=== PATIENT | female | born 1935 | race Caucasian/White ===

== ENCOUNTER → 2023-11-21 12:19 | Outpatient (REF) | payer MEDICARE, BC, SELFPAY ==
[2023-11-21 14:22] LABS: % Basophils 0.7 % (0-2); % Eosinophils 1.9 % (0-6); % Immature Granulocytes 0.2 % (0-0.5); % Lymphocytes 18.8 % (20.5-51.1); % Monocytes 8.9 % (1.7-9.3); % Neutrophils 69.5 % (42.2-75.2); Absolute Eosinophils 0.1 10^3/uL (0-0.7); Absolute Lymphocytes 0.8 10^3/uL (1.2-3.4); Absolute Monocytes 0.4 10^3/uL (0.1-0.6); Absolute Neutrophils 2.9 10^3/uL (1.4-6.5); Hematocrit 32.4 % (37.0-47.0); Hemoglobin 10.6 g/dL (12.0-16.0); Mean Corp Hgb Conc. 32.7 g/dL (33.0-37.0); Mean Corpuscular Volume 94.7 fL (81.0-99.0); Mean Platelet Volume 10.7 fL (7.4-10.4); Nucleated Red Blood Cells % 0 %; Platelet Count 211 10^3/uL (130-400); Red Blood Cell Count 3.42 10^6/uL (4.20-5.40); White Blood Cell Count 4.2 10^3/uL (4.8-10.8)
[2023-11-21 15:02] LABS: TSH Reflex To Free T4 9.54 uIU/ml (0.47-4.68)
[2023-11-21 15:32] LABS: Free T4 2.28 ng/dl (0.78-2.19)
== END ==
LOC: HWLAB 12:19
PROVIDERS: ATTENDING PHYSICIAN Family Medicine
DX: D64.9 Anemia, unspecified (principal); E78.5 Hyperlipidemia, unspecified
CPT/HCPCS: 36415; 84439; 84443; 85025

== ENCOUNTER → 2023-12-09 12:39 | Outpatient (REF) | payer MEDICARE, BC, SELFPAY ==
[2023-12-09 15:35] LABS: % Basophils 0.4 % (0-2); % Eosinophils 1.2 % (0-6); % Immature Granulocytes 0.2 % (0-0.5); % Lymphocytes 15.5 % (20.5-51.1); % Neutrophils 73.7 % (42.2-75.2); Absolute Eosinophils 0.1 10^3/uL (0-0.7); Absolute Lymphocytes 0.8 10^3/uL (1.2-3.4); Absolute Monocytes 0.4 10^3/uL (0.1-0.6); Absolute Neutrophils 3.6 10^3/uL (1.4-6.5); Hematocrit 36.4 % (37.0-47.0); Hemoglobin 11.8 g/dL (12.0-16.0); Mean Corp Hgb Conc. 32.4 g/dL (33.0-37.0); Mean Corpuscular Hgb 30.5 pg (27.0-31.0); Mean Corpuscular Volume 94.1 fL (81.0-99.0); Nucleated Red Blood Cells % 0 %; Red Blood Cell Count 3.87 10^6/uL (4.20-5.40); Red Cell Dist. Width 15.3 % (11.5-14.5); White Blood Cell Count 4.9 10^3/uL (4.8-10.8)
[2023-12-09 15:51] LABS: ALT (SGPT) 38 U/L (0-35); AST (SGOT) 47 U/L (14-36); Alkaline Phosphatase 112 U/L (38-126); Blood Urea Nitrogen 30 mg/dl (7-17); Calcium 9.5 mg/dl (8.4-10.2); Carbon Dioxide 32 mmol/L (22-30); Chloride 95 mmol/L (98-107); Glucose 108 mg/dl (70-99); Iron 83 ug/dl (37-170); Sodium 135 mmol/L (135-145); Total Bilirubin 0.9 mg/dl (0.2-1.3); Total Protein 7.1 g/dl (6.3-8.2); eGFR > 60.00
[2023-12-09 15:53] LABS: NT-proBNP 2310 pg/ml
[2023-12-09 16:01] LABS: Percent Saturation 27 % (20-50); Total Iron Binding Capacity 302 ug/dl (265-497)
[2023-12-09 16:39] LABS: Free T4 1.93 ng/dl (0.78-2.19)
== END ==
LOC: HWLAB 12:39
PROVIDERS: ATTENDING PHYSICIAN Internal Medicine Hematology & Oncology; FAMILY PHYSICIAN Family Medicine; REFERRING PHYSICIAN Internal Medicine Cardiovascular Disease
DX: D50.9 Iron deficiency anemia, unspecified (principal); I48.0 Paroxysmal atrial fibrillation; I50.32 Chronic diastolic (congestive) heart failure; Z95.2 Presence of prosthetic heart valve; R06.02 Shortness of breath
CPT/HCPCS: 36415; 71046; 80053; 82728; 83540; 83550; 83880; 84439; 84443; 85025

== ENCOUNTER → 2023-12-25 06:29 | Day surgery (SDC) | payer MEDICARE, BC, SELFPAY | LOC: GI 06:29 | PROVIDERS: ATTENDING PHYSICIAN Specialist | DX: R13.10 Dysphagia, unspecified (principal); R11.2 Nausea with vomiting, unspecified; K31.89 Other diseases of stomach and duodenum; K29.50 Unspecified chronic gastritis without bleeding | CPT/HCPCS: 43239; 88305; 88342 ==

== ENCOUNTER 2023-12-27 22:21 | Inpatient (IN) | payer MEDICARE, BC, SELFPAY ==
[2023-12-27 20:15] VITALS: BP 106/58
[2023-12-27 20:18] VITALS: BMI 16.2
[2023-12-27 20:19] VITALS: BP 106/58
[2023-12-27 20:32] LABS: % Basophils 0.4 % (0-2); % Eosinophils 0.1 % (0-6); % Immature Granulocytes 0.3 % (0-0.5); % Lymphocytes 15.5 % (20.5-51.1); % Monocytes 10.3 % (1.7-9.3); % Neutrophils 73.4 % (42.2-75.2); Absolute Lymphocytes 1.1 10^3/uL (1.2-3.4); Absolute Monocytes 0.8 10^3/uL (0.1-0.6); Absolute Neutrophils 5.4 10^3/uL (1.4-6.5); Hematocrit 37.9 % (37.0-47.0); Hemoglobin 12.9 g/dL (12.0-16.0); Mean Corpuscular Hgb 30.4 pg (27.0-31.0); Mean Corpuscular Volume 89.4 fL (81.0-99.0); Mean Platelet Volume 10.5 fL (7.4-10.4); Nucleated Red Blood Cells % 0 %; Platelet Count 217 10^3/uL (130-400); Red Blood Cell Count 4.24 10^6/uL (4.20-5.40); Red Cell Dist. Width 14.2 % (11.5-14.5); White Blood Cell Count 7.3 10^3/uL (4.8-10.8)
[2023-12-27 20:53] LABS: ALT (SGPT) 61 U/L (0-35); AST (SGOT) 70 U/L (14-36); Albumin 3.2 g/dl (3.5-5.0); Alkaline Phosphatase 81 U/L (38-126); Blood Urea Nitrogen 18 mg/dl (7-17); Calcium 7.7 mg/dl (8.4-10.2); Carbon Dioxide 27 mmol/L (22-30); Chloride 100 mmol/L (98-107); Estimated Creatinine Clearance 45 ml/min; Glucose 103 mg/dl (70-99); Potassium 2.7 mmol/L (3.5-5.1); Sodium 132 mmol/L (135-145); Total Bilirubin 0.8 mg/dl (0.2-1.3); Total Protein 5.9 g/dl (6.3-8.2); eGFR > 60.00
[2023-12-27 21:00] VITALS: BP 73/56
[2023-12-27 21:04] VITALS: BP 92/51
[2023-12-27 21:13] LABS: Magnesium 1.5 mg/dl (1.6-2.3)
[2023-12-27] MEDS: NSS 500 IV (21:16)
--- NOTE | 2023-12-27 21:18 | ED.GENMED ---
History of Present Illness
General
Chief Complaint: Weakness
Source: patient
Time Seen by Provider: 12/27/23 20:54
Travel History
Have you had any contact with someone who has COVID-19?: No
Do you have any symptoms of coronavirus? Fever > 100 degrees, chills, cough, shortness of breath, sore throat, loss of taste or smell, muscle aches, or headache?: No
History of Present Illness
History of Present Illness:
88-year-old female with past medical history of atrial fibrillation, CHF, multiple chronic GI symptoms status post endoscopy 2 days ago presenting to the emergency department via EMS from home due to generalized weakness, poor p.o. intake and
generally feeling unwell since her endoscopy 2 days ago. Patient states when she awoke this morning she felt very lightheaded noting that the night prior she had vomited at least twice. She notes that she was able to tolerate a Coca-[employer]a
yesterday. Patient has secondary concern of feeling as if she is in A-fib noting some intermittent palpitations. She is currently not anticoagulated as she notes she was cardioverted about 8 months ago followed by cardiology she no to be a blood
thinner. Patient is denying any chest pain, palpitations currently, diaphoresis, exertional dyspnea, orthopnea. Patient notes that she is very upset as she has many different things that are causing her complications physically and she does not
know why.
Past History
Past History
ED Past Medical History: Arrthythmia (PAF, s/p AV replacement April 2016), CHF, GERD, Hypercholesterolemia, Valvular disease (, s/p AVR) and Other ( pneumonia, hiatal hernia, arthritis, cataracts, glaucoma, macular degeneration, shingles, skin
cancer, small bowel obstruction)
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
surgery)
Patient has exhibited threatening behavior?: No
Social History
Tobacco: Non-smoker
Alcohol: None
Drug: None
Personal:
Living: alone
Employment: Retired
Family History
Family History: Other (Nonsignificant)
Review of Systems
Review of Systems
All Other Systems: ROS reviewed and negative except as documented in HPI and ROS
Phy Exam
Physical Exam
Physical Exam:
GENERAL: Alert , in no apparent distress, thin and frail
head: Normocephalic atraumatic
EYE: Clear conjunctiva
NECK: Supple
ENT: o/p clr, mmm.
CARDIAC: Irregularly irregular, t heart rate between 88 and 107 bpm
LUNGS: Clear breath sounds bilaterally, no acute respiratory distress,
ABDOMEN: Soft, without focal tenderness, no r/g, no cvat
NEUROLOGICAL: Alert and oriented
SKIN: Warm and dry, skin intact.
MUSCULOSKELETAL: No edema, well perfused.
PSYCH: Normal and appropriate interaction.
Scores
Heart Failure Risk
Heart Failure Risk Score: Not Applicable
Heart Score for Chest Pain Patients
STEMI patient?: Not applicable
Withdrawal Assessment of Alcohol
Withdrawal Assessment Completed?: Not applicable
Course
Orders/Labs/Results
Orders:
Orders
12/27/23 20:05
Electrocardiogram (*1) Urgent
Reason for Study: Fatigue / Weakness
EKG- Treatment ONCE
12/27/23 20:22
CMP [Comprehensive Metabolic Panel] Urgent
Complete Blood Count/With Diff Routine
Magnesium Urgent
Comment: ADD ON
12/27/23 20:55
Add On- LAB Urgent
Tests Added?: magnesium, parathyroid hormone, troponin
12/27/23 20:56
Potassium Chloride [KCl] 40 meq PO NOW STA
12/27/23 21:09
0.9% Sodium Chloride 500 ml [Nss] 500 ml IV BOLUS
12/27/23 21:19
COVID-19 Antigen Urgent
Source: Nasal Swab
Influenza A+B Rapid Molecular Urgent
GIO Source: Nasal Swab
Specimen Description:
Ondansetron Injectable [Zofran] 4 mg IV NOW STA
12/27/23 21:37
Magnesium Sulfate 2 Gram/50 ml [Magnesium Sulfate] 2 gram in 50 ml IV NOW
12/27/23 21:40
Potassium Chloride [KCl] 40 meq 0.9% Sodium Chloride 250 ml [Nss] 250 ml IV NOW
12/27/23 21:47
Troponin I Urgent
12/27/23 21:53
Admit/Transfer Patient As Directed
Co-Sign Provider:
Level of Care: Inpatient admission
Assign to:: Telemetry
Physician / Group: [email or web address]
Diagnosis: Recurrent prox AF, mild hypotension, Hypokalemia, low Mg
Reason for Telemetry: Arrhythmia
Date to Stop Telemetry: 12/30/23
Time to Stop Telemetry: 11:00
Reason for Hospitalization: Recurrent prox AF, mild hypotension, Hypokalemia, low Mg
Expected length of stay greater than two midnights?: Yes
ELOS- Estimated Length of Stay in days: 3
I certify the patient meets the requirements for IP care: Yes
12/27/23 21:56
Code Status As Directed
Resuscitation Status: Full Code
12/27/23 22:05
Code Status As Directed
Resuscitation Status: Do not resuscitate
Based on pt advanced directive or healthcare POA form: Yes
Decision communicated with: patient in the presence of RN
DNR Bracelet Application ONCE
12/30/23 11:00
DC Protocol for Telemetry ONCE
Abnormal Lab Results
12/27/23
20:22
MPV 10.5 H fL
(7.4-10.4)
Absolute Lymphs (auto) 1.1 L 10^3/uL
(1.2-3.4)
Absolute Monos (auto) 0.8 H 10^3/uL
(0.1-0.6)
Lymphocytes % 15.5 L %
(20.5-51.1)
Monocytes % 10.3 H %
(1.7-9.3)
Sodium 132 L mmol/L
(135-145)
Potassium 2.7 L* mmol/L
(3.5-5.1)
BUN 18 H mg/dl
(7-17)
Glucose 103 H mg/dl
(70-99)
Calcium 7.7 L mg/dl
(8.4-10.2)
Magnesium 1.5 L mg/dl
(1.6-2.3)
AST 70 H U/L
(14-36)
ALT 61 H U/L
(0-35)
Total Protein 5.9 L g/dl
(6.3-8.2)
Albumin 3.2 L g/dl
(3.5-5.0)
12/27/23 20:22
12/27/23 20:22
Vital Signs
Initial and Last Documented VS:
Initial Vital Signs
Pulse Ox
98
12/27/23 20:11
Last Documented Vital Signs
Temp Pulse Resp BP Pulse Ox
97.9 F 97 20 106/58 98
12/27/23 20:19 12/27/23 20:19 12/27/23 20:19 12/27/23 20:19 12/27/23 20:19
MDM/Problems Addressed
Differential Diagnosis Includes:
Anemia, electrolyte disturbance, dehydration, orthostasis/volume depletion, cardiac dysrhythmia, valvular dysfunction, less concern for ACS
MDM/Problems Addressed:
88-year-old female presented emergency department noting generalized weakness, nausea, difficult time tolerating p.o. Patient is clearly very frustrated and upset with her symptoms. She is also upset about her being in atrial fibrillation.
Currently not a cardioversion candidate given she is not anticoagulated. Her heart rate is relatively controlled right now so we will hold off on giving any rate control medications especially given her borderline hypotension. Will treat with 500
mL saline bolus. Labs have been initiated by triage and patient does have a potassium of 2.7, calcium of 7.7 and a mild transaminitis. I added on additional lab work. Oral and IV repletion of potassium ordered. Plan to admit.
Chronic conditions affecting care: Arrhythmia
Acute Exacerbation and/or Progression of Chronic Illness: Arrhythmia
*Pulse Oximetry
Patient hypoxic: no
*Critical Care Note
Total Time (30-74mins, 75-104mins- exclusive of procedures): Not Applicable
Data Reviewed
Review of Other/Old Records Reveals: Labs and Testing
Source: patient
Comment
Comment:
Patient's endoscopy from 2 days ago shows concerns for eosinophilic esophagitis. Specimens were sent for pathology have not been resulted yet.
Patient Management
Discussion with other providers: Hospitalist
Escalation/DeEscalation of care consider admission/obs:
Hospitalist team accepts for continued evaluation and treatment.
ED Attending Note
-
Portions of this chart may have been created with voice recognition software.� Occasional wrong word or��sound alike� substitutions may have occurred due to the inherent limitations of voice recognition software.
Discharge Plan
Departure
Patient Disposition: Admit
Date of Disposition: 12/27/23
Time of Disposition: 21:18
Presentation/result/management discussed w/ accepting MD/DO: Hospitalist
Discharge Problem:
Hypokalemia, Atrial fibrillation, Acute hypotension, Hypocalcemia
Prescriptions:
No Action
propranolol 10 MG tablet
5 mg PO DAILY
lorazepam 1 MG tablet
1 mg PO HS
Patient Comments:
12/27/2023: LAST FILLED 10/15/23, 270 TABS FOR 30 DAYS FROM [facility]
Lumigan 1 DROP drops
1 drp BOTH EYES HS
Saccharomyces boulardii [Florastor] 250 mg Capsule
250 mg PO DAILY
furosemide 40 MG tablet
40 mg PO DAILY
zinc 50 mg Tablet
50 mg PO DAILY
cyanocobalamin (vitamin B-12) 1,000 mcg Capsule
1,000 mcg PO DAILY
amiodarone [Pacerone] 200 mg tablet
200 mg PO DAILY@0600
cholecalciferol (vitamin D3) [Vitamin D3] 25 mcg (1,000 unit) Tablet
25 mcg PO DAILY
potassium chloride 20 mEq tablet extended release
20 meq PO DAILY
omeprazole 20 mg capsule,delayed release(DR/EC)
40 mg PO DAILY
ondansetron 4 mg tablet,disintegrating
4 mg PO Q8H PRN (Reason: nausea/vomiting)
levothyroxine [Synthroid] 50 mcg tablet
50 mcg PO DAILY@0600
Referrals:
Enrrique Montana DO [Family Provider] -
Interventions
Interventions:
*Risk Screen - Suicide Last Done: 12/27/23 20:10
*General Assessment Last Done: 12/27/23 20:09
*Neglect/Abuse Screening Last Done: 12/27/23 20:10
ED- Fall Risk Assessment Last Done: 12/27/23 20:11
*ED COVID-19 Vaccine History Last Done: 12/27/23 20:09
ED- Cardiac Assessment Last Done: 12/27/23 20:11
ED- Neurological Assessment Last Done: 12/27/23 20:11
ED- Pulmonary Assessment Last Done: 12/27/23 20:11
[2023-12-27] MEDS: ZOFRAN 4 MG IV (21:25)
[2023-12-27] MEDS: KCL 40 MEQ PO (21:25)
[2023-12-27 21:44] LABS: COVID-19 Antigen Negative (Negative)
--- NOTE | 2023-12-27 21:46 | HPS.HSE ---
Family Physician
-
Family Physician: Enrrique Montana
Chief Complaint
-
poor POs, vomited at least times 2 nad weak
History of Present Illness
88F s/p EGD 2 days ago [facility] for poor POs, vomited at least times 2 s/p EGD. Reports tolerate to soft drinks yesterday.
HX AF not on AC reports intermittent palpitation. Not on Eliquis per patient due to she was in NSR. Current EKG shows back in AF with control VR. HX CV 8 months ago.
HX Chr HFpEF on Lasix. Noted K 2.7. Mg 1.5
HX Aortic Stenosis s/p Bioprosthetic Aortic Valve Replacement
Medical History
Past Medical History
Past Medical History: Reports Other
Additional Past Medical History:
Paroxysmal Atrial Fibrillation
Chronic Diastolic Heart Failure
Aortic Stenosis s/p Bioprosthetic Aortic Valve Replacement
Hypothyroidism
GERD
Ocular Migraine
Anxiety
Past Surgical History: Reports Other
Additional Past Surgical History:
Small Bowel Resection
Appendectomy
Hysterectomy
Melanoma Removal
Parotid Tumor Removal
Right Meniscus Repair
Social History
Tobacco: Non-smoker
Alcohol: None
Family History
Family History: Not pertinent
Allergies / Home Medications
Allergies reflects when Allergies were last updated in [employer].
Home Medications with original date entered in [employer]
Allergy/Medication List:
Allergies
Allergy/AdvReac Type Severity Reaction Status Date / Time
amlodipine Allergy lower Verified 04/03/23 14:41
extremity
edema
cefazolin sodium [From [facility]] Allergy trachea Verified 04/03/23 14:41
swelling
Home Medications
lorazepam 1 mg tablet 1 mg PO HS Sleep 01/03/21
propranolol 10 mg tablet 5 mg PO DAILY ocular migraines 01/03/21
bimatoprost 0.01 % eye drops (Lumigan) 1 drp BOTH EYES HS Eye condition 09/12/21
Saccharomyces boulardii 250 mg capsule (Florastor) 250 mg PO DAILY Supplement 10/11/22
furosemide 40 mg tablet 40 mg PO DAILY Fluid retention/Swelling 10/11/22
amiodarone 200 mg tablet (Pacerone) 200 mg PO DAILY@0600 Arrhythmia 10/31/22
cyanocobalamin (vitamin B-12) 1,000 mcg capsule 1,000 mcg PO DAILY Supplement 10/31/22
zinc 50 mg tablet 50 mg PO DAILY Supplement 10/31/22
cholecalciferol (vitamin D3) 25 mcg (1,000 unit) tablet (Vitamin D3) 25 mcg PO DAILY Supplement 06/11/23
potassium chloride 20 mEq tablet,extended release 20 meq PO DAILY Electrolyte Repletion 06/11/23
levothyroxine 50 mcg tablet (Synthroid) 50 mcg PO DAILY@0600 12/27/23
omeprazole 20 mg capsule,delayed release 40 mg PO DAILY 12/27/23
ondansetron 4 mg disintegrating tablet 4 mg PO Q8H PRN nausea/vomiting 12/27/23
Review of Systems
-
Constitutional: Reports See HPI and Other (weakness )
EENT: Reports No Symptoms
Respiratory: Reports No Symptoms
Cardiac: Reports Palpitations
Abdomen/GI: Reports No Symptoms
: Reports No Symptoms
Musculoskeletal: Reports No Symptoms
Skin: Reports No Symptoms
Neurological: Reports No Symptoms
Endocrine: Reports No Symptoms
Hematologic/Lymphatic: Reports No Symptoms
Psych: Reports No Symptoms
Physical Exam
Vital Signs
Vital Signs
Temp Pulse Resp BP Pulse Ox
97.9 F 97 20 106/58 98
12/27/23 20:19 12/27/23 20:19 12/27/23 20:19 12/27/23 20:19 12/27/23 20:19
Physical Exam
General: Well Developed and Well Nourished
HEENT: Anicteric and Moist mucous membranes
Respiratory: Clear and Non Labored Respirations
Cardiac: Irregular Rhythm and Murmur (3/6 Systolic Murmur heard best at upper sternal border))
GI: Soft and Non Tender
Rectal: Deferred by Provider
Genito-urinary: Deferred by me
Musculoskeletal: No Edema
Skin: Warm
Neuro: AO x 3
Psych: Calm and Intact Judgment/Insight
Laboratory Results
-
12/27/23 20:22
12/27/23 20:22
Laboratory Results
Total Bilirubin 0.8 mg/dl (0.2-1.3) 12/27/23 20:22
AST 70 U/L (14-36) H 12/27/23 20:22
ALT 61 U/L (0-35) H 12/27/23 20:22
Alkaline Phosphatase 81 U/L (38-126) 12/27/23 20:22
Troponin I Cancelled 12/27/23 21:19
Data Reviewed
-
Medical Tests (Nuc Med, Echo, EKG etc): Report Reviewed by me
Lab Data: Labs Reviewed by me
Old Records: Reviewed
Impression/Plan
-
Reviewed VS: Afebrile HR 97 BP 105/60 POx RR 20 98 0n RA
Data
Nl CBC
Na 132
K 2.7 Mg 1.5
CO2 27
BUN 18
BFR > 60
BG 103
Ca 7.7 pending iPTH Alb 3.2 = corrected Ca 8.3
AST 70 ALT 61
Pending proBNP
Pending TSH
Pending TPNI
Pending Covid Ag
EKG
ATRIAL FIBRILLATION WITH A COMPETING JUNCTIONAL PACEMAKER
RIGHTWARD AXIS
MINIMAL VOLTAGE CRITERIA FOR LVH, MAY BE NORMAL VARIANT ( Andres product )
ST and T WAVE ABNORMALITY, CONSIDER INFERIOR ISCHEMIA
ST and T WAVE ABNORMALITY, CONSIDER ANTEROLATERAL ISCHEMIA
PROLONGED QT
ABNORMAL ECG
WHEN COMPARED WITH ECG OF 11-APR-2023 11:15,
SIGNIFICANT CHANGES HAVE OCCURRED
Last hospitalist admission: 06/11/23 - 06/15/23 DX; partial SBO
ASSESSMENT & PLAN
Recurrence of Paroxysmal AF with VR in 90s suspect due to hypokalemia
marginal hypotension
- Currently not on Eliquis but previously on it - will resume 2.5 mg BID
- cont. amiodarone
- TLM monitor
- DCA card consult
Generalized weakness
Associated with severe hypokalemia and hypomagnesemia
Mild hypocalcemia but corrected Ca 8.3
- S/p IV K Rogelio 40 mEq plus IV Mg Sulfate 2 gm
- PT/OT
- Fall precaution
- Observe CMP and Mg in AM
Mild transaminitis ? hypoperfused liver due to mild hypotension
- trend LFTs
HX Chronic HFpEF
HX Aortic Stenosis s/p Bioprosthetic Aortic Valve Replacement
-Hold Lasix for now
-Monitor IOs and daily Weights
Hypothyroidism
- on levothyroxine
GERD
- on Protonix
HX Ocular Migraine
- on propranolol
DVT Px: Eliquis
Code: DNR confirmed by patient
IP TLM
[2023-12-27 22:00] VITALS: BP 99/59
[2023-12-27] MEDS: KCL 270 MEQ IV (22:18)
[2023-12-27] MEDS: MAGNESIUM SULFATE 50 IV (22:18)
[2023-12-27 22:22] LABS: Troponin I 0.022 ng/ml
[2023-12-27 23:00] VITALS: BP 88/61
[2023-12-28] VITALS (10 sets, daily range): BP systolic 88–123; BP diastolic 53–76; PULSE 88–133; O2SAT 95; BMI 16.7
--- NOTE | 2023-12-28 00:20 | PTCARENOTE ---
Patient arrived to 3W 336-1 from ED via stretcher, patient awake and alert, weak, pulled over from stretcher to bed with assist of 3 people. Patient currently with no complaints, denies pain, SOB, palpitations at this time. Mg rider running,
maintained. Initiated on environmental monitoring technician #6 -- AFib with BBBC with HR 80-90s. Verified DNR bracelet on patient. Call cuellar within reach, patient oriented to room and unit, verbalizes understanding on use of call cuellar for assistance. Will continue
to monitor.
[2023-12-28] MEDS: ATIVAN 1 MG PO ×2 (01:37→21:42)
[2023-12-28] MEDS: LUMIGAN 0.01% 1 DROP BOTH EYES ×2 (01:37→21:42)
[2023-12-28] MEDS: ZOFRAN 4 MG IV (01:56)
[2023-12-28] MEDS: FLUSH (NSS) 1 FLUSH IV (01:57)
[2023-12-28] MEDS: PACERONE 200 MG PO (05:56)
[2023-12-28] MEDS: SYNTHROID 50 MCG PO (05:56)
[2023-12-28 06:48] LABS: Hematocrit 34.6 % (37.0-47.0); Hemoglobin 11.8 g/dL (12.0-16.0); Mean Corp Hgb Conc. 34.1 g/dL (33.0-37.0); Mean Corpuscular Volume 90.8 fL (81.0-99.0); Mean Platelet Volume 10.8 fL (7.4-10.4); Platelet Count 216 10^3/uL (130-400); Red Blood Cell Count 3.81 10^6/uL (4.20-5.40); Red Cell Dist. Width 14.3 % (11.5-14.5); White Blood Cell Count 7.4 10^3/uL (4.8-10.8)
[2023-12-28 07:40] LABS: ALT (SGPT) 65 U/L (0-35); AST (SGOT) 63 U/L (14-36); Albumin 3.1 g/dl (3.5-5.0); Alkaline Phosphatase 95 U/L (38-126); Blood Urea Nitrogen 21 mg/dl (7-17); Calcium 8.3 mg/dl (8.4-10.2); Carbon Dioxide 31 mmol/L (22-30); Chloride 98 mmol/L (98-107); Estimated Creatinine Clearance 39 ml/min; Glucose 93 mg/dl (70-99); Magnesium 2.3 mg/dl (1.6-2.3); Potassium 4.1 mmol/L (3.5-5.1); Sodium 134 mmol/L (135-145); Total Bilirubin 0.6 mg/dl (0.2-1.3); Total Protein 5.7 g/dl (6.3-8.2); eGFR > 60.00
[2023-12-28 07:59] LABS: TSH 7.15 uIU/ml (0.47-4.68)
[2023-12-28] MEDS: INDERAL PO (09:15)
[2023-12-28] MEDS: ELIQUIS 2.5 MG PO ×2 (09:25→20:33)
[2023-12-28] MEDS: PROTONIX 40 MG PO (09:26)
[2023-12-28] MEDS: KCL 40 MEQ PO (09:27)
[2023-12-28] MEDS: FLORASTOR 250 MG PO (09:27)
--- NOTE | 2023-12-28 09:29 | CON.CAR ---
Addendum entered and electronically signed by Art Morales MD 12/28/23 10:31:
I saw and examined the patient.
The Airplane Cabin Attendant's note was reviewed and I agree with the note.
Comment: Briefly, 88-year-old woman past medical history of paroxysmal atrial fibrillation and heart failure with preserved ejection fraction who has had several days of nausea and vomiting and has been unable to tolerate oral meds due to this. She
presented to the ER for evaluation and was found to have significant electrolyte abnormalities.
She remains in atrial fibrillation which is rate controlled
Would continue home amiodarone and Eliquis
Once she has been compliant with oral anticoagulation for 3 to 4 weeks could plan for direct-current cardioversion to restore sinus rhythm if she remains in persistent atrial fibrillation
Hypotension noted, previously recommended to discontinue propranolol per recommendation by primary profiler operator CLEMENCIA Rhodes, my understanding is patient has been taking propranolol for migraine
Original Note:
Consultation
Consultation Request
Date/Time Consultation Requested: 12/28/2023
Date/Time Consultation Performed: 12/28/2023 at 0900
Requesting Provider: Dr. Carrillo
Performing Provider: Dr. Morales
Reason for Consultation: Afib
Medical History
-
History of Present Illness:
HPI: Radha is an 88 year old female with PMH of paroxysmal atrial fibrillation on chronic amiodarone, chronic HFpEF, HTN, macular degeneration, hypothyroidism, GERD, and migraines. She presented to [facility] for evaluation after she had recurrent afib
yesterday evening. She states for the past few days she has had nausea and vomiting and has not been able to keep down any of her food or medications. She had endoscopy on 12/24 which noted erythematous mucosa in the gastric body and antrum which was
biopsied. Otherwise no significant findings. She has continued to have significant vomiting and yesterday noted her apple watch alerted that she was in afib which prompted her visit to the ER. EKG on arrival confirmed she was in rate controlled
atrial fibrillation and she was restarted on anticoagulation with Eliquis 2.5mg BID. She also was noted to be hypokalemic with K of 2.7 and mag of 1.5. She was admitted for further workup and evaluation and cardiology consulted given recurrent afib.
She reports she is feeling better this morning after potassium and magnesium supplementation and was able to keep down her morning medications. She remains in rate controlled atrial fibrillation, but is not significantly symptomatic with this.
PMH:
Paroxysmal atrial fibrillation
Chronic amiodarone therapy
Chronic HFpEF
Moderate to severe MR
s/p bioprosthetic AVR in 2016
Hypertension
Macular degeneration, wet
Hypothyroidism
GERD
Ocular migraines
Past Medical History
Past Medical History: Other (In HPI)
Past Surgical History: Appendectomy, Gynecological (hysterectomy, vaginal prolapse repair) and Other (small bowel resection, parotid tumor removal, R ankle repair)
Social History
Tobacco: Non-Smoker
Alcohol: None
Drug: None
Personal:
Employment: Retired
Family History
Family History: Cancer and Hypertension
Allergies / Home Medications
Allergy/AdvReac Type Severity Reaction Status Date / Time
amlodipine Allergy lower Verified 04/03/23 14:41
extremity
edema
cefazolin sodium [From [facility]] Allergy trachea Verified 04/03/23 14:41
swelling
Medication Instructions Recorded Confirmed Type
lorazepam 1 mg tablet 1 mg PO HS Sleep 01/03/21 12/27/23 History
propranolol 10 mg tablet 5 mg PO DAILY ocular migraines 01/03/21 12/27/23 History
bimatoprost 0.01 % eye drops 1 drp BOTH EYES HS Eye condition 09/12/21 12/27/23 History
(Lumigan)
Saccharomyces boulardii 250 mg 250 mg PO DAILY Supplement 10/11/22 12/27/23 History
capsule (Florastor)
furosemide 40 mg tablet 40 mg PO DAILY Fluid 10/11/22 12/27/23 History
retention/Swelling
amiodarone 200 mg tablet (Pacerone) 200 mg PO DAILY@0600 Arrhythmia 10/31/22 12/27/23 History
cyanocobalamin (vitamin B-12) 1,000 mcg PO DAILY Supplement 10/31/22 12/27/23 History
1,000 mcg capsule
zinc 50 mg tablet 50 mg PO DAILY Supplement 10/31/22 12/27/23 History
cholecalciferol (vitamin D3) 25 25 mcg PO DAILY Supplement 06/11/23 12/27/23 History
mcg (1,000 unit) tablet (Vitamin
D3)
potassium chloride 20 mEq 20 meq PO DAILY Electrolyte 06/11/23 12/27/23 History
tablet,extended release Repletion
levothyroxine 50 mcg tablet 50 mcg PO DAILY@0600 12/27/23 12/27/23 History
(Synthroid)
omeprazole 20 mg capsule,delayed 40 mg PO DAILY 12/27/23 12/27/23 History
release
ondansetron 4 mg disintegrating 4 mg PO Q8H PRN nausea/vomiting 12/27/23 12/27/23 History
tablet
Review of Systems
-
History Source: Patient
All other systems: Negative unless noted
Physical Exam
Vital Signs
Temp Pulse Resp BP Pulse Ox
97.5 F 99 18 91/56 96
12/28/23 07:00 12/28/23 07:00 12/28/23 07:00 12/28/23 07:00 12/28/23 07:00
Lab Results
12/28/23 05:41
12/28/23 05:41
Troponin I 0.022 ng/ml 12/27/23 21:47
Physical Exam
General: No Apparent Distress and Other (cachectic)
HEENT: Normocephalic, Anicteric and Moist Mucous Membranes
Respiratory: Clear and Non Labored Respirations
Cardiac: S1/S2 and Irregular Rhythm
Musculoskeletal: No Clubbing, No Cyanosis and No Edema
Skin: Warm and Dry
Neuro: AO x 3 and Nonfocal/Grossly Intact
Psych: Calm
Impression / Plan
-
PCP: Dr. Montana
Motion Study Engineer: Dr. Rhodes
Impression:
Presented with recurrent Afib
Nausea/vomiting
Hypokalemia
Hypomagnesemia
Paroxysmal atrial fibrillation
Chronic amiodarone therapy
Chronic HFpEF
Moderate to severe MR
s/p bioprosthetic AVR in 2015
Hypertension
Macular degeneration, wet
Hypothyroidism
GERD
Ocular migraines
Echo 07/27/2022: EF 60 to 65%, mild concentric LVH, no regional wall motion abnormality seen, stage II diastolic dysfunction, densely thickened mitral valve leaflets with MAC, mild MS with mean gradient of 5, moderate to severe MR, well-seated
bioprosthetic aortic valve with peak/mean gradients 28/16 mmHg, mild TR, PAP 46 mmHg
Plan:
-Presented with recurrent afib after significant nausea and vomiting for days prior to arrival. She has not been able to keep down any medications including her amiodarone or KCl
-K 2.7 on arrival with mag of 1.5. Repleted overnight and K is up to 4.1 and mag now up to 2.3.
-Remains in rate controlled afib on review of telemetry. Continue amiodarone 200mg daily. HR stable in 70s to 80s.
-Eliquis 25mg BID restarted in AM 12/28/2023. Had not been on anticoagulation prior to arrival as she had been maintaining SR.
-TSH 7.15. Check free T4. Continue levothyroxine.
-Lasix held on admission due to hypokalemia, likely can resume as now normalized. Does not appear volume overloaded.
-Advance diet as tolerated.
-May consider eventual CV once she has been on uninterrupted AC for 4 weeks.
-Follow up arranged w/ primary profiler operator.
HPI: Radha is an 88 year old female with PMH of paroxysmal atrial fibrillation on chronic amiodarone, chronic HFpEF, HTN, macular degeneration, hypothyroidism, GERD, and migraines. She presented to [facility] for evaluation after she had recurrent afib
yesterday evening. She states for the past few days she has had nausea and vomiting and has not been able to keep down any of her food or medications. She had endoscopy on 12/24 which noted erythematous mucosa in the gastric body and antrum which was
biopsied. Otherwise no significant findings. She has continued to have significant vomiting and yesterday noted her apple watch alerted that she was in afib which prompted her visit to the ER. EKG on arrival confirmed she was in rate controlled
atrial fibrillation and she was restarted on anticoagulation with Eliquis 2.5mg BID. She also was noted to be hypokalemic with K of 2.7 and mag of 1.5. She was admitted for further workup and evaluation and cardiology consulted given recurrent afib.
She reports she is feeling better this morning after potassium and magnesium supplementation and was able to keep down her morning medications. She remains in rate controlled atrial fibrillation, but is not significantly symptomatic with this.
Data Reviewed
-
EKG: Tracing Personally Visualized and interpreted
Labs: Labs Reviewed by me
Old Records: Reviewed
[2023-12-28 10:24] LABS: Intact PTH 39.4 pg/ml (13.6-85.8)
[2023-12-28 11:16] LABS: Free T4 2.13 ng/dl (0.78-2.19)
--- NOTE | 2023-12-28 12:29 | W.PN.HOSP.TC ---
Today's Communication/Plan
-
Monitor vital signs and see plan
Continue with amiodarone
Check CT abdomen/pelvis
Continue with clears for now, if unable to tolerate then will get GI evaluation
Assessment / Plan
Assessment / Plan
General: Well Developed and Well Nourished
HEENT: Anicteric and Moist mucous membranes
Respiratory: Clear and Non Labored Respirations
Cardiac: Irregular Rhythm and Murmur (3/6 Systolic Murmur)
GI: Soft and Non Tender
Musculoskeletal: No Edema
Neuro: AO x 3
Psych: Calm and Intact Judgment/Insight
Recurrence of Paroxysmal Afib suspect due to hypokalemia
marginal hypotension
- Currently not on Eliquis but� previously on it - will resume 2.5 mg BID
- cont.� amiodarone
- cardiology following
Hypokalemia
Monitor
Periods of nausea and vomiting
Recent EGD 12/24 with erythematous mucosa in the gastric body and antrum. GI at that time recommended CT abdomen/pelvis if symptoms persist. Will order CT scan now.
cw clears for now; if symptoms persistent will get GI evaluation
Per pathology report findings could be secondary to celiac disease
Generalized weakness
Associated with severe hypokalemia and hypomagnesemia
Monitor electrolytes
Mild transaminitis
trend; monitor
HX Chronic HFpEF
HX Aortic Stenosis s/p Bioprosthetic Aortic Valve Replacement
-Hold Lasix� for now give periods of hypotension
-Monitor IOs and daily Weights
Hypothyroidism
Elevated TSH however normal free T4
- on levothyroxine
GERD
- on� Protonix
HX Ocular Migraine
- on propranolol
DVT Px:� Eliquis
Code: DNR confirmed by patient
I spent a total of 52 minutes with the patient or on the floor. More than 50% of this time involved counseling and coordination of care.
Anticipated Discharge: > 48 hours
Subjective/Interval History
-
Date of Service: December 28, 2023
has some nausea
Objective Data
-
Labs:
Laboratory Results
12/28/23
05:41
WBC 7.4
Hgb 11.8 L
Hct 34.6 L
Plt Count 216
Sodium 134 L
Potassium 4.1 D
Chloride 98
Carbon Dioxide 31 H
BUN 21 H
Creatinine 0.7
Glucose 93
Calcium 8.3 L
Total Bilirubin 0.6
AST 63 H
ALT 65 H
Alkaline Phosphatase 95
Vital Signs:
Vital Signs
Temp Pulse Resp BP Pulse Ox
97.5 F 85 16 96/57 98
12/28/23 11:00 12/28/23 11:00 12/28/23 11:00 12/28/23 11:00 12/28/23 11:00
--- NOTE | 2023-12-28 12:58 | CM ---
Reviewed chart, met with patient to obtain information for assessment. Patient's son was at bedside. Patient stated that she lives alone in a duplex with four steps to enter. Patient reported that she is independent with ADLs, personal care,
bathing, dressing and toileting She does have a walker that she uses for long distances. She has a shower chair.
Patient stated that she can do tourist guide, cooks although she hates it, does laundry and has hired someone to clean.
Patient denied having VN services. She has never been to a SNF.
Patient has a prescription plan and uses [facility] for all of her medications.
Her PCP is Enrrique Montana MD.
Patient requested VN post this admission. Will make referral.
Plan: Case management will continue to follow and assist with discharge planning. Patient would like to return home with VN and selected [facility].
[2023-12-28] MEDS: OMNIPAQUE 50 ML PO (13:01)
[2023-12-29 03:25] VITALS: BP 106/66
[2023-12-29 05:24] VITALS: BMI 15.4
[2023-12-29] MEDS: PACERONE 200 MG PO (06:05)
[2023-12-29] MEDS: SYNTHROID 50 MCG PO (06:05)
[2023-12-29 07:00] VITALS: BP 100/59
[2023-12-29 07:31] LABS: % Basophils 0.6 % (0-2); % Eosinophils 1.4 % (0-6); % Immature Granulocytes 0.6 % (0-0.5); % Lymphocytes 24.8 % (20.5-51.1); % Monocytes 12.6 % (1.7-9.3); Absolute Eosinophils 0.1 10^3/uL (0-0.7); Absolute Lymphocytes 1.2 10^3/uL (1.2-3.4); Absolute Monocytes 0.6 10^3/uL (0.1-0.6); Hematocrit 33.6 % (37.0-47.0); Hemoglobin 10.9 g/dL (12.0-16.0); Mean Corp Hgb Conc. 32.4 g/dL (33.0-37.0); Mean Corpuscular Hgb 30.2 pg (27.0-31.0); Mean Corpuscular Volume 93.1 fL (81.0-99.0); Mean Platelet Volume 10.9 fL (7.4-10.4); Nucleated Red Blood Cells % 0 %; Platelet Count 203 10^3/uL (130-400); Red Blood Cell Count 3.61 10^6/uL (4.20-5.40); Red Cell Dist. Width 14.3 % (11.5-14.5)
[2023-12-29 08:06] LABS: Blood Urea Nitrogen 19 mg/dl (7-17); Calcium 8.4 mg/dl (8.4-10.2); Carbon Dioxide 29 mmol/L (22-30); Chloride 97 mmol/L (98-107); Estimated Creatinine Clearance 36 ml/min; Glucose 77 mg/dl (70-99); Sodium 130 mmol/L (135-145); eGFR > 60.00
[2023-12-29] MEDS: KCL 40 MEQ PO (09:28)
[2023-12-29] MEDS: ELIQUIS 2.5 MG PO ×2 (09:28→20:58)
[2023-12-29] MEDS: PROTONIX 40 MG PO (09:28)
[2023-12-29] MEDS: FLORASTOR 250 MG PO (09:29)
[2023-12-29] MEDS: INDERAL PO (09:29)
[2023-12-29 11:00] VITALS: BP 95/67
--- NOTE | 2023-12-29 11:33 | W.PN.CARDCBS ---
Today's Communication / Plan
-
Hold lasix for now given poor PO intake
Impression / Plan
-
PCP: Dr. Montana
Hack Saw Operator: Dr. Rhodes
Impression:
Presented with recurrent Afib
Nausea/vomiting
Hypokalemia
Hypomagnesemia
Paroxysmal atrial fibrillation
Chronic amiodarone therapy
Chronic HFpEF
Moderate to severe MR
s/p bioprosthetic AVR in 2015
Hypertension
Macular degeneration, wet
Hypothyroidism
GERD
Ocular migraines
Echo 07/27/2022: EF 60 to 65%, mild concentric LVH, no regional wall motion abnormality seen, stage II diastolic dysfunction, densely thickened mitral valve leaflets with MAC, mild MS with mean gradient of 5, moderate to severe MR, well-seated
bioprosthetic aortic valve with peak/mean gradients 28/16 mmHg, mild TR, PAP 46 mmHg
Plan:
-Presented with recurrent afib after significant nausea and vomiting for days prior to arrival. She has not been able to keep down any medications including her amiodarone or KCl
-K 2.7 on arrival with mag of 1.5. Repleted overnight and K is up to 4.1 and mag now up to 2.3.
-Remains in rate controlled afib on review of telemetry. Continue amiodarone 200mg daily. HR stable in 70s to 80s.
-Eliquis 2.5mg BID restarted in AM 12/28/2023. Had not been on anticoagulation prior to arrival as she had been maintaining SR.
-May consider eventual CV once she has been on uninterrupted AC for 4 weeks.
-Lasix held on admission due to hypokalemia
-Given poor PO intake would hold off on lasix for now
-Follow up arranged w/ primary 2 year olds preschool teacher.
HPI: Radha is an 88 year old female with PMH of paroxysmal atrial fibrillation on chronic amiodarone, chronic HFpEF, HTN, macular degeneration, hypothyroidism, GERD, and migraines. She presented to [facility] for evaluation after she had recurrent afib
yesterday evening. She states for the past few days she has had nausea and vomiting and has not been able to keep down any of her food or medications. She had endoscopy on 12/24 which noted erythematous mucosa in the gastric body and antrum which was
biopsied. Otherwise no significant findings. She has continued to have significant vomiting and yesterday noted her apple watch alerted that she was in afib which prompted her visit to the ER. EKG on arrival confirmed she was in rate controlled
atrial fibrillation and she was restarted on anticoagulation with Eliquis 2.5mg BID. She also was noted to be hypokalemic with K of 2.7 and mag of 1.5. She was admitted for further workup and evaluation and cardiology consulted given recurrent afib.
She reports she is feeling better this morning after potassium and magnesium supplementation and was able to keep down her morning medications. She remains in rate controlled atrial fibrillation, but is not significantly symptomatic with this.
Progress Note - Hack Saw Operator
Subjective
Date of Service: December 29, 2023
No acute overnight events. Patient tells me she continues to have difficulty keeping down food due to nausea. No chest discomfort or shortness of breath.
Objective
Labs:
12/29/23 05:26
12/29/23 05:26
Labs
Hgb 10.9 g/dL (12.0-16.0) L 12/29/23 05:26
Hct 33.6 % (37.0-47.0) L 12/29/23 05:26
Plt Count 203 10^3/uL (130-400) 12/29/23 05:26
Sodium 130 mmol/L (135-145) L 12/29/23 05:26
Potassium 4.0 mmol/L (3.5-5.1) 12/29/23 05:26
BUN 19 mg/dl (7-17) H 12/29/23 05:26
Creatinine 0.7 mg/dL (0.6-1.0) 12/29/23 05:26
Glucose 77 mg/dl (70-99) 12/29/23 05:26
Troponins
12/27/23 12/27/23
21:19 21:47
Troponin I Cancelled 0.022
Vital Signs and I&O:
Vital Signs
Temp Pulse Resp BP Pulse Ox
97.4 F 80 16 95/67 99
12/29/23 11:00 12/29/23 11:00 12/29/23 11:00 12/29/23 11:00 12/29/23 11:00
Vital Signs
Temp Pulse Resp BP Pulse Ox
97.4 F 80 16 95/67 99
12/29/23 11:00 12/29/23 11:00 12/29/23 11:00 12/29/23 11:00 12/29/23 11:00
Intake & Output
12/27/23 12/28/23 12/29/23 12/30/23
06:59 06:59 06:59 06:59
Intake Total 900 / 900 480 / 480
Balance 900 / 900 480 / 480
Physical Exam
Physical Exam
Gen: NAD, AA, frail appearing
HEENT: NC/AT, sclera anicteric
Neck: No JVD
CV: Irregularly irregular
Lungs: CTAB
Abd: S/ND
Ext: No LE edema
Skin: Warm, dry
Neuro: Non-focal
--- NOTE | 2023-12-29 12:04 | W.PN.HOSP.TC ---
Today's Communication/Plan
-
Monitor vital signs see plan
Advance diet to fulls with gluten-free
Celiac panel in a.m.
Hold Lasix
Monitor sodium
Assessment / Plan
Assessment / Plan
General: Well Developed and Well Nourished
HEENT: Anicteric and Moist mucous membranes
Respiratory: Clear and Non Labored Respirations
Cardiac: Irregular Rhythm and Murmur (/ Systolic Murmur)
GI: Soft and Non Tender
Musculoskeletal: No Edema
Neuro: AO x 3
Psych: Calm and Intact Judgment/Insight
Recurrence of Paroxysmal Afib suspect due to hypokalemia
marginal hypotension
- Currently not on Eliquis but� previously on it - will resume 2.5 mg BID
- cont.� amiodarone
- cardiology following
Hypokalemia
improved
Periods of nausea and vomiting
Recent EGD 12/24 with erythematous mucosa in the gastric body and antrum. GI at that time recommended CT abdomen/pelvis if symptoms persist. CT scan 12/27 consistent with nonspecific enteritis.. Spoke with Dr. Fernandes and will order celiac panel for
tomorrow morning.
Now feeling better, upgrade diet to fulls (gluten free); advance diet as tolerated; if symptoms persistent will get GI evaluation
Per pathology report findings could be secondary to celiac disease
Hyponatremia
monitor
Generalized weakness
Associated with severe hypokalemia and hypomagnesemia
Monitor electrolytes
Mild transaminitis
trend; monitor
HX Chronic HFpEF
HX Aortic Stenosis s/p Bioprosthetic Aortic Valve Replacement
-Hold Lasix� for now give periods of hypotension
-Monitor IOs and daily Weights
Hypothyroidism
Elevated TSH however normal free T4
- on levothyroxine
GERD
- on� Protonix
HX Ocular Migraine
- on propranolol
DVT Px:� Eliquis
Code: DNR confirmed by patient
Anticipated Discharge: Within 24 hours
Subjective/Interval History
-
Date of Service: December 29, 2023
does have some abdominal discomfort
Objective Data
-
Labs:
Laboratory Results
12/29/23
05:26
WBC 5.0
Hgb 10.9 L
Hct 33.6 L
Plt Count 203
Sodium 130 L
Potassium 4.0
Chloride 97 L
Carbon Dioxide 29
BUN 19 H
Creatinine 0.7
Glucose 77
Calcium 8.4
Vital Signs:
Vital Signs
Temp Pulse Resp BP Pulse Ox
97.4 F 80 16 95/67 99
12/29/23 11:00 12/29/23 11:00 12/29/23 11:00 12/29/23 11:00 12/29/23 11:00
I&O
12/28/23 12/29/23 12/30/23
06:59 06:59 06:59
Intake Total 900 / 900 480 / 480
Balance 900 / 900 480 / 480
[2023-12-29 14:57] VITALS: BMI 15.4
[2023-12-29 15:00] VITALS: BP 132/81
[2023-12-29 19:32] VITALS: BP 136/78
[2023-12-29] MEDS: LUMIGAN 0.01% 1 DROP BOTH EYES (20:59)
[2023-12-29] MEDS: ATIVAN 1 MG PO (20:59)
[2023-12-30] VITALS (8 sets, daily range): BP systolic 94–136; BP diastolic 64–90; PULSE 87; BMI 15.5
[2023-12-30 05:48] LABS: % Basophils 0.4 % (0-2); % Eosinophils 1.1 % (0-6); % Immature Granulocytes 0.4 % (0-0.5); % Lymphocytes 26.2 % (20.5-51.1); % Monocytes 10.7 % (1.7-9.3); % Neutrophils 61.2 % (42.2-75.2); Absolute Eosinophils 0.1 10^3/uL (0-0.7); Absolute Lymphocytes 1.4 10^3/uL (1.2-3.4); Absolute Monocytes 0.6 10^3/uL (0.1-0.6); Absolute Neutrophils 3.2 10^3/uL (1.4-6.5); Hemoglobin 10.9 g/dL (12.0-16.0); Mean Corpuscular Hgb 30.2 pg (27.0-31.0); Mean Corpuscular Volume 91.4 fL (81.0-99.0); Mean Platelet Volume 10.4 fL (7.4-10.4); Nucleated Red Blood Cells % 0 %; Platelet Count 190 10^3/uL (130-400); Red Blood Cell Count 3.61 10^6/uL (4.20-5.40); Red Cell Dist. Width 14.4 % (11.5-14.5); White Blood Cell Count 5.2 10^3/uL (4.8-10.8)
[2023-12-30] MEDS: PACERONE 200 MG PO (05:59)
[2023-12-30] MEDS: SYNTHROID 50 MCG PO (05:59)
[2023-12-30 06:09] LABS: Blood Urea Nitrogen 19 mg/dl (7-17); Calcium 8.5 mg/dl (8.4-10.2); Carbon Dioxide 29 mmol/L (22-30); Chloride 99 mmol/L (98-107); Estimated Creatinine Clearance 36 ml/min; Glucose 83 mg/dl (70-99); Potassium 4.6 mmol/L (3.5-5.1); Sodium 130 mmol/L (135-145); eGFR > 60.00
[2023-12-30 06:18] LABS: IgA 438 mg/dl (70-400)
[2023-12-30] MEDS: ELIQUIS 2.5 MG PO ×2 (08:40→20:31)
[2023-12-30] MEDS: FLORASTOR 250 MG PO (08:40)
[2023-12-30] MEDS: INDERAL 5 MG PO (08:40)
[2023-12-30] MEDS: KCL PO ×2 (08:40→09:19)
[2023-12-30] MEDS: PROTONIX 40 MG PO (08:42)
[2023-12-30 09:59] LABS: NT-proBNP 5170 pg/ml
--- NOTE | 2023-12-30 10:23 | W.PN.HOSP.TC ---
Today's Communication/Plan
-
see bold
Assessment / Plan
Assessment / Plan
Gen: NAD, Awake and alert, appears chronically ill/cachectic/malnourished
Eyes: EOMI, PERRLA, no scleral icterus.
Neck: supple.
CV: irreg/irreg, +S1/S2, no m/r/g.
Resp: CTAB, no rales, wheezes, or rhonchi.
Abd: +BS, soft, NT, ND
Skin: No rashes.
Neuro: CN 2-12 intact, non-focal.
Psych: slightly anxious
Recurrence of Paroxysmal Afib suspect due to hypokalemia
marginal hypotension
-Eliquis restarted at 2.5 mg BID
- cont.� amiodarone
- cardiology following
Periods of nausea and vomiting
Recent EGD 12/24 with erythematous mucosa in the gastric body and antrum. GI at that time recommended CT abdomen/pelvis if symptoms persist. CT scan 12/27 consistent with nonspecific enteritis.. Spoke with Dr. Fernandes and will order celiac panel for
tomorrow morning.
Now feeling better, upgrade diet to LR (gluten free), if symptoms persistent will get GI evaluation
Per pathology report findings could be secondary to celiac disease
Chronic HFpEF:
-h/o Aortic Stenosis s/p Bioprosthetic Aortic Valve Replacement
-Holding Lasix� for now give periods of hypotension
-Monitor IOs and daily Weights
Other problems:
Hypothyroidism: TSH 7.15, fT4 normal, cont home dose Levoxyl
GERD: cont PPI
h/o Ocular Migraines: cont propranolol
Generalized weakness, likely due to electrolyte abnormalities
Mild transaminitis, outpt f/u
Hypokalemia, resolved
Hypomagnesemia, resolved
Hyponatremia, mild
DNR/Eliquis
Anticipated Discharge: Within 24 hours
Subjective/Interval History
-
Date of Service: December 30, 2023
c/o epigastric discomfort (not pain) after eating. No vomiting overnight or today.
Objective Data
-
Labs:
Laboratory Results
12/30/23
05:23
WBC 5.2
Hgb 10.9 L
Hct 33.0 L
Plt Count 190
Sodium 130 L
Potassium 4.6
Chloride 99
Carbon Dioxide 29
BUN 19 H
Creatinine 0.7
Glucose 83
Calcium 8.5
Vital Signs:
Vital Signs
Temp Pulse Resp BP Pulse Ox
97.3 F 90 16 109/64 96
12/30/23 07:00 12/30/23 08:40 12/30/23 07:00 12/30/23 08:40 12/30/23 07:00
I&O
12/29/23 12/30/23 12/31/23
06:59 06:59 06:59
Intake Total 900 / 900 1380 / 1380
Balance 900 / 900 1380 / 1380
--- NOTE | 2023-12-30 10:41 | W.PN.CARDCBS ---
Addendum entered and electronically signed by Rich Rhodes MD 12/30/23 12:29:
Her nausea is improved.
Allergies: Amlodipine and cefazolin
Outpatient medications amiodarone, 200 mg a day just decreased to 100 mg a day, furosemide 40 mg a day, Synthroid, Ativan, Lumigan, omeprazole, Zofran, potassium 20 mill equivalents daily, propranolol 5 mg a day and zinc
Current medications: Synthroid 50 mics a day, pantoprazole, amiodarone 200 mg a day, potassium, propranolol 5 mg daily, apixaban 2.5 mg twice daily
PMH/PSH/SH/FH: Reviewed
Review of systems negative except as above
109/64, pulse 90, weight 40.9 kg, up 0.4 kg
Cachectic, not in distress, eating breakfast, diminished breath sounds right base, JVD okay, irregular rate and rhythm loud MR murmur, rate relatively controlled, abdomen benign, extremities without edema, neuro nonfocal
Hemoglobin 10.9, sodium 130, potassium 4.6, BUN and creatinine 19 and 0.7
ECG: Atrial flutter, pulse 94, was in sinus rhythm in July
CT of abdomen and pelvis: Possible enteritis, small right pleural effusion with atelectasis, gastric distention
EGD performed December 2023, erythema of gastric mucosa, biopsy normal, evaluation for eosinophilic esophagitis
Celiac antibodies pending
Tissue biopsy from last weeks suggestive of celiac disease
Impression:
Presented with recurrent Afib, probably recent onset
Nausea/vomiting, possibly related to celiac disease
Weight loss, underweight, BMI 15.5
Hypokalemia
Hypomagnesemia
Paroxysmal atrial fibrillation
Chronic amiodarone therapy
Chronic HFpEF
Moderate to severe MR, not a candidate for MitraClip
s/p bioprosthetic AVR in 2015
Hypertension
Macular degeneration, wet
Hypothyroidism
GERD
Ocular migraines
Echo 07/27/2022: EF 60 to 65%, mild concentric LVH, no regional wall motion abnormality seen, stage II diastolic dysfunction, densely thickened mitral valve leaflets with MAC, mild MS with mean gradient of 5, moderate to severe MR, well-seated
bioprosthetic aortic valve with peak/mean gradients 28/16 mmHg, mild TR, PAP 46 mmHg
Plan:
Her volume status is probably reasonable, but chronic HFpEF has been a problem, and when she was in atrial fibrillation/flutter years ago her heart failure was very difficult or impossible to control. Furthermore, she is a poor long-term
anticoagulation candidate, so reestablishment of sinus rhythm it would be of value.
.
Unfortunately there are no good solutions for her mitral regurgitation. She has been evaluated in the past at [facility] and is not a candidate for MitraClip.
It seems that amiodarone is probably not the cause of her nausea. Celiac disease may be the underlying problem. Amiodarone can be continued.
.
She is now anticoagulated. Heart rate control is not perfect but reasonable. We offered the option of cardioversion as an outpatient after anticoagulation for 3 to 4 weeks versus transesophageal echo and cardioversion prior to discharge. Based on
her sense of wellbeing she would prefer to leave in normal sinus rhythm.
Will plan on transesophageal echo and cardioversion in a.m.
Check proBNP, likely restart furosemide soon.
Original Note:
Today's Communication / Plan
-
RAUL/CV in AM
Cont amiodarone
Lasix on hold, but weight is down
Impression / Plan
-
PCP: Dr. Montana
Die Sinking Machine Operator: Dr. Rhodes
Impression:
Presented with recurrent Afib
Nausea/vomiting
Weight loss, underweight, BMI 15.5
Hypokalemia
Hypomagnesemia
Paroxysmal atrial fibrillation
recurrence prior to admission
Chronic amiodarone therapy
Chronic HFpEF
Moderate to severe MR
s/p bioprosthetic AVR in 2015
Hypertension
Macular degeneration, wet
Hypothyroidism
GERD
Ocular migraines
Echo 07/27/2022: EF 60 to 65%, mild concentric LVH, no regional wall motion abnormality seen, stage II diastolic dysfunction, densely thickened mitral valve leaflets with MAC, mild MS with mean gradient of 5, moderate to severe MR, well-seated
bioprosthetic aortic valve with peak/mean gradients 28/16 mmHg, mild TR, PAP 46 mmHg
Plan:
-Patient reports ongoing discomfort shortly after eating any food.
-From a CV standpoint the patient reports recurrence of known paroxysmal Afib a few days prior to admission associated with N/V after an EGD 12/25/23. Patient was started on Eliquis 2.5 mg BID 12/28/23 AM, but prior to that she was not taking OAC due
to h/o vitreous hemorrhage
-Will arrange for a RAUL/CV 12/31/23
-Cont outpatient dose of amiodarone 200 mg daily.
-Sodium stable at 130 and potassium repleted to 4.6
-Outpatient dose of Lasix 40 mg PO daily held on admission due to N/V and hypokalemia. Weight is down 4 lbs this admission without diuretics and of note weight is overall down compared to last admission 06/2023. Patient is underweight.
-Outpatient dose of propranolol 5 mg daily for migraines has been continued as well.
-Patient with known severe MR, but she is not a candidate for open repair, minimally invasive repair nor MitraClip.
HPI: Radha is an 88 year old female with PMH of paroxysmal atrial fibrillation on chronic amiodarone, chronic HFpEF, HTN, macular degeneration, hypothyroidism, GERD, and migraines. She presented to [facility] for evaluation after she had recurrent afib
yesterday evening. She states for the past few days she has had nausea and vomiting and has not been able to keep down any of her food or medications. She had endoscopy on 12/24 which noted erythematous mucosa in the gastric body and antrum which was
biopsied. Otherwise no significant findings. She has continued to have significant vomiting and yesterday noted her apple watch alerted that she was in afib which prompted her visit to the ER. EKG on arrival confirmed she was in rate controlled
atrial fibrillation and she was restarted on anticoagulation with Eliquis 2.5mg BID. She also was noted to be hypokalemic with K of 2.7 and mag of 1.5. She was admitted for further workup and evaluation and cardiology consulted given recurrent afib.
She reports she is feeling better this morning after potassium and magnesium supplementation and was able to keep down her morning medications. She remains in rate controlled atrial fibrillation, but is not significantly symptomatic with this.
Progress Note - Die Sinking Machine Operator
Subjective
Date of Service: December 30, 2023
Patient complains of discomfort
Objective
Labs:
12/30/23 05:23
12/30/23 05:23
Labs
Hgb 10.9 g/dL (12.0-16.0) L 12/30/23 05:23
Hct 33.0 % (37.0-47.0) L 12/30/23 05:23
Plt Count 190 10^3/uL (130-400) 12/30/23 05:23
Sodium 130 mmol/L (135-145) L 12/30/23 05:23
Potassium 4.6 mmol/L (3.5-5.1) 12/30/23 05:23
BUN 19 mg/dl (7-17) H 12/30/23 05:23
Creatinine 0.7 mg/dL (0.6-1.0) 12/30/23 05:23
Glucose 83 mg/dl (70-99) 12/30/23 05:23
Troponins
12/27/23 12/27/23
21:19 21:47
Troponin I Cancelled 0.022
Vital Signs and I&O:
Vital Signs
Temp Pulse Resp BP Pulse Ox
97.3 F 90 16 109/64 96
12/30/23 07:00 12/30/23 08:40 12/30/23 07:00 12/30/23 08:40 12/30/23 07:00
Vital Signs
Temp Pulse Resp BP Pulse Ox
97.3 F 90 16 109/64 96
12/30/23 07:00 12/30/23 08:40 12/30/23 07:00 12/30/23 08:40 12/30/23 07:00
Intake & Output
12/28/23 12/29/23 12/30/23 12/31/23
06:59 06:59 06:59 06:59
Intake Total 900 / 900 1380 / 1380
Balance 900 / 900 1380 / 1380
Physical Exam
Physical Exam
Gen: NAD, frail appearing
HEENT: EOMI, wearing glasses
CV: Irregularly irregular
Lungs: No audible wheeze
Abd: ND
Ext: No LE edema
Skin: No rash
Neuro: Non-focal
--- NOTE | 2023-12-30 16:34 | CM ---
CM met with pt to discuss SNF
Declines SNF - prefers to go home with services
Has had [facility] in past
Plan - home with [facility]
[2023-12-30] MEDS: LUMIGAN 0.01% 1 DROP BOTH EYES (21:26)
[2023-12-30] MEDS: ATIVAN 1 MG PO (21:26)
[2023-12-31] VITALS (7 sets, daily range): BP systolic 100–134; BP diastolic 64–74; PULSE 70; O2SAT 99; BMI 15.7
[2023-12-31] MEDS: SYNTHROID 50 MCG PO (05:30)
[2023-12-31] MEDS: PACERONE 200 MG PO (05:30)
[2023-12-31 05:37] LABS: % Basophils 0.4 % (0-2); % Eosinophils 0.8 % (0-6); % Immature Granulocytes 0.4 % (0-0.5); % Lymphocytes 22.8 % (20.5-51.1); % Monocytes 10.6 % (1.7-9.3); Absolute Lymphocytes 1.1 10^3/uL (1.2-3.4); Absolute Monocytes 0.5 10^3/uL (0.1-0.6); Absolute Neutrophils 3.1 10^3/uL (1.4-6.5); Hematocrit 33.8 % (37.0-47.0); Hemoglobin 11.2 g/dL (12.0-16.0); Mean Corp Hgb Conc. 33.1 g/dL (33.0-37.0); Mean Corpuscular Hgb 30.4 pg (27.0-31.0); Mean Corpuscular Volume 91.6 fL (81.0-99.0); Mean Platelet Volume 10.8 fL (7.4-10.4); Nucleated Red Blood Cells % 0 %; Platelet Count 192 10^3/uL (130-400); Red Blood Cell Count 3.69 10^6/uL (4.20-5.40); Red Cell Dist. Width 14.2 % (11.5-14.5); White Blood Cell Count 4.8 10^3/uL (4.8-10.8)
[2023-12-31 06:16] LABS: Blood Urea Nitrogen 18 mg/dl (7-17); Calcium 8.5 mg/dl (8.4-10.2); Carbon Dioxide 28 mmol/L (22-30); Chloride 97 mmol/L (98-107); Estimated Creatinine Clearance 37 ml/min; Glucose 86 mg/dl (70-99); Magnesium 1.8 mg/dl (1.6-2.3); Potassium 4.4 mmol/L (3.5-5.1); Sodium 128 mmol/L (135-145); eGFR > 60.00
[2023-12-31] MEDS: INDERAL PO (08:16)
[2023-12-31] MEDS: ELIQUIS 2.5 MG PO ×2 (08:16→20:26)
[2023-12-31] MEDS: FLORASTOR 250 MG PO (08:16)
[2023-12-31] MEDS: PROTONIX 40 MG PO (08:16)
--- NOTE | 2023-12-31 09:50 | ITS.CL.CARDI ---
Drying Tumbler Operator - Cardioversion
Cardioversion
Procedure Report:
Date of Procedure:
Procedure: Cardioversion
Indication: Symptomatic atrial fibrillation
Performing Physician: Bry Pastrana MD
Technique: The patient was brought to the holding area. Signed informed consent was obtained. A time out was called and performed. The patient was anesthetized by the anesthesia service. Anticoagulation status was reviewed and appropriate. R2 pads
were placed anteriorly and posteriorly. After RAUL reveals no thrombus, A 200 J synchronized biphasic shock restored normal sinus rhythm without significant bradycardia. There were no complications.
Conclusion: Uncomplicated cardioversion from atrial fibrillation to sinus rhythm.
Recommendation: Routine post cardioversion care. Continue shelter anticoagulation.
--- NOTE | 2023-12-31 09:51 | W.PN.CARDCBS ---
Today's Communication / Plan
-
S/P RAUL/CV
Cont Amiodarone/Eliquis
restart lasix 40mg po daily
Follow Na.
Hopefully maintains sinus rhythm.
Impression / Plan
-
PCP: Dr. Montana
File Conversion Operator: Dr. Rhodes
Impression:
Presented with recurrent Afib
Nausea/vomiting
Weight loss, underweight, BMI 15.5
Hypokalemia
Hypomagnesemia
Paroxysmal atrial fibrillation
recurrence prior to admission
Chronic amiodarone therapy
Chronic HFpEF
Moderate to severe MR
s/p bioprosthetic AVR in 2015
Hypertension
Macular degeneration, wet
Hypothyroidism
GERD
Ocular migraines
Echo 07/27/2022: EF 60 to 65%, mild concentric LVH, no regional wall motion abnormality seen, stage II diastolic dysfunction, densely thickened mitral valve leaflets with MAC, mild MS with mean gradient of 5, moderate to severe MR, well-seated
bioprosthetic aortic valve with peak/mean gradients 28/16 mmHg, mild TR, PAP 46 mmHg
Echo 12/31/23: EF 60%, LVH, severe MR with mod MS. Mean gr 4.
Plan:
-Back in sinus rhythm s/p RAUL/CV
-Cont outpatient dose of amiodarone 200 mg daily.
-Sodium stable at 130 and potassium repleted to 4.6
-Resume Lasix 40mg daily
-Outpatient dose of propranolol 5 mg daily for migraines has been continued as well.
-Patient with known severe MR, but she is not a candidate for open repair, minimally invasive repair nor MitraClip.
HPI: Radha is an 88 year old female with PMH of paroxysmal atrial fibrillation on chronic amiodarone, chronic HFpEF, HTN, macular degeneration, hypothyroidism, GERD, and migraines. She presented to [facility] for evaluation after she had recurrent afib
yesterday evening. She states for the past few days she has had nausea and vomiting and has not been able to keep down any of her food or medications. She had endoscopy on 12/24 which noted erythematous mucosa in the gastric body and antrum which was
biopsied. Otherwise no significant findings. She has continued to have significant vomiting and yesterday noted her apple watch alerted that she was in afib which prompted her visit to the ER. EKG on arrival confirmed she was in rate controlled
atrial fibrillation and she was restarted on anticoagulation with Eliquis 2.5mg BID. She also was noted to be hypokalemic with K of 2.7 and mag of 1.5. She was admitted for further workup and evaluation and cardiology consulted given recurrent afib.
She reports she is feeling better this morning after potassium and magnesium supplementation and was able to keep down her morning medications. She remains in rate controlled atrial fibrillation, but is not significantly symptomatic with this.
Progress Note - File Conversion Operator
Subjective
Date of Service: December 31, 2023
back in sinus rhythm s/p CV. still with fatigue
Objective
Labs:
12/31/23 05:00
12/31/23 05:00
Labs
Hgb 11.2 g/dL (12.0-16.0) L 12/31/23 05:00
Hct 33.8 % (37.0-47.0) L 12/31/23 05:00
Plt Count 192 10^3/uL (130-400) 12/31/23 05:00
Sodium 128 mmol/L (135-145) L 12/31/23 05:00
Potassium 4.4 mmol/L (3.5-5.1) 12/31/23 05:00
BUN 18 mg/dl (7-17) H 12/31/23 05:00
Creatinine 0.7 mg/dL (0.6-1.0) 12/31/23 05:00
Glucose 86 mg/dl (70-99) 12/31/23 05:00
Vital Signs and I&O:
Vital Signs
Temp Pulse Resp BP Pulse Ox
97.8 F 70 18 100/66 97
12/31/23 08:02 12/31/23 08:02 12/31/23 08:02 12/31/23 08:02 12/31/23 08:02
Vital Signs
Temp Pulse Resp BP Pulse Ox
97.8 F 70 18 100/66 97
12/31/23 08:02 12/31/23 08:02 12/31/23 08:02 12/31/23 08:02 12/31/23 08:02
Intake & Output
12/29/23 12/30/23 12/31/23 01/01/24
06:59 06:59 06:59 06:59
Intake Total 900 / 900 1380 / 1380
Balance 900 / 900 1380 / 1380
Physical Exam
Physical Exam
GEN: No distress, awake, alert
HEENT: supple, anicteric, mmm
LUNGS: scatt rhonchi
CV: Reg, S1/S2, 3/6 syst apex, S3+
ABD: soft, BS+, NT/ND
EXT: No edema
NEURO: Gross non-focal
SKIN: No rash
--- NOTE | 2023-12-31 09:54 | PN.CDI ---
CDI
- -
CDI:
Physician Documentation Request
Admit Date: 12/27/23 22:21
Dear Doctor Nicholas,
Clinical Indicators:
Patient admitted with paroxysmal atrial fibrillation and hypokalemia.
BMI 15.7
12/30 PN, Assessment: 'appears chronically ill/cachectic/malnourished'
12/28 note/assessment: -'CBW reflects a 16lbs loss or 15% change in wt in approximately 6 months'.
-'Pt was observed with protruding clavicle, hollow orbital, temporal depression, exposed
ribs, buccal depression.'
-'Pt meets ASPEN and AND criteria for severe protein calorie malnutrition of
chronic illness with wt loss, decreased intake and observed fat and muscle loss.'
Based on the information, which of the following most accurately represents the patient's nutritional status?
Severe Protein Calorie Malnutrition
Cachexia without malnutrition
Other (please specify)
[place] Criteria (ACP Hospitalist 2017)
2 or more criteria must be present for either
non severe or severe malnutrition
Note that the criteria differs related to the
presence of an acute or chronic illness
Acute Illness Chronic Illness
Energy Intake Non Severe: <75% for >7 days Non Severe: <75% for >1 month
Severe: <50% for >5 days Severe: <75% for >1 month
Weight Loss Non Severe: 1-2% over 1 week Non Severe: 5% over 1 month
5% over 1 month 7.5% over 3 months
7.5% over 3 months 10% over 6 months
1 year N/A 20% over 1 year
Severe: >2% over 1 week Severe: >5% over 1 month
>5% over 1 month >7.5% over 3 months
>7.5% over 3 months >10% over 6 months
1 year N/A >20% over 1 year
Body Fat Non Severe: Mild Decrease Non Severe: Mild Loss
Severe: Moderate Decrease Severe: Severe Loss
Muscle Mass Non Severe: Mild Decrease Non Severe: Mild Loss
Severe: Moderate Decrease Severe: Severe Loss
Fluid Accumulation Non Severe: Mild Accumulation Non Severe: Mild Accumulation
Severe: Moderate to severe Severe: Moderate to severe
accumulation accumulation
Reduced [employer] Strength Non Severe: N/A Non Severe: N/A
Severe: Measurably reduced Severe: Measurably reduced
Additional criteria that can be used to Determine if Mild or Moderate Malnutrition (Merck Manual 2018)
Mild Moderate Severe
Albumin gm/dl <3.0 gm/dl <2.5 gm/dl <2.0 gm/dl
Pre Albumin mg/dl <15 gm/dl <10 mg/dl <5.0 mg/dl
BMI <18.5 <17 <16
Use of terms such as suspected, likely, concern for, or probable (associated with a specific diagnosis that is being evaluated, monitored, or treated as if it exists) are acceptable and can be coded in the inpatient setting, when documented at the
time of discharge.
Thank you,
RADHA Rodriguez RN
CDI Specialist
available via tiger text
Please use your independent medical judgment in providing your response.
--- NOTE | 2023-12-31 11:07 | W.PN.HOSP.TC ---
Today's Communication/Plan
-
Monitor vital signs and see plan
Monitor sodium
Successful cardioversion, continue to monitor
Assessment / Plan
Assessment / Plan
Gen: NAD, Awake and alert, appears chronically ill/cachectic/malnourished
Eyes: EOMI, PERRLA, no scleral icterus.
Neck: supple.
CV: regular, +S1/S2, no m/r/g.
Resp: CTAB, no rales, wheezes, or rhonchi.
Abd: +BS, soft, NT, ND
Skin: No rashes.
Neuro: CN 2-12 intact, non-focal.
Psych: slightly anxious
Recurrence of Paroxysmal Afib suspect due to hypokalemia
marginal hypotension
-Eliquis restarted at 2.5 mg BID
- cont.� amiodarone
- cardiology following; s/p RAUL CV and now in NSR
Periods of nausea and vomiting
Recent EGD 12/24 with erythematous mucosa in the gastric body and antrum. GI at that time recommended CT abdomen/pelvis if symptoms persist. CT scan 12/27 consistent with nonspecific enteritis.. Spoke with Dr. Fernandes and will order celiac panel for
tomorrow morning.
Now feeling better, upgrade diet to LR (gluten free), if symptoms persistent will get GI evaluation
Per pathology report findings could be secondary to celiac disease
Hyponatremia
Monitor
If persistent then will get urine and serum studies
Chronic HFpEF:
-h/o Aortic Stenosis s/p Bioprosthetic Aortic Valve Replacement
-Restart Lasix as recommended by cardiology
-Monitor IOs and daily Weights
Other problems:
Hypothyroidism: TSH 7.15, fT4 normal, cont home dose Levoxyl
GERD: cont PPI
h/o Ocular Migraines: cont propranolol
Generalized weakness, likely due to electrolyte abnormalities
Mild transaminitis, outpt f/u
Hypokalemia, resolved
Hypomagnesemia, resolved
DNR/Eliquis
Anticipated Discharge: Within 24 hours
Subjective/Interval History
-
Date of Service: December 31, 2023
denies pain
Objective Data
-
Labs:
Laboratory Results
12/31/23
05:00
WBC 4.8
Hgb 11.2 L
Hct 33.8 L
Plt Count 192
Sodium 128 L
Potassium 4.4
Chloride 97 L
Carbon Dioxide 28
BUN 18 H
Creatinine 0.7
Glucose 86
Calcium 8.5
Vital Signs:
Vital Signs
Temp Pulse Resp BP Pulse Ox
97.8 F 70 18 100/66 97
12/31/23 08:02 12/31/23 08:02 12/31/23 08:02 12/31/23 08:02 12/31/23 08:02
I&O
12/30/23 12/31/23 01/01/24
06:59 06:59 06:59
Intake Total 1380 / 1380
Balance 1380 / 1380
--- NOTE | 2023-12-31 14:49 | PN.CDI ---
CDI
- -
CDI:
Physician Documentation Request
Admit Date: 12/27/23 22:21
Dear Doctor Nicholas,
Clinical Indicators:
Patient admitted with paroxysmal atrial fibrillation and hypokalemia.
12/27 RN skin/wound assessment: -Bilateral Heels, Stage 1 Pressure Injury, POA
-Sacrum, Stage 1 Pressure Injury, POA
Treatment: Silicone border foam per protocol
Physician documentation of the type and location of wounds is required for compliant documentation. Based on the above clinical findings and your assessment, please provide the following in your progress note:
1. Location of the ulcer/wound, including laterality.
2. Type (etiology) of ulcer/wound:
- Pressure (decubitus) ulcer
- Other, please specify
- Unable to determine
3. If a pressure ulcer, please also include the stage* of the ulcer:
- Stage 1 - Skin intact, non-blanchable redness
- Stage 2 - Partial thickness loss of dermis, includes intact or open blister
- Stage 3 - Full thickness tissue not including bone, tendon or muscle
- Stage 4 - Full thickness tissue loss, including exposed bone, tendon or muscle
- Unstageable - Full thickness loss in which the base of the ulcer is covered by slough (yellow, marin, emerson, green or brown) and/or eschar (marin, brown or black) in the wound bed.
- Unable to determine
Use of terms such as suspected, likely, concern for, or probable (associated with a specific diagnosis that is being evaluated, monitored, or treated as if it exists) are acceptable and can be coded in the inpatient setting, when documented at the
time of discharge.
Thank you,
RADHA Rodriguez RN
CDI Specialist
available via tiger text
Please use your independent medical judgment in providing your response.
*Source: National Pressure Ulcer Advisory Panel (NPUAP)
[2023-12-31 17:12] LABS: Osmolality Serum 273 mOsm/kg (275-300)
[2023-12-31 21:37] LABS: Osmolality Urine 606 mOsm/kg (300-900)
[2023-12-31 21:42] LABS: Urine Sodium 12 mmol/L (30-90)
[2023-12-31] MEDS: LUMIGAN 0.01% 1 DROP BOTH EYES (21:48)
[2023-12-31] MEDS: ATIVAN 1 MG PO (21:48)
[2024-01-01 01:46] LABS: Endomysial IgA Antibody Titer <1:10 (<1:10)
[2024-01-01 03:17] VITALS: BP 119/56
[2024-01-01] MEDS: PACERONE 200 MG PO (05:29)
[2024-01-01] MEDS: SYNTHROID 50 MCG PO (05:29)
[2024-01-01 05:48] LABS: % Basophils 0.4 % (0-2); % Eosinophils 0.4 % (0-6); % Immature Granulocytes 0.5 % (0-0.5); % Lymphocytes 17.9 % (20.5-51.1); % Monocytes 12.3 % (1.7-9.3); % Neutrophils 68.5 % (42.2-75.2); Absolute Monocytes 0.7 10^3/uL (0.1-0.6); Absolute Neutrophils 3.9 10^3/uL (1.4-6.5); Hematocrit 32.7 % (37.0-47.0); Mean Corp Hgb Conc. 33.6 g/dL (33.0-37.0); Mean Corpuscular Hgb 30.6 pg (27.0-31.0); Mean Corpuscular Volume 91.1 fL (81.0-99.0); Mean Platelet Volume 10.9 fL (7.4-10.4); Nucleated Red Blood Cells % 0 %; Platelet Count 169 10^3/uL (130-400); Red Blood Cell Count 3.59 10^6/uL (4.20-5.40); Red Cell Dist. Width 14.2 % (11.5-14.5); White Blood Cell Count 5.7 10^3/uL (4.8-10.8)
[2024-01-01 06:00] VITALS: BMI 16.0
[2024-01-01 06:15] LABS: Blood Urea Nitrogen 22 mg/dl (7-17); Calcium 8.9 mg/dl (8.4-10.2); Carbon Dioxide 30 mmol/L (22-30); Chloride 95 mmol/L (98-107); Estimated Creatinine Clearance 38 ml/min; Glucose 93 mg/dl (70-99); Magnesium 1.8 mg/dl (1.6-2.3); Potassium 4.6 mmol/L (3.5-5.1); Sodium 130 mmol/L (135-145); eGFR > 60.00
[2024-01-01 07:00] VITALS: BP 113/57
[2024-01-01] MEDS: PROTONIX 40 MG PO (08:39)
[2024-01-01] MEDS: ELIQUIS 2.5 MG PO (08:39)
[2024-01-01] MEDS: LASIX 40 MG PO (08:39)
[2024-01-01] MEDS: FLORASTOR 250 MG PO (08:39)
[2024-01-01] MEDS: INDERAL 5 MG PO (08:44)
--- NOTE | 2024-01-01 10:12 | W.PN.HOSP.TC ---
Addendum entered and electronically signed by Tl Peterson MD 01/01/24 10:48:
Discussed with cardiology, will discharge home with outpatient follow-up
Time of discharge 38 minutes
Addendum entered and electronically signed by Tl Peterson MD 01/01/24 10:17:
Bilateral Heels, Stage 1 Pressure Injury, POA� � � � � � � � � � � � � � � � � � � � � � � � � � � � � �
Sacrum, Stage 1 Pressure Injury, POA
Severe Protein Calorie Malnutrition
Original Note:
Today's Communication/Plan
-
Monitor vital signs and see plan
Continue with Lasix as recommended by cardiology
Continues to be in sinus
DC today if okay with cardiology
Assessment / Plan
Assessment / Plan
Gen: NAD, Awake and alert, appears chronically ill/cachectic/malnourished
Eyes: EOMI, PERRLA, no scleral icterus.
Neck: supple.
CV: regular, +S1/S2, no m/r/g.
Resp: CTAB, no rales, wheezes, or rhonchi.
Abd: +BS, soft, NT, ND
Skin: No rashes.
Neuro: CN 2-12 intact, non-focal.
Psych: slightly anxious
Recurrence of Paroxysmal Afib suspect due to hypokalemia
marginal hypotension
-Eliquis restarted at 2.5 mg BID
- cont.� amiodarone
- cardiology following; s/p RAUL CV and now in NSR
Periods of nausea and vomiting
Recent EGD 12/24 with erythematous mucosa in the gastric body and antrum. GI at that time recommended CT abdomen/pelvis if symptoms persist. CT scan 12/27 consistent with nonspecific enteritis.. Spoke with Dr. Fernandes and will order celiac panel
pending; Patient to follow-up with GI outpatient
Now feeling better, upgrade diet to LR (gluten free), if symptoms persistent will get GI evaluation
Per pathology report findings could be secondary to celiac disease
Hyponatremia
Monitor
Chronic HFpEF:
-h/o Aortic Stenosis s/p Bioprosthetic Aortic Valve Replacement
-Restart Lasix as recommended by cardiology
-Monitor IOs and daily Weights
Other problems:
Hypothyroidism: TSH 7.15, fT4 normal, cont home dose Levoxyl
GERD: cont PPI
h/o Ocular Migraines: cont propranolol
Generalized weakness, likely due to electrolyte abnormalities
Mild transaminitis, outpt f/u
Hypokalemia, resolved
Hypomagnesemia, resolved
DNR/Eliquis
Anticipated Discharge: Today
Subjective/Interval History
-
Date of Service: January 01, 2024
denies vomiting
Objective Data
-
Labs:
Laboratory Results
01/01/24
05:11
WBC 5.7
Hgb 11.0 L
Hct 32.7 L
Plt Count 169
Sodium 130 L
Potassium 4.6
Chloride 95 L
Carbon Dioxide 30
BUN 22 H
Creatinine 0.7
Glucose 93
Calcium 8.9
Vital Signs:
Vital Signs
Temp Pulse Resp BP Pulse Ox
98.3 F 75 16 113/57 94
01/01/24 07:00 01/01/24 08:44 01/01/24 07:00 01/01/24 08:44 01/01/24 07:00
I&O
12/31/23 01/01/24 01/02/24
06:59 06:59 06:59
Intake Total 1180 / 1180
Balance 1180 / 1180
--- NOTE | 2024-01-01 10:47 | W.DCSUMMARY ---
Discharge Summary
Discharge Data
Date of Admission: 12/27/23
Date of Discharge: 01/01/24
-
Pending Results: Yes
Hospital Course
88-year-old female With past medical history of hypothyroidism, GERD, history of ocular migraines, paroxysmal atrial fibrillation came to the hospital with recurrence of atrial fibrillation and intermittent periods of nausea and vomiting. Patient
had a recent endoscopy which was concerning for possible celiac disease. I spoke with GI on this hospitalization and ordered celiac panel which was pending prior to discharge. Patient was started on gluten-free diet. CT scan was also done which
was consistent with nonspecific enteritis. Patient symptoms over time improved and patient was able to tolerate gluten-free diet. For her atrial fibrillation initially patient was treated conservatively however given her symptoms she went for
cardioversion on 12/31/2023. She converted then to normal sinus rhythm. Once her symptoms were improving, she was then discharged home with instructions to follow-up with all her physicians outpatient.
Discharge Plan
-
Patient Disposition: Home with Home Care
Discharge Diagnosis/Procedures: Recurrence of paroxysmal atrial fibrillation
Intermittent nausea and vomiting 2/2 enteritis
Hyponatremia
Diet: As tolerated
Activity: As tolerated
Driving Restrictions: As prior to admission
Bathing Restrictions: None
Referrals:
Jean Fernandes MD [Active] - in less than 1 week
Enrrique Montana DO [Family Provider] - in less than 1 week
Rich Rhodes MD [Active] - 01/21/24 8:40 am (You have a follow up visit with Dr. Rhodes at the [facility] in [place]. Please call with questions. )
Prescriptions:
New
Eliquis 2.5 mg Tablet
2.5 mg PO BID Qty: 60 0RF
Continued
propranolol 10 MG tablet
5 mg PO DAILY
lorazepam 1 MG tablet
1 mg PO HS
Patient Comments:
12/27/2023: LAST FILLED 01/02/24, 270 TABS FOR 30 DAYS FROM [facility]
Lumigan 1 DROP drops
1 drp BOTH EYES HS
Saccharomyces boulardii [Florastor] 250 mg Capsule
250 mg PO DAILY
furosemide 40 MG tablet
40 mg PO DAILY
zinc 50 mg Tablet
50 mg PO DAILY
cyanocobalamin (vitamin B-12) 1,000 mcg Capsule
1,000 mcg PO DAILY
amiodarone [Pacerone] 200 mg tablet
200 mg PO DAILY@0600
cholecalciferol (vitamin D3) [Vitamin D3] 25 mcg (1,000 unit) Tablet
25 mcg PO DAILY
potassium chloride 20 mEq tablet extended release
20 meq PO DAILY
omeprazole 20 mg capsule,delayed release(DR/EC)
40 mg PO DAILY
ondansetron 4 mg tablet,disintegrating
4 mg PO Q8H PRN (Reason: nausea/vomiting)
levothyroxine [Synthroid] 50 mcg tablet
50 mcg PO DAILY@0600
Discharge Orders:
Discharge Patient (As Directed); Ordered 01/01/24
Ordered By: Tl Peterson
Discharge Date and Time
Discharge Date/Time: 01/01/24 13:30
[2024-01-01 11:00] VITALS: BP 111/61
--- NOTE | 2024-01-01 11:26 | CM ---
MD entered order for discharge.
Spoke with patient she said that her neighbor Adri Orlando will [facility] home.
She said she was ready for dc and she agreed with IMM .
Pt requested [facility] notified [facility] liaison .
PLAN Home with [facility]
[2024-01-01 12:00] VITALS: BP 111/61; PULSE 70; O2SAT 97
[2024-01-01 13:15] VITALS: BP 111/61; PULSE 69; O2SAT 97
[2024-01-01 14:09] LABS: tTG IgA Antibody 10.6 EU/ml (0-19); tTG IgG Antibody 9.8 EU/ml (0-19)
--- NOTE | 2024-01-02 16:08 | VNURNOTE ---
Home Health Liaison attempted to meet with patient 12/31, to discuss [facility] nurse/therapy, visits, schedule and homebound status. Patient was already discharged to home. Call made [phone] and message left.
Message from patient this am that she is agreeable to VN.
Call returned and again no answer, message left.
[facility] referral completed and accepted in [facility].
== END 2024-01-01 13:30 | disposition home health service (06) | DRG 308 ==
LOC: 3 WEST ACU 22:21
PROVIDERS: Internal Medicine Cardiovascular Disease; Physician Assistant Medical; ADMITTING PHYSICIAN Internal Medicine; ATTENDING PHYSICIAN Internal Medicine; EMERGENCY PHYSICIAN Emergency Medicine; FAMILY PHYSICIAN Family Medicine; OTHER PHYSICIAN Internal Medicine Cardiovascular Disease
PROC: 5A2204Z Restoration of Cardiac Rhythm, Single (ICD-10-PCS; 2023-12-31)
DX: I48.0 Paroxysmal atrial fibrillation (principal); E43 Unspecified severe protein-calorie malnutrition; E87.1 Hypo-osmolality and hyponatremia; I50.32 Chronic diastolic (congestive) heart failure; Z68.1 Body mass index [BMI] 19.9 or less, adult; Z11.52 Encounter for screening for COVID-19; E87.6 Hypokalemia; I95.9 Hypotension, unspecified; Z66 Do not resuscitate; E83.51 Hypocalcemia; E83.42 Hypomagnesemia; I11.0 Hypertensive heart disease with heart failure; E03.9 Hypothyroidism, unspecified; K21.9 Gastro-esophageal reflux disease without esophagitis; Z79.01 Long term (current) use of anticoagulants; L89.151 Pressure ulcer of sacral region, stage 1; L89.621 Pressure ulcer of left heel, stage 1; L89.611 Pressure ulcer of right heel, stage 1; K52.9 Noninfective gastroenteritis and colitis, unspecified
CPT/HCPCS: 88305; 74177; 80048; 80053; 82784; 83516; 83735; 83880; 83930; 83935; 83970; 84300; 84439; 84443; 84484; 85025; 85027; 86231; 87502; 87811; 88342; 92960; 93005; 93312; 93320; 93325; 96361; 96365; 96366; 96375; 97116; 97163; 97166; 97530; 97535; 99284; Q9967

== ENCOUNTER 2024-01-27 22:19 | Inpatient (IN) | payer MEDICARE, BC, SELFPAY ==
[2024-01-27] VITALS (26 sets, daily range): BP systolic 70–120; BP diastolic 49–91; BMI 15.8; BMI 34.9
--- NOTE | 2024-01-27 16:05 | ED.GENMED ---
History of Present Illness
General
Chief Complaint: Heart Rate Problem
Source: patient, records and other (Friend)
Exam Limitations: none
Time Seen by Provider: 01/27/24 15:51
Nursing documentation reviewed up to this point in time: agreed with
Travel History
Have you had any contact with someone who has COVID-19?: No
Do you have any symptoms of coronavirus? Fever > 100 degrees, chills, cough, shortness of breath, sore throat, loss of taste or smell, muscle aches, or headache?: No
History of Present Illness
History of Present Illness:
88-year-old female with a past medical history presents to the emergency dizziness�found to be in A-fib cardiology appointment and was referred to the emergency room. Patient has known history of A-fib has been cardioverted 4 times most recently
12/31/[address] Pastrana. She says that this morning she woke up with dizziness/lightheadedness and [facility] told her that she was in A-fib with RVR. She called cardiology and was scheduled for an appoint with Dr. Rhodes; she was sent over to
the emergency room for evaluation and consideration for cardioversion. She denies any chest pain. She denies any shortness of breath. She denies any other complaints today. She is on Eliquis 2.5 mg twice daily and has been compliant including
this morning she says.
UPDATE
I was able to review cardiology note from her visit earlier today�sounds like addition to her lightheadedness she reported that she has had significant weight loss, nausea and poor appetite this has really been an ongoing issue for at least the past
month since her recent cardioversion. She apparently has been noncompliant with amiodarone over the past 3 to 4 days in part due to this nausea�interestingly nausea seems to improve off of amiodarone. She was referred for evaluation of
cardioversion versus admission if indicated.
Past History
Past History
ED Past Medical History: Arrthythmia (PAF, s/p AV replacement April 2016), CHF, GERD, Hypercholesterolemia, Valvular disease (, s/p AVR) and Other ( pneumonia, hiatal hernia, arthritis, cataracts, glaucoma, macular degeneration, shingles, skin
cancer, small bowel obstruction)
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
surgery)
Patient has exhibited threatening behavior?: No
Social History
Tobacco: Non-smoker
Alcohol: None
Drug: None
Personal:
Living: alone
Employment: Retired
Family History
Family History: Other (Nonsignificant)
Review of Systems
Review of Systems
All Other Systems: ROS reviewed and negative except as documented in HPI and ROS
Constitutional: Denies fever
Respiratory: Denies cough or trouble breathing
Cardiac: Denies chest pain, diaphoresis or palpitations
ABD/GI: Denies abdominal pain, nausea or vomiting
: Denies flank pain
Musculoskeletal: Denies neck pain or back pain
Neurological: Reports dizzy; Denies headache, weakness or numbness
Phy Exam
Physical Exam
Physical Exam:
General: Awake, alert, oriented x3; cachectic; no acute distress
Head: Normocephalic, atraumatic
Eyes: Conjunctiva normal
Throat: Airway intact, handling secretions
Neck: Trachea midline, supple without meningismus
Lungs: Clear to auscultation bilaterally, no wheezing, rales, rhonchi
Heart: Tachycardia with irregularly irregular rhythm, no murmurs, gallops, or rubs
Abd: Soft, non distended, nontender
Neuro: Cranial nerves grossly intact, speech fluid
Skin: no rash
Extremities: Warm and well-perfused
Scores
Heart Failure Risk
Heart Failure Risk Score: Not Applicable
Heart Score for Chest Pain Patients
STEMI patient?: Not applicable
Withdrawal Assessment of Alcohol
Withdrawal Assessment Completed?: Not applicable
Course
Orders/Labs/Results
Orders:
Orders
01/27/24 15:18
Electrocardiogram (*1) Urgent
Reason for Study: Atrial Fibrillation
EKG- Treatment ONCE
01/27/24 16:12
Basic Metabolic Panel Urgent
Complete Blood Count/With Diff Urgent
Troponin I Urgent
01/27/24 17:23
Free T4 Urgent
TSH Reflex To Free T4 Urgent
01/27/24 18:47
Propofol [Diprivan] 20 ml .ROUTE .STK-MED
01/27/24 19:39
Electrocardiogram (*1) Urgent
Reason for Study: Atrial Fibrillation
EKG- Treatment ONCE
01/27/24 19:46
Potassium Urgent
Abnormal Lab Results
01/27/24 01/27/24
16:12 17:23
WBC 4.3 L 10^3/uL
(4.8-10.8)
RBC 3.83 L 10^6/uL
(4.20-5.40)
Hgb 11.8 L g/dL
(12.0-16.0)
Hct 35.3 L %
(37.0-47.0)
RDW 16.0 H %
(11.5-14.5)
Absolute Lymphs (auto) 0.8 L 10^3/uL
(1.2-3.4)
Lymphocytes % 17.7 L %
(20.5-51.1)
Sodium 131 L mmol/L
(135-145)
BUN 26 H mg/dl
(7-17)
Creatinine 0.5 L mg/dL
(0.6-1.0)
TSH (Reflex) 17.70 H uIU/ml
(0.47-4.68)
01/27/24 16:12
Vital Signs
Initial and Last Documented VS:
Initial Vital Signs
Temp Pulse Resp BP Pulse Ox
36.9 C 118 18 81/53 98
01/27/24 15:15 01/27/24 15:15 01/27/24 15:15 01/27/24 15:15 01/27/24 15:15
Last Documented Vital Signs
Temp Pulse Resp BP Pulse Ox
37.1 C 74 18 94/61 98
01/27/24 19:55 01/27/24 19:55 01/27/24 19:55 01/27/24 19:55 01/27/24 19:55
Procedures
Cardioversion
Indication:: Afib
Performed by:: Rolando Galarza MD
Synchronized?: Yes
Energy Used: 150 joules
Number of attempts: 1
Successful?: Yes
Complications: none
ASA Risk Score: Class III
Any reaction or bad outcome to prior sedation/anesthesia?: No history of a reaction
Sedation level to be attained: moderate
Chart and allergies reviewed: Yes
Patient reassessed prior to sedation: Yes
Time out completed at (validating right patient & procedure): 16:35
History of difficult intubation: No
Airway free of obstruction: Yes
Patient has a gag reflex: Yes
Patient is able to open mouth: Yes
Patient has no dentures: No (removed prior to procedure)
Patient has no loose teeth: Yes
Medication administered by Provider during Moderate Sedation: IV Propofol (mg)
Total dose administered: 30
Time drug administered: 16:35
Start Time: 16:35
Stop Time: 16:45
MDM/Problems Addressed
Differential Diagnosis Includes:
A-fib
MDM/Problems Addressed:
88-year-old female presents to the emergency room sent over by cardiology with A-fib with RVR�had dizziness this morning and found to be in A-fib with RVR, send to ED for consideration of cardioversion. Somewhat soft blood pressure on my initial
assessment 90s over 60s with tachycardia, EKG confirms A-fib with RVR. Vital signs otherwise normal. Physical exam as above. Plan to check basic labs. She is on Eliquis and compliant, message sent to cardiology to confirm patient is okay for
cardioversion with Eliquis at reduced dose (reduced dosing for age and low BMI). Patient is eager to undergo procedure. Continue to monitor closely reassess after the above.
UPDATE
Reviewed cardiology note as in HPI and also discussed with cardiology�patient has also had some chronic nausea, noncompliance with amiodarone and weight loss. I had a long discussion with the patient�she feels her primary issue is lightheadedness
and A-fib at this point in time and prefers to undergo cardioversion in the emergency room and discharged home if successful rather than admission to the hospital once again. Using shared decision making we will attempt cardioversion in the
emergency room and if successful will try and discharge with close outpatient follow-up of her now chronic nausea and weight loss to avoid recurrent hospitalization.

Initial labs reviewed: CBC shows marginal anemia otherwise unremarkable, CMP no clinically significant abnormalities. TSH was elevated but free T4 normal. Patient still agreeable to undergo cardioversion, will proceed with procedure.
Patient successfully cardioverted as documented procedure note. Her dizziness did still improve but I had a long discussion with patient and she is now less enthusiastic about going home. She is very concerned about her ability to take her meds
given her recent vomiting that she was told to restart amiodarone but she says that she believes this may be causing her nausea and vomiting. Furthermore although her dizziness did improve with cardioversion she still feels mildly unsteady on her
feet and she currently lives by herself in the community. Will plan to admit for monitoring overnight and further workup of her nausea/vomiting and failure to thrive with weight loss. Discussed with hospitalist for admission.
Chronic conditions affecting care:
A-fib, CHF
*Pulse Oximetry
Patient hypoxic: no
*EKG
Interpreted by ED Provider?: Yes
Comparison EKG: no changes
Heart Rate: 110
Rate: tachycardiac
Rhythm: a-fib
[place]: right axis deviation
Interval: normal interval
Ischemia: non-specific ST changes
*Critical Care Note
Total Time (30-74mins, 75-104mins- exclusive of procedures): 30
comment:
Critical care statement: A total of 30 minutes of critical care time was provided for this patient. This includes management of unstable vital signs, evaluation of the patient at bedside, frequent reassessment, discussion with
consultants/hospitalist, and review of pertinent medical records. This time was separate from time utilized to perform any aforementioned documented procedures
Data Reviewed
Review of Other/Old Records Reveals: Labs, Records and Progress Notes (Reviewed office note from cardiology)
Source: patient, records and other (Friend)
Patient Management
Discussion with other providers: Hospitalist (Discussed with hospitalist) and Outpatient Dietitian (Discussed with cardiology)
Escalation/DeEscalation of care consider admission/obs:
Admission indicated
ED Attending Note
-
Portions of this chart may have been created with voice recognition software.� Occasional wrong word or��sound alike� substitutions may have occurred due to the inherent limitations of voice recognition software.
Discharge Plan
Departure
Patient Disposition: Admit
Date of Disposition: 01/27/24
Time of Disposition: 20:05
Admit to doctor: Gerardo
Presentation/result/management discussed w/ accepting MD/DO: Hospitalist
Patient with high blood pressure during this ER visit?: No
Discharge Problem:
Atrial fibrillation status post cardioversion, Adult failure to thrive, Nausea
Instructions: Atrial Fibrillation (DC), MODERATE SEDATION ADULT
Prescriptions:
No Action
propranolol 10 MG tablet
5 mg PO DAILY
lorazepam 1 MG tablet
1 mg PO HS
Patient Comments:
12/27/2023: LAST FILLED 10/15/23, 270 TABS FOR 30 DAYS FROM [employer] [facility]
Lumigan 1 DROP drops
1 drp BOTH EYES HS
Saccharomyces boulardii [Florastor] 250 mg Capsule
250 mg PO DAILY
furosemide 40 MG tablet
40 mg PO DAILY
zinc 50 mg Tablet
50 mg PO DAILY
cyanocobalamin (vitamin B-12) 1,000 mcg Capsule
1,000 mcg PO DAILY
amiodarone [Pacerone] 200 mg tablet
200 mg PO DAILY@0600
cholecalciferol (vitamin D3) [Vitamin D3] 25 mcg (1,000 unit) Tablet
25 mcg PO DAILY
potassium chloride 20 mEq tablet extended release
20 meq PO DAILY
omeprazole 20 mg capsule,delayed release(DR/EC)
40 mg PO DAILY
ondansetron 4 mg tablet,disintegrating
4 mg PO Q8H PRN (Reason: nausea/vomiting)
levothyroxine [Synthroid] 50 mcg tablet
50 mcg PO DAILY@0600
Eliquis 2.5 mg Tablet
2.5 mg PO BID Qty: 60 0RF
Referrals:
Quintin Pastrana MD [Active] - Call in 1-3 days for appt
Activity Restrictions/Additional Instructions:
Thank you for visiting the Emergency Department at [facility].
1. Please schedule a follow up appointment as directed. Call first thing tomorrow morning to make an appointment.
2. If indicated, please take your medications as instructed and indicated on discharge paperwork.
3. If any of your symptoms do not improve, or persist, or become more severe within 6-12 hours, please return to the emergency department for further care.
4. Please return to the emergency department if you develop a headache, neck pain/stiffness, fever greater than 100.4F, chest pain, shortness of breath, persistent nausea, vomiting, slurred speech, difficulty walking, numbness/tingling, weakness,
signs of infection or any other symptoms that are worrisome to you.
Please call [phone] if you have any questions.
Interventions
Interventions:
*Risk Screen - Suicide Last Done: 01/27/24 15:15
*General Assessment Last Done: 01/27/24 15:15
*Neglect/Abuse Screening Last Done: 01/27/24 15:15
ED- Fall Risk Assessment Last Done: 01/27/24 15:53
*ED COVID-19 Vaccine History Last Done: 01/27/24 15:15
ED- Cardiac Assessment Last Done: 01/27/24 15:53
ED- Pulmonary Assessment Last Done: 01/27/24 15:53
Discharge Date and Time
Print Language: AMERICAN
[2024-01-27 16:30] LABS: % Basophils 0.2 % (0-2); % Immature Granulocytes 0.5 % (0-0.5); % Lymphocytes 17.7 % (20.5-51.1); % Monocytes 8.4 % (1.7-9.3); % Neutrophils 73.2 % (42.2-75.2); Absolute Lymphocytes 0.8 10^3/uL (1.2-3.4); Absolute Monocytes 0.4 10^3/uL (0.1-0.6); Absolute Neutrophils 3.1 10^3/uL (1.4-6.5); Hematocrit 35.3 % (37.0-47.0); Hemoglobin 11.8 g/dL (12.0-16.0); Mean Corp Hgb Conc. 33.4 g/dL (33.0-37.0); Mean Corpuscular Hgb 30.8 pg (27.0-31.0); Mean Corpuscular Volume 92.2 fL (81.0-99.0); Mean Platelet Volume 9.7 fL (7.4-10.4); Nucleated Red Blood Cells % 0 %; Platelet Count 224 10^3/uL (130-400); Red Blood Cell Count 3.83 10^6/uL (4.20-5.40); White Blood Cell Count 4.3 10^3/uL (4.8-10.8)
[2024-01-27 16:49] LABS: Troponin I 0.018 ng/ml
[2024-01-27 17:31] LABS: Blood Urea Nitrogen 26 mg/dl (7-17); Calcium 8.4 mg/dl (8.4-10.2); Carbon Dioxide 26 mmol/L (22-30); Chloride 100 mmol/L (98-107); Estimated Creatinine Clearance 41 ml/min; Glucose 97 mg/dl (70-99); Sodium 131 mmol/L (135-145); eGFR > 60.00
[2024-01-27 19:16] LABS: Free T4 1.61 ng/dl (0.78-2.19)
--- NOTE | 2024-01-27 20:38 | HPS.HSE ---
Family Physician
-
Family Physician: Enrrique Montana
Chief Complaint
-
[place], Fast AF per apple watch
History of Present Illness
88M HX Prx AF, on chr Amiodarone and Eliquis, chronic nausea, noncompliance with amiodarone seen at ER post CV [place] Fast AF with dizziness/lightheadedness , hypotensive;
Retrospective HX from ER;
Acute onset of dizziness - felt improved s/p CV
Apple watch reports in Fast AF
Reports noncompliant with amiodarone last 3 to 4 days due to nausea also which is chronic
Compliance with Eliquis including this morning
HX previous CVs - most recently 12/31/23
ROS:
No chest pain
no SoB
Medical History
Past Medical History
Past Medical History: Reports Other
Additional Past Medical History:
Paroxysmal Atrial Fibrillation
Chronic Diastolic Heart Failure
Aortic Stenosis s/p Bioprosthetic Aortic Valve Replacement
Hypothyroidism
GERD
Ocular Migraine
Anxiety
Past Surgical History: Reports Other
Additional Past Surgical History:
Small Bowel Resection
Appendectomy
Hysterectomy
Melanoma Removal
Parotid Tumor Removal
Right Meniscus Repair
Social History
Tobacco: Non-smoker
Alcohol: None
Family History
Family History: Not pertinent
Allergies / Home Medications
Allergies reflects when Allergies were last updated in [facility].
Home Medications with original date entered in [facility]
Allergy/Medication List:
Allergies
Allergy/AdvReac Type Severity Reaction Status Date / Time
amlodipine Allergy lower Verified 04/03/23 14:41
extremity
edema
cefazolin sodium [From [facility]] Allergy trachea Verified 04/03/23 14:41
swelling
Home Medications
lorazepam 1 mg tablet 1 mg PO HS Sleep 01/03/21
propranolol 10 mg tablet 5 mg PO DAILY ocular migraines 01/03/21
bimatoprost 0.01 % eye drops (Lumigan) 1 drp BOTH EYES HS Eye condition 09/12/21
Saccharomyces boulardii 250 mg capsule (Florastor) 250 mg PO DAILY Supplement 10/11/22
furosemide 40 mg tablet 40 mg PO DAILY Fluid retention/Swelling 10/11/22
amiodarone 200 mg tablet (Pacerone) 100 mg PO BID Arrhythmia 10/31/22
cyanocobalamin (vitamin B-12) 1,000 mcg capsule 1,000 mcg PO DAILY Supplement 10/31/22
zinc 50 mg tablet 50 mg PO DAILY Supplement 10/31/22
cholecalciferol (vitamin D3) 25 mcg (1,000 unit) tablet (Vitamin D3) 25 mcg PO DAILY Supplement 06/11/23
potassium chloride 20 mEq tablet,extended release 20 meq PO DAILY Electrolyte Repletion 06/11/23
levothyroxine 50 mcg tablet (Synthroid) 50 mcg PO DAILY@0600 12/27/23
omeprazole 20 mg capsule,delayed release 20 mg PO DAILY Gastrointestinal Issue 12/27/23
ondansetron 4 mg disintegrating tablet 4 mg PO Q8H PRN nausea/vomiting 12/27/23
apixaban 2.5 mg tablet (Eliquis) 2.5 mg PO BID #60 tabs 01/01/24
Review of Systems
-
Constitutional: Reports Weight Loss and Fatigue
EENT: Reports No Symptoms
Respiratory: Reports No Symptoms
Cardiac: Reports See HPI; Denies Chest Pain, Diaphoresis, Palpitations or Syncope
Abdomen/GI: Reports No Symptoms
: Reports No Symptoms
Musculoskeletal: Reports No Symptoms
Skin: Reports No Symptoms
Neurological: Reports No Symptoms
Endocrine: Reports No Symptoms
Hematologic/Lymphatic: Reports No Symptoms
Psych: Reports No Symptoms
Physical Exam
Vital Signs
Vital Signs
Temp Pulse Resp BP Pulse Ox
98.7 F 77 18 94/58 97
01/27/24 19:55 01/27/24 20:05 01/27/24 20:05 01/27/24 20:05 01/27/24 20:05
Physical Exam
General: No Apparent Distress, Comfortable, Conversant and Other (BMI 15 ); No Respiratory Distress
HEENT: NormoCephalic and Moist mucous membranes
Respiratory: Clear; No Wheezes, Rales or Rhonchi
Cardiac: S1/S2, Regular Rhythm (post cardioversion ) and Other
Breast: Deferred by me
GI: Soft, Non Tender, Non Distended and Normal Bowel Sounds
Rectal: Deferred by Provider
Genito-urinary: Deferred by me
Musculoskeletal: No Edema
Skin: Warm and Dry
Neuro: AO x 3
Psych: Calm
Laboratory Results
-
01/27/24 16:12
Laboratory Results
Total Bilirubin Cancelled 01/27/24 16:12
AST Cancelled 01/27/24 16:12
ALT Cancelled 01/27/24 16:12
Alkaline Phosphatase Cancelled 01/27/24 16:12
Troponin I 0.018 ng/ml 01/27/24 16:12
Data Reviewed
-
Lab Data: Labs Reviewed by me
Old Records: Reviewed
Impression/Plan
-
Reviewed VS: afebrile HR 110 --> 77 BP 80/53 ---> 95/60
Wt 42.3 kg ( 01/01/24) ---> 39.4 kg today Loss 2.9 kg over 1 yr
Data
WCC 4.3
hgb 11.8 - b/ 11s
Na 131 - bl 130
Repeat K pending
BUN 26
Cr 0.5
TPN 0.018
TSH 17.7
01/27/24 @ 1518
ATRIAL FLUTTER WITH VARIABLE A-V BLOCK
RIGHTWARD AXIS
NONSPECIFIC ST AND T WAVE ABNORMALITY
ABNORMAL ECG
WHEN COMPARED WITH ECG OF 27-DEC-2023 20:17,
ATRIAL FLUTTER HAS REPLACED ATRIAL FIBRILLATION
01/27/24 @ 1939 EKG s/p CV
NORMAL SINUS RHYTHM
RIGHTWARD AXIS
NONSPECIFIC T WAVE ABNORMALITY
PROLONGED QT
ABNORMAL ECG
WHEN COMPARED WITH ECG OF 27-JAN-2024 15:23,
SINUS RHYTHM HAS REPLACED ATRIAL FLUTTER
VENT. RATE HAS DECREASED BY 37 BPM
Last hospitalist admission: 12/27/23- 01/01/24 DC DXs:
Recurrence of paroxysmal atrial fibrillation
Intermittent nausea and vomiting 2/2 enteritis
Hyponatremia
ASSESSMENT & PLAN
Symptomatic recurrent fast AF with hypotension on chr eliquis and compliance with amiodarone
Recurrence of Paroxysmal Afib due to noncompliance with Amiodarone for last 3-4 days to chr nausea flare
Successfully cardioverted to NSR at ER today
Marginal hypotension
- felt improved s/p CV
- cont. Eliquis
- Resume amiodarone
- DCA card consult cardiologyy
Chronic nausea, noncompliance with amiodarone and weight loss.
Dizziness did improve with cardioversion
Mildly unsteady on her feet and she currently lives by herself in the community
Generalized weakness
- PT/OT
- Fall precaution
Chronic HFpEF: stable
- HX Aortic Stenosis s/p Bioprosthetic Aortic Valve Replacement
- Restart Lasix as recommended by cardiology
- Monitor IOs and daily Weights
Cachexia unclear etiology
BMI 15 c/w protein calorie malnutrition
- Regular diet
- Vegetable Sorter consult
Other problems:
Hypothyroidism: cont home dose Levoxyl
GERD: cont PPI
HX Ocular Migraines: cont propranolol
DVT Px: Eliquis
Code: Full per patient
IP TLM
[2024-01-27 21:40] LABS: Potassium 3.3 mmol/L (3.5-5.1)
[2024-01-28] VITALS (8 sets, daily range): BP systolic 105–125; BP diastolic 50–64; PULSE 93; O2SAT 93; BMI 15.8; BMI 15.3
--- NOTE | 2024-01-28 00:15 | PTCARENOTE ---
Pt arrived from ED via wheelchair, oob x1, steady gait. aaox3, cooperative. nsr on monitor. pox 98% on RA. denies dizziness or sob. oriented to room. call cuellar within reach.
[2024-01-28] MEDS: LUMIGAN 0.01% 1 DROP BOTH EYES (00:42)
[2024-01-28] MEDS: ATIVAN PO (03:18)
[2024-01-28] MEDS: SYNTHROID 50 MCG PO (06:07)
[2024-01-28 07:25] LABS: Hematocrit 30.7 % (37.0-47.0); Hemoglobin 10.3 g/dL (12.0-16.0); Mean Corp Hgb Conc. 33.6 g/dL (33.0-37.0); Mean Corpuscular Hgb 31.1 pg (27.0-31.0); Mean Corpuscular Volume 92.7 fL (81.0-99.0); Mean Platelet Volume 10.4 fL (7.4-10.4); Platelet Count 201 10^3/uL (130-400); Red Blood Cell Count 3.31 10^6/uL (4.20-5.40); Red Cell Dist. Width 16.1 % (11.5-14.5); White Blood Cell Count 4.5 10^3/uL (4.8-10.8)
[2024-01-28 07:56] LABS: Blood Urea Nitrogen 29 mg/dl (7-17); Calcium 8.7 mg/dl (8.4-10.2); Carbon Dioxide 30 mmol/L (22-30); Chloride 98 mmol/L (98-107); Estimated Creatinine Clearance 41 ml/min; Glucose 90 mg/dl (70-99); Magnesium 1.8 mg/dl (1.6-2.3); Potassium 3.4 mmol/L (3.5-5.1); Sodium 131 mmol/L (135-145); eGFR > 60.00
[2024-01-28] MEDS: INDERAL 5 MG PO (08:54)
[2024-01-28] MEDS: PROTONIX 40 MG PO (08:54)
[2024-01-28] MEDS: ELIQUIS 2.5 MG PO ×2 (08:55→21:07)
[2024-01-28] MEDS: LASIX 40 MG PO (08:55)
[2024-01-28] MEDS: KCL 20 MEQ PO ×2 (08:55→10:34)
--- NOTE | 2024-01-28 09:36 | W.PN.HOSP.TC ---
Today's Communication/Plan
-
gluten free diet
F/U further cardiology rcs
Assessment / Plan
Assessment / Plan
Ms. Radha Delacruz is a 88 yo woman with hx afib s/p cardioversion (most recently 12/31/23) presented to cardiology office with afib with RVR sent to the ER for cardioversion. Patient has been non-compliant with amio 2/2 nausea; experience weight
loss, nausea and poor appetite over past month.
ASSESSMENT & PLAN
Symptomatic recurrent fast AF with hypotension on chr eliquis and compliance with amiodarone
Recurrence of Paroxysmal Afib due to noncompliance with Amiodarone for last 3-4 days to chr nausea flare
Successfully cardioverted to NSR at ER today
Marginal hypotension
- felt improved s/p CV ; remains in sinus this AM
- cont. Eliquis
- F/U cards recs on amio
- DCA card consult cardiologyy
Chronic nausea, noncompliance with amiodarone and weight loss.
-EGD 12/25/23 with e/o celiac disease
-patient has not been eating a gluten free diet at home - further instructions given on importance
Dizziness did improve with cardioversion
Mildly unsteady on her feet and she currently lives by herself in the community
Generalized weakness
- PT/OT
- Fall precaution
Chronic HFpEF: stable
- HX Aortic Stenosis s/p Bioprosthetic Aortic Valve Replacement
- Restart Lasix as recommended by cardiology
- Monitor IOs and daily Weights
Cachexia unclear etiology
BMI 15 c/w protein calorie malnutrition
- Regular diet
- Data Keyer consult
Other problems:
Hypothyroidism: cont home dose Levoxyl
GERD: cont PPI
HX Ocular Migraines: cont propranolol
DVT Px: Eliquis
Code: Full per patient
IP TLM
Anticipated Discharge: 24 - 48 hours
Subjective/Interval History
-
Date of Service: January 28, 2024
ate breakfast this morning
denies chest pain or shortness of breath
remains in sinus rhythm
Objective Data
-
Labs:
Laboratory Results
01/27/24 01/28/24
21:23 06:45
WBC 4.5 L
Hgb 10.3 L
Hct 30.7 L
Plt Count 201
Sodium 131 L
Potassium 3.3 L 3.4 L
Chloride 98
Carbon Dioxide 30
BUN 29 H
Creatinine 0.6
Glucose 90
Calcium 8.7
Vital Signs:
Vital Signs
Temp Pulse Resp BP Pulse Ox
97.8 F 77 18 113/64 98
01/28/24 08:07 01/28/24 08:07 01/28/24 08:07 01/28/24 08:07 01/28/24 08:07
Review of Systems
-
History Source: Patient
All other systems: Reviewed and negative
Physical Exam
-
General: No Apparent Distress
HEENT: PERRLA
Respiratory: Clear to Auscultation
Cardiac: S1/S2 and Murmur; Negative JVD
GI: Soft and Nontender
Skin: Warm and Dry; Negative Rash
Neuro: AO x 3
Psych: Calm
Data Reviewed
-
Diagnostic Radiology: Report Reviewed by me
Labs: Labs Reviewed by me
--- NOTE | 2024-01-28 10:25 | VNURNOTE ---
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
--- NOTE | 2024-01-28 11:44 | CON.CAR ---
Addendum entered and electronically signed by Jaret Ta MD 01/28/24 14:28:
I saw and examined the patient.
The CADMIUM LIQUOR MAKER or PA's note was reviewed and I agree with the note.
Comment: General: Well developed, well nourished in NAD.
Neck: Supple, no JVD, HJR, carotids +2 B/L, no bruits bilaterally.
Heart: Non displaced PMI, RRR, 2/6 apical systolic murmur, No S3, S4, no rubs.
Lungs: Scattered rhonchi
Extremities: No clubbing, cyanosis or edema bilaterally.
Neuro: Grossly nonfocal, awake, alert and oriented x3.
Radha has a history of paroxysmal atrial fibrillation on chronic amiodarone and Eliquis status post RAUL/cardioversion 12/31/2023, chronic diastolic CHF, moderate to severe MR/MS, status post bioprosthetic AVR, hypertension, hypothyroidism. She
presents with severe nausea and weight loss. She felt it was due to amiodarone and held this medicine for the last 3 to 4 days. She was seen in the office and found to be A-fib and sent to the ER. Cardiology is consulted for management of
amiodarone. Of note she is sinus rhythm at present. Primary service and GI feel symptoms are related to poor compliance with celiac diet. Will change amiodarone to 100 mg p.o. twice daily. She remains at high risk for recurrent A-fib but is in
sinus rhythm at present. Will sign off, call with questions. Discussed with primary service
Original Note:
Consultation
Consultation Request
Date/Time Consultation Performed: 01/28/24
Requesting Provider: Dr. Askew
Performing Provider: Sol Begum PA-C for Dr. Ta
Reason for Consultation: afib
Medical History
-
Chief Complaint: nausea
History of Present Illness:
Patient is an 88 yo F well known to our service with PMH of paroxysmal atrial fibrillation on chronic amiodarone and eliquis, mod to severe MR/MS, chronic HFpEF, bioprosthetic AVR, who was recently diagnosed with celiac disease earlier this year.
She has not been following a gluten free diet. She reports she has been having issues with significant nausea. She has been losing weight. She thought this was due to her amiodarone so has held it on her own the last 3-4 days. She was cardioverted
12/31/23. Yesterday she states she slept well, however stated when she stood up she immediately knew she was in afib due to significant lightheadedness. She was seen in office yesterday, and confirmed to be in afib with RVR and referred to ER. She
historically has not tolerated afib well due to her MS/MR. She is not felt to be a candidate for mitraclip. Cardiology consulted for evaluation.
PMH:
Paroxysmal atrial fibrillation
Chronic amiodarone therapy
Chronic OAC with eliquis
s/p RAUL/CV 12/31/23
Chronic HFpEF
Moderate to severe MR/MS
s/p bioprosthetic AVR in 2016
Hypertension
Macular degeneration, wet
Hypothyroidism
GERD
Ocular migraines
Celiac disease, diagnosed 12/25/23 by EGD
Past Medical History
Past Medical History: Other (in HPI)
Social History
Tobacco: Non-Smoker
Alcohol: None
Personal:
Employment: Retired
Allergies / Home Medications
Allergy/AdvReac Type Severity Reaction Status Date / Time
amlodipine Allergy lower Verified 04/03/23 14:41
extremity
edema
cefazolin sodium [From [facility]] Allergy trachea Verified 04/03/23 14:41
swelling
�Medication �Instructions �Recorded �Confirmed �Type
lorazepam 1 mg tablet 1 mg PO HS Sleep 01/03/21 01/27/24 History
propranolol 10 mg tablet 5 mg PO DAILY ocular migraines 01/03/21 01/27/24 History
bimatoprost 0.01 % eye drops 1 drp BOTH EYES HS Eye condition 09/12/21 01/27/24 History
(Lumigan)
Saccharomyces boulardii 250 mg 250 mg PO DAILY Supplement 10/11/22 01/27/24 History
capsule (Florastor)
furosemide 40 mg tablet 40 mg PO DAILY Fluid 10/11/22 01/27/24 History
retention/Swelling
amiodarone 200 mg tablet (Pacerone) 100 mg PO BID Arrhythmia 10/31/22 01/27/24 History
cyanocobalamin (vitamin B-12) 1,000 mcg PO DAILY Supplement 10/31/22 01/27/24 History
1,000 mcg capsule
zinc 50 mg tablet 50 mg PO DAILY Supplement 10/31/22 01/27/24 History
cholecalciferol (vitamin D3) 25 25 mcg PO DAILY Supplement 06/11/23 01/27/24 History
mcg (1,000 unit) tablet (Vitamin
D3)
potassium chloride 20 mEq 20 meq PO DAILY Electrolyte 06/11/23 01/27/24 History
tablet,extended release Repletion
levothyroxine 50 mcg tablet 50 mcg PO DAILY@0600 12/27/23 01/27/24 History
(Synthroid)
omeprazole 20 mg capsule,delayed 20 mg PO DAILY Gastrointestinal 12/27/23 01/27/24 History
release Issue
ondansetron 4 mg disintegrating 4 mg PO Q8H PRN nausea/vomiting 12/27/23 01/27/24 History
tablet
apixaban 2.5 mg tablet (Eliquis) 2.5 mg PO BID #60 tabs 01/01/24 01/27/24 Rx
Review of Systems
-
History Source: Patient
All other systems: Negative unless noted
Physical Exam
Vital Signs
Temp Pulse Resp BP Pulse Ox
97.8 F 77 18 113/64 98
01/28/24 08:07 01/28/24 08:07 01/28/24 08:07 01/28/24 08:07 01/28/24 08:10
Lab Results
01/28/24 06:45
01/28/24 06:45
Troponin I 0.018 ng/ml 01/27/24 16:12
Physical Exam
General: No Apparent Distress, Comfortable and Other (frail appearing)
HEENT: Normocephalic, Anicteric and Moist Mucous Membranes
Respiratory: Clear and Non Labored Respirations
Cardiac: S1/S2, Regular Rhythm and Murmur
GI: Soft, Non Distended and Normal Bowel Sounds
Musculoskeletal: No Clubbing, No Cyanosis and No Edema
Skin: Warm and Dry
Neuro: AO x 3
Impression / Plan
-
Primary Refrigerator Repairman: Dr. CLEMENCIA Rhodes
Assessment:
Presentation with nausea
Recurrent, symptomatic paroxysmal atrial fibrillation
Chronic amiodarone therapy
Chronic OAC with eliquis
s/p RAUL/CV 12/31/23
Chronic HFpEF
Moderate to severe MR/MS
s/p bioprosthetic AVR in 2016
Hypertension
Macular degeneration, wet
Hypothyroidism
GERD
Ocular migraines
Cachexia/protein calorie malnutrition
Celiac disease, diagnosed 12/25/23 by EGD
Echo 07/27/2022: EF 60 to 65%, mild concentric LVH, no regional wall motion abnormality seen, stage II diastolic dysfunction, densely thickened mitral valve leaflets with MAC, mild MS with mean gradient of 5, moderate to severe MR, well-seated
bioprosthetic aortic valve with peak/mean gradients 28/16 mmHg, mild TR, PAP 46 mmHg
Echo 12/31/23: EF 60%, LVH, severe MR with mod MS. Mean gr 4.
Plan:
-Patient was seen in office yesterday and complained of nausea and was also noted to be back in atrial fibrillation. S/p recent CV 12/30. She was referred to the emergency room and subsequently admitted.
-She was diagnosed with celiac disease by EGD 12/25/23, however has not been following a celiac diet. This was encouraged as could be contributing to her symptoms. dietary consult
-Fortunately she spontaneously converted back to sinus rhythm. We have discussed amiodarone again with patient and she is willing to continue the medication. We will adjust dosing from 200 mg daily to 100 mg twice daily to see if this is better
tolerated.
-Historically she has not tolerated being in atrial fibrillation given her MR/MS. She has limited other options for rate/rhythm control
-Continue Eliquis 2.5 mg twice daily
-She does not appear to be volume overloaded on examination. Continue outpatient p.o. Lasix 40 mg daily
-Recent echocardiogram from 12/2023 with results as above
-Discussed with hospitalist
Data Reviewed
-
EKG: Tracing Personally Visualized and interpreted
Medical Tests (Nuc Med, Echo etc): Report Reviewed by me
Labs: Labs Reviewed by me
Old Records: Reviewed
[2024-01-28] MEDS: PACERONE 100 MG PO ×2 (12:07→21:07)
--- NOTE | 2024-01-28 16:50 | CM ---
Alert awake oriented patient who lives alone she has a story home with 4 steps to enter .She has a son Espinoza and neighbors that are supportive.
She is independent in driving and in all activities of daily living.She uses a walker. Offered VN she requested [facility] resumption.
No adaptive devices
HAs [facility]/ No SNF
Pharmacy [facility]
PCP Dr Jameson
PLAN Home resume [facility]
[2024-01-28] MEDS: SENOKOT-S 1 TABLET PO (21:09)
[2024-01-28] MEDS: ATIVAN 1 MG PO (23:32)
[2024-01-28] MEDS: LUMIGAN 0.01% BOTH EYES (23:55)
[2024-01-29 03:25] VITALS: BP 132/64
--- NOTE | 2024-01-29 04:53 | DOWNTIME ---
There was a [employer] Client Mission Worker Downtime on 01/29/2024 from 0100 to 01/29/2024 at 0439. Downtime documentation of patient's care, including medication administrations, has been reconciled in the electronic record per guidelines. Refer to the
patient's paper chart under the miscellaneous tab to see printed paper medication records and downtime forms.
[2024-01-29] MEDS: SYNTHROID 50 MCG PO (06:10)
[2024-01-29 06:48] VITALS: BMI 15.6
[2024-01-29 07:25] VITALS: BP 115/60
--- NOTE | 2024-01-29 08:40 | PN.CDI ---
CDI
- -
CDI:
Physician Documentation Request
Admit Date: 01/27/24 22:19
Dear Doctor Azar,
Patient admitted with symptomatic recurrent fast AF.
01/27 PN, 'Cachexia unclear etiology ...BMI 15 c/w protein calorie malnutrition.'
01/27 Nutrition note, 'Pt meets criteria for severe protein calorie malnutrition of chronic illness with >10% wt loss x 6mo, >5% wt loss x 1mo, severe loss subcutaneous fat (orbital, tricep), severe loss muscle (temporal, buccal, clavicle).'
Please provide in your progress note the severity of the malnutrition:
Severe protein calorie malnutrition
Other (please specify)
[place] Criteria ([facility] Hospitalist 2017)
2 or more criteria must be present for either
non severe or severe malnutrition
Note that the criteria differs related to the
presence of an acute or chronic illness
Chronic Illness
Energy Intake Non Severe: <75% for >1 month
Severe: <75% for >1 month
Weight Loss Non Severe: 5% over 1 month
7.5% over 3 months
10% over 6 months
20% over 1 year
Severe: >5% over 1 month
>7.5% over 3 months
>10% over 6 months
>20% over 1 year
Body Fat Non Severe: Mild Loss
Severe: Severe Loss
Muscle Mass Non Severe: Mild Loss
Severe: Severe Loss
Fluid Accumulation Non Severe: Mild Accumulation
Severe: Moderate to severe
accumulation
Reduced Link Trainer Maintenance Worker Strength Non Severe: N/A
Severe: Measurably reduced
Use of terms such as suspected, likely, concern for, or probable (associated with a specific diagnosis that is being evaluated, monitored, or treated as if it exists) are acceptable and can be coded in the inpatient setting, when documented at the
time of discharge.
Thank you,
Molly GARCIA,RN,CCDS
CDI Specialist
Available via tiger text
Please use your independent medical judgment in providing your response.
[2024-01-29] MEDS: PROTONIX 40 MG PO (08:42)
[2024-01-29] MEDS: ELIQUIS 2.5 MG PO (08:43)
[2024-01-29] MEDS: INDERAL 5 MG PO (08:43)
[2024-01-29] MEDS: LASIX 40 MG PO (08:43)
[2024-01-29] MEDS: PACERONE 100 MG PO (08:43)
[2024-01-29] MEDS: KCL 20 MEQ PO (08:43)
[2024-01-29 09:12] LABS: Blood Urea Nitrogen 26 mg/dl (7-17); Calcium 8.7 mg/dl (8.4-10.2); Carbon Dioxide 32 mmol/L (22-30); Chloride 92 mmol/L (98-107); Estimated Creatinine Clearance 36 ml/min; Glucose 83 mg/dl (70-99); Magnesium 1.8 mg/dl (1.6-2.3); Potassium 3.9 mmol/L (3.5-5.1); Sodium 131 mmol/L (135-145); eGFR > 60.00
[2024-01-29 11:12] VITALS: BP 114/56
--- NOTE | 2024-01-29 12:19 | W.PN.HOSP.TC ---
Addendum entered and electronically signed by Kenyetta Askew MD 01/30/24 14:24:
severe protein calorie malnutrition of chronic illness
-appreciate dietary
Original Note:
Today's Communication/Plan
-
Ok for DC today
Assessment / Plan
Assessment / Plan
Ms. Radha Delacruz is a 88 yo woman with hx afib s/p cardioversion (most recently 12/31/23) presented to cardiology office with afib with RVR sent to the ER for cardioversion. Patient has been non-compliant with amio 2/2 nausea; experience weight
loss, nausea and poor appetite over past month.
ASSESSMENT & PLAN
Symptomatic recurrent fast AF with hypotension on chr eliquis and compliance with amiodarone
Recurrence of Paroxysmal Afib due to noncompliance with Amiodarone for last 3-4 days to chr nausea flare
Successfully cardioverted to NSR at ER today
Marginal hypotension
- felt improved s/p CV ; remains in sinus this AM
- cont. Eliquis
- Amio resumed per cardiology
- appreciate cardiology consult
Chronic nausea, noncompliance with amiodarone and weight loss.
-EGD 12/25/23 with e/o celiac disease
-patient has not been eating a gluten free diet at home - further instructions given on importance
-nausea more likely 2/2 celiac than amio - she will now adhere to gluten free diet
Dizziness did improve with cardioversion
Mildly unsteady on her feet and she currently lives by herself in the community
Generalized weakness
- PT/OT
- Fall precaution
Chronic HFpEF: stable
- HX Aortic Stenosis s/p Bioprosthetic Aortic Valve Replacement
- Restart Lasix as recommended by cardiology
- Monitor IOs and daily Weights
Cachexia unclear etiology
BMI 15 c/w protein calorie malnutrition
- Regular diet
- Internal Salesperson consult
Other problems:
Hypothyroidism: cont home dose Levoxyl
GERD: cont PPI
HX Ocular Migraines: cont propranolol
DVT Px: Eliquis
Code: Full per patient
IP TLM
Anticipated Discharge: Today
Subjective/Interval History
-
Date of Service: January 29, 2024
feeling better
no vomiting today
wants to go home
will stick to gluten free diet now
Objective Data
-
Labs:
Laboratory Results
01/29/24
07:09
Sodium 131 L
Potassium 3.9
Chloride 92 L
Carbon Dioxide 32 H
BUN 26 H
Creatinine 0.7
Glucose 83
Calcium 8.7
Vital Signs:
Vital Signs
Temp Pulse Resp BP Pulse Ox
97.6 F 63 16 114/56 96
01/29/24 11:12 01/29/24 11:12 01/29/24 11:12 01/29/24 11:12 01/29/24 11:12
I&O
01/28/24 01/29/24 01/30/24
06:59 06:59 06:59
Intake Total 1440 / 1440
Balance 1440 / 1440
Review of Systems
-
History Source: Patient
All other systems: Reviewed and negative
Physical Exam
-
General: No Apparent Distress
HEENT: PERRLA
Respiratory: Clear to Auscultation
Cardiac: S1/S2 and Murmur; Negative JVD
GI: Soft and Nontender
Skin: Warm and Dry; Negative Rash
Neuro: AO x 3
Psych: Calm
Data Reviewed
-
Diagnostic Radiology: Report Reviewed by me
Labs: Labs Reviewed by me
--- NOTE | 2024-01-29 12:26 | W.DS.TRANS ---
DC Summary - Gear Hobber Set Up Operator
-
Discharge Instructions:
Sleep Apnea Risk Low
Discharge Diagnosis/Procedures atrial fibrillation with rapid ventricular rate
Diet Other diet
Additional Diets Gluten Free Diet
Activity As tolerated
Driving Restrictions As prior to admission
Bathing Restrictions None
Instructions: Lifestyle Changes to Manage Celiac Disease
Food Choices in a Gluten Free Diet
Celiac Disease (DC)
Gluten-free diet
Stand-Alone Forms:
Changes to Home Medications: No
Discharge Medications:
DC Medications w/original date entered in [employer]
lorazepam 1 mg tablet 1 mg PO HS Sleep 01/03/21
propranolol 10 mg tablet 5 mg PO DAILY ocular migraines 01/03/21
bimatoprost 0.01 % eye drops (Lumigan) 1 drp BOTH EYES HS Eye condition 09/12/21
Saccharomyces boulardii 250 mg capsule (Florastor) 250 mg PO DAILY Supplement 10/11/22
furosemide 40 mg tablet 40 mg PO DAILY Fluid retention/Swelling 10/11/22
amiodarone 200 mg tablet (Pacerone) 100 mg PO BID Arrhythmia 10/31/22
cyanocobalamin (vitamin B-12) 1,000 mcg capsule 1,000 mcg PO DAILY Supplement 10/31/22
zinc 50 mg tablet 50 mg PO DAILY Supplement 10/31/22
cholecalciferol (vitamin D3) 25 mcg (1,000 unit) tablet (Vitamin D3) 25 mcg PO DAILY Supplement 06/11/23
potassium chloride 20 mEq tablet,extended release 20 meq PO DAILY Electrolyte Repletion 06/11/23
levothyroxine 50 mcg tablet (Synthroid) 50 mcg PO DAILY@0600 12/27/23
omeprazole 20 mg capsule,delayed release 20 mg PO DAILY Gastrointestinal Issue 12/27/23
ondansetron 4 mg disintegrating tablet 4 mg PO Q8H PRN nausea/vomiting 12/27/23
apixaban 2.5 mg tablet (Eliquis) 2.5 mg PO BID #60 tabs 01/01/24
Home Medication Changes
Pending Results: No
--- NOTE | 2024-01-29 13:46 | VNURNOTE ---
[facility] resumption of care completed in [facility] after review of chart and discussion with patient. Patient confirmed knowing [facility] contact number.
Patient has a scale and is able to log a daily weight.
--- NOTE | 2024-01-29 14:05 | W.DCSUMMARY ---
Discharge Summary
Discharge Data
Date of Admission: 01/27/24
Date of Discharge: 01/29/24
-
Pending Results: No
Hospital Course
Discharging Physician : Dr. Kenyetta Askew
Disposition : Home
Primary care physician : Dr. Enrrique Montana
Principal Discharge diagnosis : Atrial Fibrillation with rapid ventricular rate; nausea and vomiting likely secondary to non-adherence to gluten free diet
Hospital Course :
Ms. Radha Delacruz is a 88 yo woman with hx paroxysmal atrial fibrillation s/p RAUL/cardioversion 12/31/23 discharged on amiodarone, moderate to severe mitral regurgitation, s/p bioprosthetic AVR, HTN, hypothyroidism, recent diagnosis of Celiac
Disease presents to the ER from cardiology clinic with afib with RVR. Patient had several days of nausea which she thought was secondary to amiodarone and had not been taking it. Of note, patient had not been adhering to a gluten free diet.
Triage vitals with pulse 118; EKG with afib with RVR. She underwent successful cardioversion. She was admitted overnight to medicine with cardiology consulting. She remained in sinus rhythm over next 48 hours. Amiodarone resumed as etiology of
nausea thought more likely to be 2/2 celiac disease.
Patient states she will now follow gluten free diet, given handouts on discharge.
She has follow up with PCP and Cardiology.
Time spent on discharge was 32 minutes.
Important imaging findings :
Procedure findings :
Discharge Plan
-
Patient Disposition: Home (Routine Discharge)
Discharge Diagnosis/Procedures: atrial fibrillation with rapid ventricular rate
Diet: Other diet
Additional Diets: Gluten Free Diet
Activity: As tolerated
Driving Restrictions: As prior to admission
Bathing Restrictions: None
Referrals:
Martha Brooks PA-C [Specified Professional Personl] - 02/24/24 12:40 pm (You have a cardiology follow-up appointment at the [place] office with Dr. Rhodes's physician microbiology lab assistant, Martha. Please call with questions)
Enrrique Montana DO [Family Provider] - in less than 1 week
Additional Discharge Medication Instructions: Resume Amiodarone
Monitor your symptoms on a gluten free diet and follow up with Dr. Fernandes as needed.
Prescriptions:
Continued
propranolol 10 MG tablet
5 mg PO DAILY
lorazepam 1 MG tablet
1 mg PO HS
Patient Comments:
01/27/2024: LAST FILLED 10/15/23, 270 TABS FOR 30 DAYS FROM [facility]
Lumigan 1 DROP drops
1 drp BOTH EYES HS
Saccharomyces boulardii [Florastor] 250 mg Capsule
250 mg PO DAILY
furosemide 40 MG tablet
40 mg PO DAILY
zinc 50 mg Tablet
50 mg PO DAILY
cyanocobalamin (vitamin B-12) 1,000 mcg Capsule
1,000 mcg PO DAILY
amiodarone [Pacerone] 200 mg tablet
100 mg PO BID
cholecalciferol (vitamin D3) [Vitamin D3] 25 mcg (1,000 unit) Tablet
25 mcg PO DAILY
potassium chloride 20 mEq tablet extended release
20 meq PO DAILY
omeprazole 20 mg capsule,delayed release(DR/EC)
20 mg PO DAILY
ondansetron 4 mg tablet,disintegrating
4 mg PO Q8H PRN (Reason: nausea/vomiting)
levothyroxine [Synthroid] 50 mcg tablet
50 mcg PO DAILY@0600
Eliquis 2.5 mg Tablet
2.5 mg PO BID Qty: 60 0RF
Discharge Orders:
Discharge Patient (As Directed); Ordered 01/29/24
Ordered By: Kenyetta Askew
Discharge Date and Time
Print Language: [place] ISLANDER
--- NOTE | 2024-01-29 15:08 | CM ---
entered order for discharge.
Spoke with pt and her son Rich .
She is ready for dc.
She said Rich will drive her home.
[facility] set up by [facility].
PLAN Home with [facility]
== END 2024-01-29 14:53 | disposition home health service (06) | DRG 308 ==
LOC: 4 EAST ACU 22:19
PROVIDERS: Emergency Medicine; ADMITTING PHYSICIAN Internal Medicine; ATTENDING PHYSICIAN Student in an Organized Health Care Education/Training Program; CONSULT PHYSICIAN Nuclear Medicine Nuclear Cardiology; EMERGENCY PHYSICIAN Emergency Medicine; FAMILY PHYSICIAN Family Medicine
DX: I48.0 Paroxysmal atrial fibrillation (principal); E43 Unspecified severe protein-calorie malnutrition; I50.32 Chronic diastolic (congestive) heart failure; Z68.1 Body mass index [BMI] 19.9 or less, adult; I34.0 Nonrheumatic mitral (valve) insufficiency; I11.0 Hypertensive heart disease with heart failure; E03.9 Hypothyroidism, unspecified; K90.0 Celiac disease; Z95.3 Presence of xenogenic heart valve; Z91.199 Patient's noncompliance with other medical treatment and regimen due to unspecified reason
CPT/HCPCS: 80048; 83735; 84132; 84439; 84443; 84484; 85025; 85027; 92960; 93005; 97162; 97166; 99152; 99291

== ENCOUNTER 2024-02-04 16:24 | Emergency (ER) | payer MEDICARE, BC, SELFPAY ==
[2024-02-04] VITALS (17 sets, daily range): BP systolic 90–118; BP diastolic 52–72; BMI 15.4
[2024-02-04 16:45] LABS: Hematocrit 36.5 % (37.0-47.0); Hemoglobin 12.3 g/dL (12.0-16.0); Mean Corp Hgb Conc. 33.7 g/dL (33.0-37.0); Mean Corpuscular Hgb 31.4 pg (27.0-31.0); Mean Corpuscular Volume 93.1 fL (81.0-99.0); Mean Platelet Volume 9.9 fL (7.4-10.4); Platelet Count 218 10^3/uL (130-400); Red Blood Cell Count 3.92 10^6/uL (4.20-5.40); Red Cell Dist. Width 16.1 % (11.5-14.5); White Blood Cell Count 4.7 10^3/uL (4.8-10.8)
[2024-02-04 16:56] LABS: ALT (SGPT) 67 U/L (0-35); AST (SGOT) 72 U/L (14-36); Albumin 3.8 g/dl (3.5-5.0); Alkaline Phosphatase 124 U/L (38-126); Blood Urea Nitrogen 25 mg/dl (7-17); Carbon Dioxide 33 mmol/L (22-30); Chloride 96 mmol/L (98-107); Estimated Creatinine Clearance 36 ml/min; Glucose 116 mg/dl (70-99); Potassium 4.1 mmol/L (3.5-5.1); Sodium 131 mmol/L (135-145); Total Bilirubin 0.7 mg/dl (0.2-1.3); Total Protein 7.1 g/dl (6.3-8.2); eGFR > 60.00
--- NOTE | 2024-02-04 17:58 | ED.GENMED ---
History of Present Illness
<Rolando Galarza MD - Last Filed: 02/04/24 19:41>
General
Chief Complaint: Dizziness
Time Seen by Provider: 02/04/24 16:37
Travel History
Have you had any contact with someone who has COVID-19?: No
Do you have any symptoms of coronavirus? Fever > 100 degrees, chills, cough, shortness of breath, sore throat, loss of taste or smell, muscle aches, or headache?: No
<Joseph Perez PA-C - Last Filed: 02/06/24 09:03>
General
Source: patient
Exam Limitations: none
History of Present Illness
History of Present Illness:
88-year-old female presents with lightheadedness dizziness fatigue and stating that her heart rate is fast to telling her she is in atrial fibrillation. She was here a week ago came in with A-fib was cardioverted and admitted. She is on amiodarone
and follows regularly with cardiology. She called the cardiology office and they told her to come in here for evaluation. She has been taking her Eliquis without missing any doses.
Past History
<Rolando Galarza MD - Last Filed: 02/04/24 19:41>
Past History
ED Past Medical History: Arrthythmia (PAF, s/p AV replacement April 2016), CHF, GERD, Hypercholesterolemia, Valvular disease (, s/p AVR) and Other ( pneumonia, hiatal hernia, arthritis, cataracts, glaucoma, macular degeneration, shingles, skin
cancer, small bowel obstruction)
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
surgery)
Patient has exhibited threatening behavior?: No
Social History
Tobacco: Non-smoker
Alcohol: None
Drug: None
Personal:
Living: alone
Employment: Retired
Family History
Family History: Other (Nonsignificant)
Phy Exam
<Joseph Perez PA-C - Last Filed: 02/06/24 09:03>
Physical Exam
Physical Exam:
General: Well-appearing female in no acute respiratory distress
HEENT: Normocephalic atraumatic heart: Tachycardic and irregular
Lungs: Clear no wheeze or rales
Abdomen soft nontender nondistended
Extremities: No cyanosis
Course
<Rolando Galarza MD - Last Filed: 02/04/24 19:41>
Orders/Labs/Results
Orders:
Orders
02/04/24 16:26
EKG [Electrocardiogram (*1)] Urgent
Reason for Study: Other
Other Reason for Exam: afib
02/04/24 16:27
EKG- Treatment ONCE
02/04/24 16:36
CMP [Comprehensive Metabolic Panel] Urgent
Complete Blood Count/No Diff Urgent
02/04/24 17:54
Ondansetron Injectable [Zofran] 4 mg IV NOW STA
02/04/24 18:12
Propofol [Diprivan] 20 ml .ROUTE .STK-MED
02/04/24 18:25
EKG [Electrocardiogram (*1)] Urgent
Reason for Study: Other
Other Reason for Exam: post cardioversion
EKG- Treatment ONCE
Abnormal Lab Results
02/04/24
16:36
WBC 4.7 L 10^3/uL
(4.8-10.8)
RBC 3.92 L 10^6/uL
(4.20-5.40)
Hct 36.5 L %
(37.0-47.0)
MCH 31.4 H pg
(27.0-31.0)
RDW 16.1 H %
(11.5-14.5)
Sodium 131 L mmol/L
(135-145)
Chloride 96 L mmol/L
(98-107)
Carbon Dioxide 33 H mmol/L
(22-30)
BUN 25 H mg/dl
(7-17)
Glucose 116 H mg/dl
(70-99)
AST 72 H U/L
(14-36)
ALT 67 H U/L
(0-35)
02/04/24 16:36
02/04/24 16:36
Vital Signs
Initial and Last Documented VS:
Initial Vital Signs
Resp BP Pulse Ox
17 90/61 98
02/04/24 16:28 02/04/24 16:28 02/04/24 16:28
Last Documented Vital Signs
Temp Pulse Resp BP Pulse Ox
98.1 F 75 16 96/53 95
02/04/24 18:33 02/04/24 19:24 02/04/24 19:24 02/04/24 19:24 02/04/24 19:24
<Joseph Perez PA-C - Last Filed: 02/06/24 09:03>
Orders/Labs/Results
Orders:
Orders
02/04/24 16:26
EKG [Electrocardiogram (*1)] Urgent
Reason for Study: Other
Other Reason for Exam: afib
02/04/24 16:27
EKG- Treatment ONCE
02/04/24 16:36
CMP [Comprehensive Metabolic Panel] Urgent
Complete Blood Count/No Diff Urgent
02/04/24 17:54
Ondansetron Injectable [Zofran] 4 mg IV NOW STA
02/04/24 18:12
Propofol [Diprivan] 20 ml .ROUTE .STK-MED
02/04/24 18:25
EKG [Electrocardiogram (*1)] Urgent
Reason for Study: Other
Other Reason for Exam: post cardioversion
EKG- Treatment ONCE
Abnormal Lab Results
02/04/24
16:36
WBC 4.7 L 10^3/uL
(4.8-10.8)
RBC 3.92 L 10^6/uL
(4.20-5.40)
Hct 36.5 L %
(37.0-47.0)
MCH 31.4 H pg
(27.0-31.0)
RDW 16.1 H %
(11.5-14.5)
Sodium 131 L mmol/L
(135-145)
Chloride 96 L mmol/L
(98-107)
Carbon Dioxide 33 H mmol/L
(22-30)
BUN 25 H mg/dl
(7-17)
Glucose 116 H mg/dl
(70-99)
AST 72 H U/L
(14-36)
ALT 67 H U/L
(0-35)
02/04/24 16:36
02/04/24 16:36
Vital Signs
Initial and Last Documented VS:
Initial Vital Signs
Resp BP Pulse Ox
17 90/61 98
02/04/24 16:28 02/04/24 16:28 02/04/24 16:28
Last Documented Vital Signs
Temp Pulse Resp BP Pulse Ox
98.1 F 75 16 96/53 95
02/04/24 18:33 02/04/24 19:24 02/04/24 19:24 02/04/24 19:24 02/04/24 19:24
Procedures
<Rolando Galarza MD - Last Filed: 02/04/24 19:41>
Cardioversion
Indication:: Afib
Performed by:: Rolando Galarza MD; Joseph Perez PA-C
Synchronized?: Yes
Energy Used: 150 joules
Number of attempts: 1
Successful?: Yes
Complications: none
ASA Risk Score: Class III
Any reaction or bad outcome to prior sedation/anesthesia?: No history of a reaction
Sedation level to be attained: moderate
Chart and allergies reviewed: Yes
Patient reassessed prior to sedation: Yes
Time out completed at (validating right patient & procedure): 18:22
History of difficult intubation: No
Airway free of obstruction: Yes
Patient has a gag reflex: Yes
Patient is able to open mouth: Yes
Patient has no dentures: No (removed prior to procedure)
Patient has no loose teeth: Yes
Medication administered by Provider during Moderate Sedation: IV Propofol (mg)
Total dose administered: 30
Time drug administered: 18:22
Start Time: 18:22
Stop Time: 18:32
<Joseph Perez PA-C - Last Filed: 02/06/24 09:03>
MDM/Problems Addressed
Differential Diagnosis Includes:
Patient presents with lightheadedness. Blood pressure is little low. EKG shows atrial flutter with variable block. Patient has not missed any doses of Eliquis. Discussed case emergency room attending as well as cardiology. Will decide to repeat
cardioversion. Written consent obtained for this.
<Joseph Perez PA-C - Last Filed: 02/06/24 09:03>
*Critical Care Note
Total Time (30-74mins, 75-104mins- exclusive of procedures): Not Applicable
<Rolando Galarza MD - Last Filed: 02/04/24 19:41>
Update Note
Update Note:
UPDATE
Observed for an hour after cardioversion�patient awake and alert, asymptomatic says she is feeling much better. She is ambulatory in the emergency room here without assistance. Requesting discharge. Will discharge to follow-up outpatient with
cardiology.
ED Attending Note
<Rolando Galarza MD - Last Filed: 02/04/24 19:41>
ED Attending Note
Patient seen and examined by attending physician: Yes
ED Attending Note:
I have seen and evaluated the patient with a [id number] encounter. I have spoken to the advance practicer provider and involved in the medical history, the physical exam, medical decision making.
Evaluation and management service: agree unless noted differently below.
Results interpretation: agree unless noted differently below.
Focused HPI: 88-year-old female with history as documented notable for paroxysmal A-fib on amiodarone and Eliquis who presents to the emergency room with fatigue and dizziness similar to prior A-fib symptoms. She says she woke up with the symptoms
this morning. They have been constant all day. Denies any chest pain, shortness of breath, syncope. She was seen last week for similar�was seen by me in the emergency room and cardioverted but was still feeling slightly dizzy and was ultimately
admitted for observation. She was restarted on amiodarone which she had been withholding due to nausea. She says the nausea has improved and she is feeling much better from a GI perspective. She reports compliance with all her medicines including
Eliquis and amiodarone this morning.
Physical exam: Awake and alert. Cachectic. Soft blood pressure 90/61, tachycardic to 111 irregularly irregular on monitor. Lungs clear to auscultation bilaterally. No edema in her extremities.
Medical Decision Makin-year-old female presents with dizziness and fatigue similar to prior A-fib symptoms�she is in A-fib with RVR today. She was just cardioverted in this emergency room last week with similar symptoms. PA discussed case
with cardiology recommended ED cardioversion once again and patient is eager to undergo this procedure again. Consent filed to medical record. Will proceed with cardioversion and if successful and symptoms/vitals improved plan for ED observation
and discharge home.
-
Portions of this chart may have been created with voice recognition software.� Occasional wrong word or��sound alike� substitutions may have occurred due to the inherent limitations of voice recognition software.
Discharge Plan
Departure
Patient Disposition: Home (Routine Discharge)
Date of Disposition: 02/04/24
Time of Disposition: 19:41
Patient with high blood pressure during this ER visit?: No
Discharge Problem:
Atrial flutter
Instructions: MODERATE SEDATION ADULT
Prescriptions:
No Action
propranolol 10 MG tablet
5 mg PO DAILY
lorazepam 1 MG tablet
1 mg PO HS
Saccharomyces boulardii [Florastor] 250 mg Capsule
250 mg PO DAILY
furosemide 40 MG tablet
40 mg PO DAILY
zinc 50 mg Tablet
50 mg PO DAILY
cyanocobalamin (vitamin B-12) 1,000 mcg Capsule
1,000 mcg PO DAILY
amiodarone [Pacerone] 200 mg tablet
100 mg PO BID
cholecalciferol (vitamin D3) [Vitamin D3] 25 mcg (1,000 unit) Tablet
25 mcg PO DAILY
potassium chloride 20 mEq tablet extended release
20 meq PO DAILY
omeprazole 20 mg capsule,delayed release(DR/EC)
20 mg PO DAILY
levothyroxine [Synthroid] 50 mcg tablet
50 mcg PO DAILY@0600
Eliquis 2.5 mg Tablet
2.5 mg PO BID Qty: 60 0RF
Lumigan 0.01 % Drops
1 drp BOTH EYES HS
Referrals:
Enrrique Montana DO [Family Provider] -
Activity Restrictions/Additional Instructions:
Please continue current medication regimen. Please follow-up with your land resource specialist. Return if worse otherwise
Interventions
Interventions:
*Risk Screen - Suicide Last Done: 02/04/24 16:31
*General Assessment Last Done: 02/04/24 16:31
*Neglect/Abuse Screening Last Done: 02/04/24 16:31
ED- Fall Risk Assessment Last Done: 02/04/24 20:14
*ED COVID-19 Vaccine History Last Done: 02/04/24 16:31
*Nursing Disposition Last Done: 02/04/24 20:14
ED- Cardiac Assessment Last Done: 02/04/24 16:40
Discharge Date and Time
Discharge Date/Time: 02/04/24 20:00
Print Language: SURINAMESE
[2024-02-04] MEDS: ZOFRAN 4 MG IV (18:13)
== END 2024-02-04 20:00 | disposition home or self-care (01) ==
LOC: EMR 16:24
PROVIDERS: EMERGENCY PHYSICIAN Emergency Medicine; FAMILY PHYSICIAN Family Medicine
DX: I48.92 Unspecified atrial flutter (principal)
CPT/HCPCS: 92960; 99285; 96374; 99152; 80053; 85027; 93005

== ENCOUNTER 2024-02-07 20:12 | Emergency (ER) | payer MEDICARE, BC, SELFPAY ==
[2024-02-07 20:15] VITALS: BMI 16.0
[2024-02-07 20:16] VITALS: BP 94/61
[2024-02-07 20:17] VITALS: BP 94/61
[2024-02-07 20:23] VITALS: BP 98/42
[2024-02-07 21:23] VITALS: BP 95/54
[2024-02-07 22:00] VITALS: BP 99/63
--- NOTE | 2024-02-07 22:36 | ED.MUSCINJ ---
HPI-Injury
General
Chief Complaint: Fall
Source: patient
Exam Limitations: none
Time Seen by Provider: 02/07/24 20:16
Nursing documentation reviewed up to this point in time: agreed with
Travel History
Have you had any contact with someone who has COVID-19?: No
Do you have any symptoms of coronavirus? Fever > 100 degrees, chills, cough, shortness of breath, sore throat, loss of taste or smell, muscle aches, or headache?: No
History of Present Illness-Injury
Is this injury a work related problem?: No
Is pt an associate of [facility]?: No
Initial Injury comments:
Patient states she tripped and fell. Fell onto her right hip. Hit right side of head on ground. NO LOC> Able to get self up and ambulate. Advised by pcp to come to ED for CT, on Eliquis. INcident occurred today. BRought to ED via EMS.
Past History
Past History
ED Past Medical History: Arrthythmia (PAF, s/p AV replacement April 2016), CHF, GERD, Hypercholesterolemia, Valvular disease (, s/p AVR) and Other ( pneumonia, hiatal hernia, arthritis, cataracts, glaucoma, macular degeneration, shingles, skin
cancer, small bowel obstruction)
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
surgery)
Patient has exhibited threatening behavior?: No
Social History
Tobacco: Non-smoker
Alcohol: None
Drug: None
Personal:
Living: alone
Employment: Retired
Family History
Family History: Other (Nonsignificant)
Review of Systems
Review of Systems
Allergies reviewed?: Yes
All Other Systems: ROS reviewed and negative except as documented in HPI and ROS
Constitutional: Reports no symptoms
EENT: Reports no symptoms
Respiratory: Reports no symptoms
Cardiac: Reports no symptoms
ABD/GI: Reports no symptoms
: Reports no symptoms
Musculoskeletal: Reports joint pain (Pain to right hip)
Skin: Reports no symptoms
Neurological: Reports no symptoms
Psychiatric: Reports no symptoms
Musculoskeletal Injury Exam
Musculoskeletal Injury Exam
Right Hip:
Pain with Movement?: Moderate
Tender to palpation?: Moderate
Soft tissue swelling?: None
External deformity and angulation?: None
Joint effusion?: None
Contusion?: Moderate
Hematoma-local bleeding into tissue?: None
Strain- Sprain- Tear (Connective tissue injury)?: None
Crepitus with movement?: No
Joint instability?: No
Malalignment/deformity?: No
Range of motion: Full
Distal skin color and temperature: normal-warm & good color
Capillary Refill: normal
Normal distal neurovascular exam?: Yes
Phy Exam
General Physical Exam
General Presentation: well appearing and no apparent distress
General age: appears stated age
General Skin: warm and dry
General Habitus: normal
General Mental: alert
Cardiovascular Exam
Cardiovascular Exam: regular rate/rhythm and no edema
Pulmonary Exam
Pulmonary Exam: no respiratory distress and chest non tender
Neurological Exam
Neurological Exam: alert, oriented x3, CN II-XII intact, no motor deficits, no sensory deficits, speech normal and normal gait
[place] Coma Scale
Eye Opening: Spontaneous
Verbal Response: Oriented
Motor Response: Obeys Commands
GCS Total Score: 15
Musculoskeletal Exam
Musculoskeletal Exam: full ROM and neuro vasc intact
Skin Exam
Skin Exam: normal color, warm/dry and no rash
Psychiatric Exam
Psychiatric Exam: normal mood/affect
Injury Course
Orders/Labs/Results
Orders:
Orders
02/07/24 20:43
CT Head W/o Iv Contrast Urgent
Comment:
Reason For Exam: trauma, on eliquis
Hip, Right 2-3 Views [CR Hip - RT w/wo Pel 2-3 Vw*] Urgent
Comment:
Reason For Exam: fall, pain
Include a pelvis x-ray?: Yes
*Radiology
Radiology exam reviewed: radiology read reviewed
*Pulse Oximetry
Patient hypoxic: no
*Critical Care Note
Total Time (30-74mins, 75-104mins- exclusive of procedures): Not Applicable
ED Attending Note
-
Portions of this chart may have been created with voice recognition software.� Occasional wrong word or��sound alike� substitutions may have occurred due to the inherent limitations of voice recognition software.
Discharge Plan
Departure
Patient Disposition: Home (Routine Discharge)
Date of Disposition: 02/07/24
Time of Disposition: 22:25
Patient with high blood pressure during this ER visit?: No
Condition: Good
Covid-19: Not Applicable
Discharge Problem:
Head injury, Contusion of hip, right
Instructions: Head Injury in Adults (DC), Contusion (DC), Preventing falls in adults
Prescriptions:
No Action
propranolol 10 MG tablet
5 mg PO DAILY
lorazepam 1 MG tablet
1 mg PO HS
Saccharomyces boulardii [Florastor] 250 mg Capsule
250 mg PO DAILY
furosemide 40 MG tablet
40 mg PO DAILY
zinc 50 mg Tablet
50 mg PO DAILY
cyanocobalamin (vitamin B-12) 1,000 mcg Capsule
1,000 mcg PO DAILY
amiodarone [Pacerone] 200 mg tablet
100 mg PO BID
cholecalciferol (vitamin D3) [Vitamin D3] 25 mcg (1,000 unit) Tablet
25 mcg PO DAILY
potassium chloride 20 mEq tablet extended release
20 meq PO DAILY
omeprazole 20 mg capsule,delayed release(DR/EC)
20 mg PO DAILY
levothyroxine [Synthroid] 50 mcg tablet
50 mcg PO DAILY@0600
Eliquis 2.5 mg Tablet
2.5 mg PO BID Qty: 60 0RF
Lumigan 0.01 % Drops
1 drp BOTH EYES HS
Referrals:
Enrrique Montana DO [Family Provider] - Follow up in 2-3 days
Interventions
Interventions:
*Risk Screen - Suicide Last Done: 02/07/24 20:20
*General Assessment Last Done: 02/07/24 20:19
*Neglect/Abuse Screening Last Done: 02/07/24 20:20
ED- Fall Risk Assessment Last Done: 02/07/24 21:25
*ED COVID-19 Vaccine History Last Done: 02/07/24 20:19
*Nursing Disposition Last Done: 02/07/24 23:45
ED-Musculoskeletal Assessment Last Done: 02/07/24 20:20
ED- Neurological Assessment Last Done: 02/07/24 20:20
ED-Skin Assessment Last Done: 02/07/24 20:20
Discharge Date and Time
Discharge Date/Time: 02/07/24 23:45
Print Language: GUINEAN
== END 2024-02-07 23:45 | disposition home or self-care (01) ==
LOC: EMR 20:12
PROVIDERS: EMERGENCY PHYSICIAN Emergency Medicine; FAMILY PHYSICIAN Family Medicine
DX: S09.90XA Unspecified injury of head, initial encounter (principal); S70.01XA Contusion of right hip, initial encounter; W18.09XA Striking against other object with subsequent fall, initial encounter; I48.0 Paroxysmal atrial fibrillation; I50.9 Heart failure, unspecified; K21.9 Gastro-esophageal reflux disease without esophagitis; E78.00 Pure hypercholesterolemia, unspecified; K44.9 Diaphragmatic hernia without obstruction or gangrene; B02.9 Zoster without complications; H35.30 Unspecified macular degeneration; M19.90 Unspecified osteoarthritis, unspecified site; Z79.01 Long term (current) use of anticoagulants; Z85.828 Personal history of other malignant neoplasm of skin; Z85.820 Personal history of malignant melanoma of skin; Z98.0 Intestinal bypass and anastomosis status; Z88.1 Allergy status to other antibiotic agents; Z88.8 Allergy status to other drugs, medicaments and biological substances
CPT/HCPCS: 99284; 70450; 73502

== ENCOUNTER → 2024-02-21 12:21 | Outpatient (REF) | payer MEDICARE, BC, SELFPAY ==
[2024-02-21 13:51] LABS: ALT (SGPT) 75 U/L (0-35); AST (SGOT) 68 U/L (14-36); Albumin 3.2 g/dl (3.5-5.0); Alkaline Phosphatase 176 U/L (38-126); Direct Bilirubin 0.5 mg/dl (0.0-0.4); Total Bilirubin 0.6 mg/dl (0.2-1.3); Total Protein 6.3 g/dl (6.3-8.2)
== END ==
LOC: OLAB 12:21
PROVIDERS: ATTENDING PHYSICIAN Specialist
DX: R19.7 Diarrhea, unspecified (principal)
CPT/HCPCS: 36415; 80076

== ENCOUNTER 2024-03-10 19:59 | Emergency (ER) | payer MEDICARE, BC, SELFPAY ==
[2024-03-10 20:07] VITALS: BP 110/73
[2024-03-10 20:08] VITALS: BP 110/73
[2024-03-10 20:23] VITALS: BMI 17.2
[2024-03-10 21:00] VITALS: BP 100/42
--- NOTE | 2024-03-10 21:00 | ED.MUSCINJ ---
HPI-Injury
General
Chief Complaint: Fall
Source: patient and ambulance crew
Exam Limitations: none
Time Seen by Provider: 03/10/24 20:36
Nursing documentation reviewed up to this point in time: agreed with
Travel History
Have you had any contact with someone who has COVID-19?: No
Do you have any symptoms of coronavirus? Fever > 100 degrees, chills, cough, shortness of breath, sore throat, loss of taste or smell, muscle aches, or headache?: No
History of Present Illness-Injury
Is this injury a work related problem?: No
Is pt an associate of [facility]?: No
Initial Injury comments:
88-year-old female history of A-fib on Eliquis slip and fall getting groceries delivered just prior to arrival apparently struck her head and her left hip no headache has mild neck pain mild pain in her left hip, no bruising, no preceding chest pain
or shortness of breath, appears to be a slip and fall type mechanism
Past History
Past History
ED Past Medical History: Arrthythmia (PAF, s/p AV replacement April 2016), CHF, GERD, Hypercholesterolemia, Valvular disease (, s/p AVR) and Other ( pneumonia, hiatal hernia, arthritis, cataracts, glaucoma, macular degeneration, shingles, skin
cancer, small bowel obstruction)
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
surgery)
Patient has exhibited threatening behavior?: No
Social History
Tobacco: Non-smoker
Alcohol: None
Drug: None
Personal:
Living: alone
Employment: Retired
Family History
Family History: Other (Nonsignificant)
Review of Systems
Review of Systems
All Other Systems: Not applicable
Constitutional: Denies fever or fatigue
EENT: Reports no symptoms
Respiratory: Reports no symptoms
Cardiac: Reports no symptoms
ABD/GI: Reports no symptoms
: Reports no symptoms
Musculoskeletal: Reports joint pain (Very mild in the left hip and pelvis) and neck pain; Denies back pain
Skin: Reports no symptoms
Neurological: Denies dizzy, weakness or numbness
Hematologic/Lymphatic: Reports no symptoms
Phy Exam
Physical Exam
Physical Exam:
Physical Exam
General: no apparent distress, not acutely ill normal mental status no overt signs of head or neck trauma
Neck: No tongue bite mild paraspinal pain in the mid cervical spine
Heart: Irregular
Lungs: no acute respiratory distress. clear bilaterally
Abdomen: Soft nontender
Neuro: alert and oriented. no focal neurological deficits
Skin: no rash
Psychiatric: well kept. interactive and cooperative
Extremities: No pain with range of motion of the hips, trace edema is present
Injury Course
Orders/Labs/Results
Orders:
Orders
03/10/24 20:48
CT Cervical Spine W/o Iv Contr Urgent
Comment:
Reason For Exam: fall
CT Head W/o Iv Contrast Urgent
Comment:
Reason For Exam: fall
03/10/24 20:49
CR Hip - LT w/wo Pel 2-3 Vw* Urgent
Comment:
Reason For Exam: fall
Include a pelvis x-ray?: Yes
MDM/Problems Addressed
Differential Diagnosis Includes:
Slip and fall head trauma neck trauma pelvic or hip fracture
MDM/Problems Addressed:
Fall
Chronic conditions affecting care:
A-fib anticoagulated
Chronic conditions affecting care: Arrhythmia
Acute Exacerbation and/or Progression of Chronic Illness:
A-fib
*Radiology
Radiology exam reviewed: preliminary read by ED provider
*Pulse Oximetry
Patient hypoxic: no
*Critical Care Note
Total Time (30-74mins, 75-104mins- exclusive of procedures): Not Applicable
Update Note
Update Note:
1:[address] reports noted pelvis and hip films negative to my eye
ED Attending Note
-
Portions of this chart may have been created with voice recognition software.� Occasional wrong word or��sound alike� substitutions may have occurred due to the inherent limitations of voice recognition software.
Discharge Plan
Departure
Patient Disposition: Home (Routine Discharge)
Date of Disposition: 03/11/24
Time of Disposition: 01:33
Patient with high blood pressure during this ER visit?: No
Condition: Good
Discharge Problem:
Fall
Prescriptions:
No Action
propranolol 10 MG tablet
5 mg PO DAILY
lorazepam 1 MG tablet
1 mg PO HS
Saccharomyces boulardii [Florastor] 250 mg Capsule
250 mg PO DAILY
furosemide 40 MG tablet
40 mg PO DAILY
zinc 50 mg Tablet
50 mg PO DAILY
cyanocobalamin (vitamin B-12) 1,000 mcg Capsule
1,000 mcg PO DAILY
amiodarone [Pacerone] 200 mg tablet
100 mg PO BID
cholecalciferol (vitamin D3) [Vitamin D3] 25 mcg (1,000 unit) Tablet
25 mcg PO DAILY
potassium chloride 20 mEq tablet extended release
20 meq PO DAILY
omeprazole 20 mg capsule,delayed release(DR/EC)
20 mg PO DAILY
levothyroxine [Synthroid] 50 mcg tablet
50 mcg PO DAILY@0600
Eliquis 2.5 mg Tablet
2.5 mg PO BID Qty: 60 0RF
Lumigan 0.01 % Drops
1 drp BOTH EYES HS
Referrals:
Enrrique Montana DO [Family Provider] -
Interventions
Interventions:
*Risk Screen - Suicide Last Done: 03/10/24 20:07
*General Assessment Last Done: 03/10/24 20:07
*Neglect/Abuse Screening Last Done: 03/10/24 20:07
ED- Fall Risk Assessment Last Done: 03/10/24 20:07
ED-Musculoskeletal Assessment Last Done: 03/10/24 20:19
ED- Neurological Assessment Last Done: 03/10/24 20:19
ED-Skin Assessment Last Done: 03/10/24 20:19
Discharge Date and Time
Print Language: SAMOAN
[2024-03-10 22:00] VITALS: BP 110/74
[2024-03-10 23:00] VITALS: BP 113/74
[2024-03-11] VITALS: BP 110/75
[2024-03-11 01:00] VITALS: BP 108/86
[2024-03-11] MEDS: PACERONE 200 MG PO (02:11)
[2024-03-11] MEDS: ELIQUIS 2.5 MG PO (02:11)
== END 2024-03-11 02:40 | disposition home or self-care (01) ==
LOC: EMR 19:59
PROVIDERS: EMERGENCY PHYSICIAN Emergency Medicine; FAMILY PHYSICIAN Family Medicine
DX: M54.2 Cervicalgia (principal); M25.552 Pain in left hip; S09.90XA Unspecified injury of head, initial encounter; R10.2 Pelvic and perineal pain; W18.30XA Fall on same level, unspecified, initial encounter; Y93.89 Activity, other specified; I48.0 Paroxysmal atrial fibrillation; I50.9 Heart failure, unspecified; E78.00 Pure hypercholesterolemia, unspecified; K21.9 Gastro-esophageal reflux disease without esophagitis; M19.90 Unspecified osteoarthritis, unspecified site; B02.9 Zoster without complications; F32.A Depression, unspecified; Z79.01 Long term (current) use of anticoagulants; Z85.820 Personal history of malignant melanoma of skin; Z98.0 Intestinal bypass and anastomosis status
CPT/HCPCS: 99284; 70450; 72125; 73502

== ENCOUNTER 2024-03-11 09:16 | Day surgery (SDC) | payer MEDICARE, BC, SELFPAY ==
--- NOTE | 2024-03-11 10:43 | ITS.CL.CARDI ---
[facility] - Cardioversion
Cardioversion
Procedure Report:
Date of Procedure:
Procedure: Cardioversion
Indication: Symptomatic atrial fibrillation
Performing Physician: Bry Pastrana MD
Technique: The patient was brought to the holding area. Signed informed consent was obtained. A time out was called and performed. The patient was anesthetized by the anesthesia service. Anticoagulation status was reviewed and appropriate. R2 pads
were placed anteriorly and posteriorly. A 200 J synchronized biphasic shock restored normal sinus rhythm without significant bradycardia. There were no complications.
Conclusion: Uncomplicated cardioversion from atrial fibrillation to sinus rhythm.
Recommendation: Routine post cardioversion care. Continue retirement anticoagulation.
== END 2024-03-11 11:35 | disposition home or self-care (01) ==
LOC: CATH 09:16
PROVIDERS: ATTENDING PHYSICIAN Internal Medicine Cardiovascular Disease; FAMILY PHYSICIAN Family Medicine; OTHER PHYSICIAN Internal Medicine Cardiovascular Disease
DX: I48.0 Paroxysmal atrial fibrillation (principal); I34.0 Nonrheumatic mitral (valve) insufficiency; I11.0 Hypertensive heart disease with heart failure; I50.32 Chronic diastolic (congestive) heart failure; K21.9 Gastro-esophageal reflux disease without esophagitis; Z79.01 Long term (current) use of anticoagulants
CPT/HCPCS: 92960; 93005

== ENCOUNTER → 2024-03-25 11:00 | Outpatient (REF) | payer MEDICARE, BC, SELFPAY ==
[2024-03-25 13:27] LABS: Blood Urea Nitrogen 32 mg/dl (7-17); Calcium 9.1 mg/dl (8.4-10.2); Carbon Dioxide 35 mmol/L (22-30); Chloride 97 mmol/L (98-107); Glucose 97 mg/dl (70-99); Potassium 4.7 mmol/L (3.5-5.1); Sodium 137 mmol/L (135-145); eGFR > 60.00
[2024-03-25 13:34] LABS: NT-proBNP 6220 pg/ml
[2024-03-25 13:45] LABS: Digoxin 0.5 ng/ml (0.8-2.0)
== END ==
LOC: CLAB 11:00
PROVIDERS: ATTENDING PHYSICIAN Internal Medicine Cardiovascular Disease; FAMILY PHYSICIAN Family Medicine
DX: I50.32 Chronic diastolic (congestive) heart failure (principal); I48.21 Permanent atrial fibrillation
CPT/HCPCS: 36415; 80048; 80162; 83880

== ENCOUNTER 2024-04-18 23:11 | Emergency (ER) | payer MEDICARE, BC, SELFPAY ==
[2024-04-18 23:12] VITALS: BMI 15.3
[2024-04-18 23:13] VITALS: BP 136/83
[2024-04-18 23:15] VITALS: BP 136/83
--- NOTE | 2024-04-18 23:24 | ED.GENMED ---
History of Present Illness
<IAIN Zepeda - Last Filed: 04/19/24 07:10>
General
Chief Complaint: Fall
Source: patient
Exam Limitations: none
Time Seen by Provider: 04/18/24 23:23
Nursing documentation reviewed up to this point in time: agreed with
History of Present Illness
History of Present Illness:
88 year old female presents for evaluation of a fall. Pt notes that she tripped and fell while at home at approximately 2200. She notes that she fell onto her right side and hit her head on the rug as well. She endorses 3/10 pain in her right side
currently. She denies dizziness, weakness, LOC, N/V, BOYKIN, photophobia, SOB, and CP prior to and following the fall. Pt has a history of A-fib and is taking Eliquis daily.
Past History
<IAIN Zepeda - Last Filed: 04/19/24 07:10>
Past History
ED Past Medical History: Arrthythmia (PAF, s/p AV replacement April 2016), CHF, GERD, Hypercholesterolemia, Valvular disease (, s/p AVR) and Other ( pneumonia, hiatal hernia, arthritis, cataracts, glaucoma, macular degeneration, shingles, skin
cancer, small bowel obstruction)
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
surgery)
Patient has exhibited threatening behavior?: No
Social History
Tobacco: Non-smoker
Alcohol: None
Drug: None
Personal:
Living: alone
Employment: Retired
Family History
Family History: Other (Nonsignificant)
Review of Systems
<IAIN Zepeda - Last Filed: 04/19/24 07:10>
Review of Systems
Allergies reviewed?: Yes
Constitutional: Reports no symptoms
EENT: Reports no symptoms
Respiratory: Reports no symptoms
Cardiac: Reports no symptoms
ABD/GI: Reports no symptoms
: Reports no symptoms
Musculoskeletal: Reports back pain (r side rib/low back pain )
Skin: Reports no symptoms
Neurological: Reports no symptoms
Endocrine: Reports no symptoms
Hematologic/Lymphatic: Reports no symptoms
Psychiatric: Reports no symptoms
Phy Exam
<IAIN Zepeda - Last Filed: 04/19/24 07:10>
General Physical Exam
General Presentation: well appearing
General age: appears stated age
General Skin: warm
General Habitus: elderly and frail
General Mental: alert
General Hydration: appears well hydrated
ENT Exam
ENT Exam: EOMI and normocephalic
Cardiovascular Exam
Cardiovascular Exam: regular rate/rhythm and no murmur
Pulmonary Exam
Pulmonary Exam: lungs clear and no respiratory distress
Neurological Exam
Neurological Exam: alert, oriented x3, CN II-XII intact, no motor deficits, no sensory deficits and speech normal
Musculoskeletal Exam
Musculoskeletal Exam: full ROM and back pain
Skin Exam
Skin Exam: normal color and warm/dry
Course
<IAIN Zepeda - Last Filed: 04/19/24 07:10>
Orders/Labs/Results
Orders:
Orders
04/19/24 00:00
CR Ribs-right 3 Vw W/pa Chest* Urgent
Reason For Exam: mechanical fall, right lateral rib pain
04/19/24 00:04
CT Head W/o Iv Contrast Urgent
Reason For Exam: fall, R head injury-on Eliquis
Vital Signs
Initial and Last Documented VS:
Initial Vital Signs
Temp Pulse Resp BP Pulse Ox
98.5 F 91 18 136/83 93
04/18/24 23:13 04/18/24 23:13 04/18/24 23:13 04/18/24 23:13 04/18/24 23:13
Last Documented Vital Signs
Temp Pulse Resp BP Pulse Ox
98.5 F 75 18 107/73 92
04/18/24 23:13 04/19/24 06:40 04/19/24 06:40 04/19/24 06:40 04/19/24 06:40
<Maryanne Chan DO - Last Filed: 04/19/24 05:29>
Orders/Labs/Results
Orders:
Orders
04/19/24 00:00
CR Ribs-right 3 Vw W/pa Chest* Urgent
Reason For Exam: mechanical fall, right lateral rib pain
04/19/24 00:04
CT Head W/o Iv Contrast Urgent
Reason For Exam: fall, R head injury-on Eliquis
Vital Signs
Initial and Last Documented VS:
Initial Vital Signs
Temp Pulse Resp BP Pulse Ox
98.5 F 91 18 136/83 93
04/18/24 23:13 04/18/24 23:13 04/18/24 23:13 04/18/24 23:13 04/18/24 23:13
Last Documented Vital Signs
Temp Pulse Resp BP Pulse Ox
98.5 F 75 18 107/73 92
04/18/24 23:13 04/19/24 06:40 04/19/24 06:40 04/19/24 06:40 04/19/24 06:40
<IAIN Zepeda - Last Filed: 04/19/24 07:10>
MDM/Problems Addressed
Differential Diagnosis Includes:
R rib fracture, subdural hematoma
MDM/Problems Addressed:
CT Head W/o Iv Contrast - unremarkable
Ribs, Right 3 View W/PA Chest - unremarkable
Urinalysis
<Maryanne Chan DO - Last Filed: 04/19/24 05:29>
*Radiology
Radiology exam reviewed: preliminary read by ED provider (Chest x-ray/right rib series shows chronic consolidation right lower lobe. No evidence of rib fracture.) and radiology read reviewed (CT of the head shows no acute traumatic findings)
*Pulse Oximetry
Patient hypoxic: no
*Critical Care Note
Total Time (30-74mins, 75-104mins- exclusive of procedures): Not Applicable
ED Attending Note
<IAIN Zepeda - Last Filed: 04/19/24 07:10>
-
Portions of this chart may have been created with voice recognition software.� Occasional wrong word or��sound alike� substitutions may have occurred due to the inherent limitations of voice recognition software.
<Maryanne Chan DO - Last Filed: 04/19/24 05:29>
ED Attending Note
Patient seen and examined by attending physician: Yes
ED Attending Note:
88-year-old woman resides at home independently. She has history of paroxysmal atrial fibrillation chronically maintained on Eliquis. History of ambulatory dysfunction, chronically requires a walker to ambulate. While getting up and reaching for
her walker she lost her balance and fell onto her right side injuring her right lateral thorax and admits to striking the right side of her head on the ground. She denies loss of consciousness, denies headache, denies neck or back pain. As she is
maintained on Eliquis she called 911 as she assumed she would require imaging.
Similar mechanical falls with ED visits February of this year as well as January of this year. Imaging studies on those visits were all unremarkable.
She denies dizziness nor lightheadedness, denies chest pain or palpitations.
TRAUMA EXAM:
VITAL SIGNS: Vital signs reviewed, cooperative
DISTRESS: 88-year-old thin, small framed woman appears her stated age, bright and alert, pleasant, appears in no acute distress. Easily communicative. Repositions about stretcher with ease and without difficulty.
EYES: Pupils reactive, no orbital trauma
NOSE: No deformity or epistaxis
FACE AND SCALP: No scalp or facial trauma, external canals no blood
NECK: Cervical collar removed by myself. The neck is supple, no midline bony tenderness. No paravertebral muscular tenderness. Full cervical range of motion without difficulty nor pain.
BACK: Back nontender, pelvis stable to compression
RESPIRATORY: No distress, breath sounds normal, no tender chest wall. No crepitus nor palpable bony abnormality.
CARDIAC: No murmur, pulses equal and strong
ABDOMEN: Soft nontender bowel sounds normal
SKIN: Skin intact no bleeding, color normal
EXTREMITIES: Nontender, full range of motion without difficulty nor pain.
NEUROLOGICAL: Alert, oriented, no motor deficits
PSYCH: Mood affect normal
Due to advanced age, chronically maintained on Eliquis and concern for right parietal head injury will check CT of the head.
She also notes some right lateral flank pain and believes this is where she 'struck the ground first'. Exam is overall reassuring without reproducible bony tenderness nor CVA tenderness.
She does continue with some mild discomfort right lateral flank thus concern for occult renal injury. Will check urinalysis. Concern for occult rib injury. Will check right rib series with chest x-ray.
04/19/2024 04:00 AM
Patient resting comfortably.
CT of the head is unremarkable.
Chest x-ray and right rib series shows no evidence of acute fracture. There is note of chronic consolidation right lower lobe, appears improved from previous films.
Patient has successfully ambulated to and from the bathroom with walker. She does note some right upper back pain only noted when getting up from the toilet otherwise no pain with ambulation.
I suspect this is musculoskeletal pain in nature. There is no evidence of fracture.
She remains hemodynamically stable.
Discussed importance of consistent use with walker and that her walker should be nearby at all times.
Prompt follow-up with PCP for recheck.
Discharge Plan
Departure
Patient Disposition: Home (Routine Discharge)
Date of Disposition: 04/19/24
Time of Disposition: 05:26
Patient with high blood pressure during this ER visit?: No
Condition: Good
Discharge Problem:
mechanical fall at home, Acute right-sided thoracic back pain, Minor closed head injury
Instructions: Contusion (DC), Preventing falls in adults
Prescriptions:
No Action
propranolol 10 MG tablet
5 mg PO DAILY
lorazepam 1 MG tablet
1 mg PO HS
Saccharomyces boulardii [Florastor] 250 mg Capsule
250 mg PO DAILY
furosemide 40 MG tablet
40 mg PO DAILY
zinc 50 mg Tablet
50 mg PO DAILY
cyanocobalamin (vitamin B-12) 1,000 mcg Capsule
1,000 mcg PO DAILY
amiodarone [Pacerone] 200 mg tablet
100 mg PO BID
cholecalciferol (vitamin D3) [Vitamin D3] 25 mcg (1,000 unit) Tablet
25 mcg PO DAILY
potassium chloride 20 mEq tablet extended release
20 meq PO DAILY
omeprazole 20 mg capsule,delayed release(DR/EC)
20 mg PO DAILY
levothyroxine [Synthroid] 50 mcg tablet
50 mcg PO DAILY@0600
Eliquis 2.5 mg Tablet
2.5 mg PO BID Qty: 60 0RF
Lumigan 0.01 % Drops
1 drp BOTH EYES HS
Referrals:
Enrrique Montana, [Non-Admitting Privileges] - Call in 1-3 days for appt
UNKNOWN - PT DOES,NOT KNOW [Family Provider] -
Interventions
Interventions:
*Risk Screen - Suicide Last Done: 04/18/24 23:13
*General Assessment Last Done: 04/18/24 23:13
*Neglect/Abuse Screening Last Done: 04/18/24 23:13
ED- Fall Risk Assessment Last Done: 04/18/24 23:30
*Nursing Disposition Last Done: 04/19/24 06:48
ED-Musculoskeletal Assessment Last Done: 04/18/24 23:30
ED- Neurological Assessment Last Done: 04/18/24 23:30
Discharge Date and Time
Discharge Date/Time: 04/19/24 06:49
Print Language: BULGARIAN
[2024-04-19] VITALS: BP 124/83
[2024-04-19 06:40] VITALS: BP 107/73
== END 2024-04-19 06:49 | disposition home or self-care (01) ==
LOC: EMR 23:11
PROVIDERS: EMERGENCY PHYSICIAN Emergency Medicine
DX: M54.6 Pain in thoracic spine (principal); Y92.009 Unspecified place in unspecified non-institutional (private) residence as the place of occurrence of the external cause; I48.0 Paroxysmal atrial fibrillation; I50.9 Heart failure, unspecified; E78.00 Pure hypercholesterolemia, unspecified; K21.9 Gastro-esophageal reflux disease without esophagitis; Z79.01 Long term (current) use of anticoagulants; Z85.820 Personal history of malignant melanoma of skin; Z85.828 Personal history of other malignant neoplasm of skin; Z90.49 Acquired absence of other specified parts of digestive tract; Z90.710 Acquired absence of both cervix and uterus
CPT/HCPCS: 99284; 70450; 71101

== ENCOUNTER 2024-05-21 17:45 | Emergency (ER) | payer MEDICARE, BC, SELFPAY ==
[2024-05-21 17:47] VITALS: BP 127/76
--- NOTE | 2024-05-21 17:58 | ED.GENMED ---
History of Present Illness
General
Chief Complaint: Fall
Source: patient
Exam Limitations: none
Time Seen by Provider: 05/21/24 17:51
History of Present Illness
History of Present Illness:
See MDM
Past History
Past History
ED Past Medical History: Arrthythmia (PAF, s/p AV replacement April 2016), CHF, GERD, Hypercholesterolemia, Valvular disease (, s/p AVR) and Other ( pneumonia, hiatal hernia, arthritis, cataracts, glaucoma, macular degeneration, shingles, skin
cancer, small bowel obstruction)
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
surgery)
Patient has exhibited threatening behavior?: No
Social History
Tobacco: Non-smoker
Alcohol: None
Drug: None
Personal:
Living: alone
Employment: Retired
Family History
Family History: Other (Nonsignificant)
Phy Exam
Physical Exam
Physical Exam:
See MDM
Course
Orders/Labs/Results
Orders:
Orders
05/21/24 17:56
Electrocardiogram (*1) Urgent
Reason for Study: Vertigo / Dizzy
CT Head W/o Iv Contrast Urgent
Comment:
Reason For Exam: fall, head injury
EKG- Treatment ONCE
CR Ribs-left 3 Vw W/pa Chest Urgent
Comment:
Reason For Exam: fall, left posterior rib pain
05/21/24 18:01
Complete Blood Count/With Diff Urgent
Comprehensive Metabolic Panel Urgent
Abnormal Lab Results
05/21/24
18:01
WBC 4.5 L 10^3/uL
(4.8-10.8)
RBC 3.56 L 10^6/uL
(4.20-5.40)
Hgb 11.0 L g/dL
(12.0-16.0)
Hct 33.9 L %
(37.0-47.0)
MCHC 32.4 L g/dL
(33.0-37.0)
RDW 14.9 H %
(11.5-14.5)
Absolute Lymphs (auto) 0.9 L 10^3/uL
(1.2-3.4)
Lymphocytes % 20.4 L %
(20.5-51.1)
Monocytes % 11.5 H %
(1.7-9.3)
Chloride 94 L mmol/L
(98-107)
Carbon Dioxide 35 H mmol/L
(22-30)
BUN 24 H mg/dl
(7-17)
AST 78 H U/L
(14-36)
ALT 90 H U/L
(0-35)
Alkaline Phosphatase 178 H U/L
(38-126)
05/21/24 18:01
05/21/24 18:01
Vital Signs
Initial and Last Documented VS:
Initial Vital Signs
Temp Pulse Resp BP Pulse Ox
97.9 F 72 24 127/76 95
05/21/24 17:47 05/21/24 17:47 05/21/24 17:47 05/21/24 17:47 05/21/24 17:47
Last Documented Vital Signs
Temp Pulse Resp BP Pulse Ox
97.9 F 73 18 127/76 92
05/21/24 17:47 05/21/24 18:30 05/21/24 18:30 05/21/24 17:47 05/21/24 18:30
MDM/Problems Addressed
Differential Diagnosis Includes:
HPI and MDM Narrative:
88-year-old female presenting for evaluation of unwitnessed fall. Patient lives alone and she states she was carrying mendoza up the stairs. She thinks she lost her balance and fell backwards. She states she hit her head. She is on Eliquis.
Patient planing of mild left posterior rib pain. She denies headache or hip tenderness. On exam, she is well-appearing and nontoxic. She states she feels safe at home. Patient requesting to go home but is comfortable waiting for CT head, rib
x-rays and basic blood
Physical exam
General: Well appearing and non-toxic
HEENT: protecting airway
Neck: Nontender, supple
CV: No evidence of cyanosis. Irregular rhythm, regular rate
Resp: No accessory muscle use. Lungs clear. Small abrasion to left posterior ribs
Abd: Non-distended
Extremities: No deformities. No tenderness to hip palpation
Neuro: alert
Psych: Normal affect
Skin: Intact
Problems Addressed including Acute and Chronic Conditions affecting care:
1. Unwitnessed fall
Acuity: acute
Prognosis: stable
Details: Will obtain CT head
2. Rib injury
Acuity: acute
Prognosis: stable
Details: Will obtain x-rays to rule out fracture
Updates
CT head negative. Rib x-rays negative. Patient feels comfortable going home
Differential Diagnosis (but not limited to): Intracranial hemorrhage, concussion, rib contusion, fracture
Testing considered: CT neck but no tenderness elicited
Drug therapy (if applicable): OTC meds, please see d/c instruction regarding Rx drugs
Amount and/or Complexity of Data Reviewed
Clinical info obtained from: Patient
External data reviewed: N/A
Labs I independently reviewed (but not limited to): Elevated LFTs which appear to be close to baseline
Radiology: X-ray independently reviewed: Rib x-rays negative for fracture
The CT scan was personally and independently reviewed. In addition, official CT report reviewed.
Pulse Ox: not hypoxic
EKG independently reviewed: A-fib, normal axis, no STEMI
Clean Out Driller: N/A
Critical Care: N/A
Risk of Complication:
Social Determinants of health: Good social support
Discussed with other providers: N/A
Escalation of Care includes Admit/Obs: After being observed in the Emergency Department, pt stable for discharge.
Occasional wrong word or 'sound a like' substitutions may have occurred due to the inherent limitations of voice recognition software. Read the chart carefully and recognize, using context, where substitutions have occurred.
*Critical Care Note
Total Time (30-74mins, 75-104mins- exclusive of procedures): Not Applicable
ED Attending Note
-
Portions of this chart may have been created with voice recognition software.� Occasional wrong word or��sound alike� substitutions may have occurred due to the inherent limitations of voice recognition software.
Discharge Plan
Departure
Patient Disposition: Home (Routine Discharge)
Date of Disposition: 05/21/24
Time of Disposition: 19:24
Patient with high blood pressure during this ER visit?: No
Discharge Problem:
Contusion of rib on left side
Instructions: Bruised Rib (DC)
Prescriptions:
No Action
propranolol 10 MG tablet
5 mg PO DAILY
lorazepam 1 MG tablet
1 mg PO HS
Saccharomyces boulardii [Florastor] 250 mg Capsule
250 mg PO DAILY
furosemide 40 MG tablet
40 mg PO DAILY
zinc 50 mg Tablet
50 mg PO DAILY
cyanocobalamin (vitamin B-12) 1,000 mcg Capsule
1,000 mcg PO DAILY
amiodarone [Pacerone] 200 mg tablet
100 mg PO BID
cholecalciferol (vitamin D3) [Vitamin D3] 25 mcg (1,000 unit) Tablet
25 mcg PO DAILY
potassium chloride 20 mEq tablet extended release
20 meq PO DAILY
omeprazole 20 mg capsule,delayed release(DR/EC)
20 mg PO DAILY
levothyroxine [Synthroid] 50 mcg tablet
50 mcg PO DAILY@0600
Eliquis 2.5 mg Tablet
2.5 mg PO BID Qty: 60 0RF
Lumigan 0.01 % Drops
1 drp BOTH EYES HS
Referrals:
Enrrique Montana DO [Family Provider] -
Activity Restrictions/Additional Instructions:
Please return for any worsening symptoms.
You may return at any time if you have further concerns.
Please follow up with your doctor at the first available appointment, preferably this week.
Thank you for choosing [facility].
Interventions
Interventions:
*Risk Screen - Suicide Last Done: 05/21/24 18:07
*General Assessment Last Done: 05/21/24 18:07
*Neglect/Abuse Screening Last Done: 05/21/24 18:07
ED- Fall Risk Assessment Last Done: 05/21/24 18:07
*ED COVID-19 Vaccine History Last Done: 05/21/24 18:07
ED-Musculoskeletal Assessment Last Done: 05/21/24 18:07
ED- Neurological Assessment Last Done: 05/21/24 18:07
ED-Skin Assessment Last Done: 05/21/24 18:07
Discharge Date and Time
Print Language: CHINESE
[2024-05-21 18:03] VITALS: BMI 15.1
[2024-05-21 18:07] LABS: % Basophils 0.7 % (0-2); % Eosinophils 0.7 % (0-6); % Immature Granulocytes 0.4 % (0-0.5); % Lymphocytes 20.4 % (20.5-51.1); % Monocytes 11.5 % (1.7-9.3); % Neutrophils 66.3 % (42.2-75.2); Absolute Lymphocytes 0.9 10^3/uL (1.2-3.4); Absolute Monocytes 0.5 10^3/uL (0.1-0.6); Hematocrit 33.9 % (37.0-47.0); Mean Corp Hgb Conc. 32.4 g/dL (33.0-37.0); Mean Corpuscular Hgb 30.9 pg (27.0-31.0); Mean Corpuscular Volume 95.2 fL (81.0-99.0); Mean Platelet Volume 10.2 fL (7.4-10.4); Nucleated Red Blood Cells % 0 %; Platelet Count 235 10^3/uL (130-400); Red Blood Cell Count 3.56 10^6/uL (4.20-5.40); Red Cell Dist. Width 14.9 % (11.5-14.5); White Blood Cell Count 4.5 10^3/uL (4.8-10.8)
[2024-05-21 18:25] LABS: ALT (SGPT) 90 U/L (0-35); AST (SGOT) 78 U/L (14-36); Albumin 4.4 g/dl (3.5-5.0); Alkaline Phosphatase 178 U/L (38-126); Blood Urea Nitrogen 24 mg/dl (7-17); Calcium 9.3 mg/dl (8.4-10.2); Carbon Dioxide 35 mmol/L (22-30); Chloride 94 mmol/L (98-107); Estimated Creatinine Clearance 31 ml/min; Glucose 94 mg/dl (70-99); Sodium 136 mmol/L (135-145); Total Bilirubin 0.9 mg/dl (0.2-1.3); Total Protein 7.5 g/dl (6.3-8.2); eGFR > 60.00
== END 2024-05-21 20:06 | disposition home or self-care (01) ==
LOC: EMR 17:45
PROVIDERS: EMERGENCY PHYSICIAN Student in an Organized Health Care Education/Training Program; FAMILY PHYSICIAN Family Medicine
DX: S20.212A Contusion of left front wall of thorax, initial encounter (principal); W19.XXXA Unspecified fall, initial encounter; E78.00 Pure hypercholesterolemia, unspecified; I48.0 Paroxysmal atrial fibrillation; I50.9 Heart failure, unspecified; K21.9 Gastro-esophageal reflux disease without esophagitis; Z85.820 Personal history of malignant melanoma of skin; Z85.828 Personal history of other malignant neoplasm of skin; Z90.49 Acquired absence of other specified parts of digestive tract; Z90.710 Acquired absence of both cervix and uterus
CPT/HCPCS: 99284; 70450; 71101; 80053; 85025; 93005

== ENCOUNTER 2024-06-02 19:27 | Emergency (ER) | payer MEDICARE, BC, SELFPAY ==
[2024-06-02 19:37] VITALS: BP 129/78
[2024-06-02 19:38] VITALS: BP 129/78
[2024-06-02 20:00] VITALS: BP 118/75
[2024-06-02 21:00] VITALS: BP 121/68
[2024-06-02 22:00] VITALS: BP 136/80
--- NOTE | 2024-06-02 22:19 | ED.GENMED ---
History of Present Illness
General
Chief Complaint: Fall
Source: patient and ambulance crew
Exam Limitations: none
Time Seen by Provider: 06/02/24 19:28
History of Present Illness
History of Present Illness:
88-year-old female who presents after fall at home. The patient states she just tripped over her chair and hit her head on the furniture in her house. [facility] She does live close to [place] but requested transfer to us. Patient
denies neck or back pain. No motor weakness. No vision changes
Past History
Past History
ED Past Medical History: Arrthythmia (PAF, s/p AV replacement April 2016), CHF, GERD, Hypercholesterolemia, Valvular disease (, s/p AVR) and Other ( pneumonia, hiatal hernia, arthritis, cataracts, glaucoma, macular degeneration, shingles, skin
cancer, small bowel obstruction)
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
surgery)
Patient has exhibited threatening behavior?: No
Social History
Tobacco: Non-smoker
Alcohol: None
Drug: None
Personal:
Living: alone
Employment: Retired
Family History
Family History: Other (Nonsignificant)
Phy Exam
Physical Exam
Physical Exam:
CONSTITUTIONAL Patient alert and oriented to person, place and time. Well-appearing. Vital signs reviewed.
HEAD 1 cm lack over the right brow
EYES eyelids normal to inspection, Pupils equally round and reactive to light, Extraocular muscles intact, Conjunctiva normal, Sclera normal.
NECK normal range of motion, Trachea midline, no jugular venous distention. No midline tenderness
RESPIRATORY CHEST No respiratory distress noted, Chest expansion equal,
BACK normal inspection, no obvious deformities, no midline tenderness
UPPER EXTREMITY range of motion normal, Motor strength normal, no cyanosis, no edema.
LOWER EXTREMITY range of motion normal, Motor strength normal, no cyanosis, no edema.
NEURO Speech normal, No focal motor deficits, Alice coma scale 15, Memory normal, Cranial Nerves intact to screening exam.
SKIN skin warm, dry, and normal in color.
PSYCHIATRIC patient oriented to person place and time, Normal affect.
Course
Orders/Labs/Results
Orders:
Orders
06/02/24 19:28
CT Head W/o Iv Contrast Urgent
Comment:
Reason For Exam: fall, head injury on eliquis
Vital Signs
Initial and Last Documented VS:
Initial Vital Signs
BP
129/78
06/02/24 19:37
Last Documented Vital Signs
Temp Pulse Resp BP Pulse Ox
97.4 F 69 18 121/68 93
06/02/24 19:38 06/02/24 20:53 06/02/24 20:53 06/02/24 21:00 06/02/24 21:00
Procedures
Laceration Closure
Right Eye brow:
Status of Wound: clean
Size of Wound in cm: 1
Description of Wound Edges: sharp
Revision/Debridement: routine- no revision
Wound exploration: extensive cleaning of contaminated wound
Type of Closure: single layer closure
Skin Closure Material: 6-0 prolene
Number of sutures: 4
MDM/Problems Addressed
MDM/Problems Addressed:
Facial laceration, head injury
*Radiology
Radiology exam reviewed: preliminary read by ED provider (No obvious intracranial hemorrhage) and radiology read reviewed
*Critical Care Note
Total Time (30-74mins, 75-104mins- exclusive of procedures): Not Applicable
Data Reviewed
Source: patient
Further Testing Considered But Not Given:
Consider C-spine imaging but no midline tenderness
Patient Management
Escalation/DeEscalation of care consider admission/obs:
Laceration repaired. CT negative. Okay for discharge
ED Attending Note
-
Portions of this chart may have been created with voice recognition software.� Occasional wrong word or��sound alike� substitutions may have occurred due to the inherent limitations of voice recognition software.
Discharge Plan
Departure
Patient Disposition: Home (Routine Discharge)
Date of Disposition: 06/02/24
Time of Disposition: 22:21
Patient with high blood pressure during this ER visit?: No
Discharge Problem:
Head injury, Laceration
Instructions: Head Injury in Adults (DC), Laceration Repair With Stitches (DC)
Prescriptions:
No Action
propranolol 10 MG tablet
5 mg PO DAILY
lorazepam 1 MG tablet
1 mg PO HS
Saccharomyces boulardii [Florastor] 250 mg Capsule
250 mg PO DAILY
furosemide 40 MG tablet
80 mg PO DAILY
zinc 50 mg Tablet
50 mg PO DAILY
cyanocobalamin (vitamin B-12) 1,000 mcg Capsule
1,000 mcg PO DAILY
cholecalciferol (vitamin D3) [Vitamin D3] 25 mcg (1,000 unit) Tablet
25 mcg PO DAILY
potassium chloride 20 mEq tablet extended release
20 meq PO DAILY
omeprazole 20 mg capsule,delayed release(DR/EC)
20 mg PO DAILY
levothyroxine [Synthroid] 50 mcg tablet
50 mcg PO DAILY@0600
Eliquis 2.5 mg Tablet
2.5 mg PO BID Qty: 60 0RF
Lumigan 0.01 % Drops
1 drp BOTH EYES HS
digoxin 62.5 mcg (0.0625 mg) Tablet
62.5 mcg PO DAILY
Referrals:
Enrrique Montana DO [Family Provider] -
Activity Restrictions/Additional Instructions:
Return immediately for weakness of any kind, headache, vomiting, worsening symptoms or any other concerns. Sutures can be removed in 1 week.
Interventions
Interventions:
*Risk Screen - Suicide Last Done: 06/02/24 19:30
*General Assessment Last Done: 06/02/24 19:30
*Neglect/Abuse Screening Last Done: 06/02/24 19:30
ED- Fall Risk Assessment Last Done: 06/02/24 19:39
*ED COVID-19 Vaccine History Last Done: 06/02/24 19:30
ED-Musculoskeletal Assessment Last Done: 06/02/24 19:41
ED- Neurological Assessment Last Done: 06/02/24 19:39
ED-Skin Assessment Last Done: 06/02/24 19:39
Discharge Date and Time
Print Language: [place]
[2024-06-02 23:00] VITALS: BP 126/79
== END 2024-06-02 23:15 | disposition home or self-care (01) ==
LOC: EMR 19:27
PROVIDERS: EMERGENCY PHYSICIAN Emergency Medicine; FAMILY PHYSICIAN Family Medicine
DX: S01.112A Laceration without foreign body of left eyelid and periocular area, initial encounter (principal); S09.90XA Unspecified injury of head, initial encounter; W18.09XA Striking against other object with subsequent fall, initial encounter; Z79.01 Long term (current) use of anticoagulants
CPT/HCPCS: 99284; 12051; 70450

== ENCOUNTER 2024-08-09 13:45 | Inpatient (IN) | payer MEDICARE, BC, SELFPAY ==
[2024-08-05] VITALS (13 sets, daily range): BP systolic 94–131; BP diastolic 57–77; BMI 16.0
[2024-08-05] MEDS: MORPHINE SULFATE 4 MG IV (08:19)
[2024-08-05] MEDS: ZOFRAN 4 MG IV ×2 (08:23→18:22)
[2024-08-05 08:30] LABS: % Basophils 0.5 % (0-2); % Eosinophils 0.3 % (0-6); % Immature Granulocytes 0.5 % (0-0.5); % Lymphocytes 11.8 % (20.5-51.1); % Monocytes 11.2 % (1.7-9.3); % Neutrophils 75.7 % (42.2-75.2); Absolute Lymphocytes 0.7 10^3/uL (1.2-3.4); Absolute Monocytes 0.7 10^3/uL (0.1-0.6); Absolute Neutrophils 4.7 10^3/uL (1.4-6.5); Hematocrit 31.4 % (37.0-47.0); Hemoglobin 10.2 g/dL (12.0-16.0); Mean Corp Hgb Conc. 32.5 g/dL (33.0-37.0); Mean Corpuscular Hgb 29.9 pg (27.0-31.0); Mean Corpuscular Volume 92.1 fL (81.0-99.0); Mean Platelet Volume 10.7 fL (7.4-10.4); Nucleated Red Blood Cells % 0 %; Platelet Count 174 10^3/uL (130-400); Red Blood Cell Count 3.41 10^6/uL (4.20-5.40); Red Cell Dist. Width 15.5 % (11.5-14.5); White Blood Cell Count 6.2 10^3/uL (4.8-10.8)
--- NOTE | 2024-08-05 08:31 | ED.GENMED ---
History of Present Illness
General
Chief Complaint: Fall
Time Seen by Provider: 08/05/24 07:27
History of Present Illness
History of Present Illness:
88-year-old female with history of A-fib on Coumadin and CHF presenting after a fall. Patient reports that she fell out of bed and struck her left flank region. She has now had left flank pain. Denies chest pain or shortness of breath, however
reports pain with deep inspiration. She is unsure whether or not she struck her head, however denies any visual changes or confusion. Denies any neck pain. She denies any pain in her extremities. She denies any abdominal pain or GI complaints.
She denies any additional injuries from the fall or additional acute medical complaints
Past History
Past History
ED Past Medical History: Arrthythmia (PAF, s/p AV replacement April 2016), CHF, GERD, Hypercholesterolemia, Valvular disease (, s/p AVR) and Other ( pneumonia, hiatal hernia, arthritis, cataracts, glaucoma, macular degeneration, shingles, skin
cancer, small bowel obstruction)
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
surgery)
Patient has exhibited threatening behavior?: No
Social History
Tobacco: Non-smoker
Alcohol: None
Drug: None
Personal:
Living: alone
Employment: Retired
Family History
Family History: Other (Nonsignificant)
Phy Exam
Physical Exam
Physical Exam:
General: Well-appearing, no clinical signs of dehydration, nontoxic and in no acute distress
HEENT: protecting airway
Neck: appears supple
CV: Normal heart rate, regular rhythm
Resp: No accessory muscle use, no increased work of breathing, lungs clear to auscultation bilaterally. Diffuse tenderness to the left posterior thoracic back along the rib angles. No crepitus. No ecchymosis
Abd: Soft and non-distended, no tenderness to palpation, normal bowel sounds
Extremities: No deformities, no swelling, no erythema
Neuro: alert, no focal neurologic deficit
: deferred
Rectal: deferred
Psych: Normal affect
Skin: Intact
Course
Orders/Labs/Results
Orders:
Orders
08/05/24 07:27
CT Head W/o Iv Contrast Urgent
Comment:
Reason For Exam: fall + thinners
08/05/24 08:07
CT Chest W/o Iv Contrast Urgent
Comment:
Reason For Exam: L-posterior rib pain, fell out of bed
Cardiac Monitoring- Treatment ONCE
Morphine Sulfate 4 mg IV NOW STA
08/05/24 08:10
Complete Blood Count/With Diff Urgent
Comprehensive Metabolic Panel Urgent
08/05/24 08:22
Ondansetron Injectable [Zofran] 4 mg IV NOW STA
08/05/24 08:23
Ondansetron Injectable [Zofran] 4 mg .ROUTE .STK-MED ONE
Abnormal Lab Results
08/05/24
08:10
RBC 3.41 L 10^6/uL
(4.20-5.40)
Hgb 10.2 L g/dL
(12.0-16.0)
Hct 31.4 L %
(37.0-47.0)
MCHC 32.5 L g/dL
(33.0-37.0)
RDW 15.5 H %
(11.5-14.5)
MPV 10.7 H fL
(7.4-10.4)
Absolute Lymphs (auto) 0.7 L 10^3/uL
(1.2-3.4)
Absolute Monos (auto) 0.7 H 10^3/uL
(0.1-0.6)
Neutrophils % 75.7 H %
(42.2-75.2)
Lymphocytes % 11.8 L %
(20.5-51.1)
Monocytes % 11.2 H %
(1.7-9.3)
Chloride 97 L mmol/L
(98-107)
Carbon Dioxide 31 H mmol/L
(22-30)
BUN 31 H mg/dl
(7-17)
Glucose 111 H mg/dl
(70-99)
AST 64 H U/L
(14-36)
ALT 59 H U/L
(0-35)
Alkaline Phosphatase 160 H U/L
(38-126)
08/05/24 08:10
08/05/24 08:10
Vital Signs
Initial and Last Documented VS:
Initial Vital Signs
Temp Pulse Resp BP Pulse Ox
97.6 F 91 20 131/74 95
08/05/24 07:21 08/05/24 07:21 08/05/24 07:21 08/05/24 07:21 08/05/24 07:21
Last Documented Vital Signs
Temp Pulse Resp BP Pulse Ox
97.6 F 99 12 94/60 79
08/05/24 07:21 08/05/24 10:15 08/05/24 10:15 08/05/24 10:00 08/05/24 10:15
MDM/Problems Addressed
MDM/Problems Addressed:
88-year-old female presenting to the emergency department after a fall out of bed with subsequent left back pain. Vital signs on arrival are normal.
On exam, patient is in no acute distress, awake, alert, oriented. No visual signs of trauma, however focally tender to the left posterior back along the rib angles with suspicion for rib fracture or contusion. Suspected possible multiple rib
fractures. For this reason we will CT of the chest. Given anticoagulation status and unclear if her head, will also obtain CT of the brain. Morphine administered for pain.
10:30 -CT without acute rib fracture. There is an old right-sided rib fracture. CT brain without acute intracranial abnormality. Labs are relatively unremarkable with section of mild transaminitis and alk phos. CT of the chest incidentally does
show a right lower lobe loculated effusion, mentioning potential pneumonia versus malignancy. Patient denies significant cough or fever, does note that she has had a lot of mucus production. When patient arrived, saturations were in the low 90s,
did however to 89. On reassessment, patient was resting comfortably and patient saturations were in the low 80s with a good pleth, however patient in no significant respiratory distress. Patient placed on supplemental O2. Given oxygenation with
CT findings. Feel patient will require admission for continued respiratory monitoring. Will preemptively start patient on antibiotics in the setting of potential pneumonia.
*Critical Care Note
Total Time (30-74mins, 75-104mins- exclusive of procedures): Not Applicable
ED Attending Note
-
Portions of this chart may have been created with voice recognition software.� Occasional wrong word or��sound alike� substitutions may have occurred due to the inherent limitations of voice recognition software.
Discharge Plan
Departure
Prescriptions:
No Action
propranolol 10 MG tablet
5 mg PO DAILY
lorazepam 1 MG tablet
1 mg PO TID
furosemide 40 MG tablet
40 mg PO BID
potassium chloride 20 mEq tablet extended release
20 meq PO BID
omeprazole 20 mg capsule,delayed release(DR/EC)
20 mg PO DAILY
levothyroxine [Synthroid] 50 mcg tablet
50 mcg PO DAILY@0600
Eliquis 2.5 mg Tablet
2.5 mg PO BID Qty: 60 0RF
Lumigan 0.01 % Drops
1 drp BOTH EYES HS
digoxin 62.5 mcg (0.0625 mg) Tablet
62.5 mcg PO MOWEFR
escitalopram oxalate [Lexapro] 10 mg Tablet
10 mg PO HS
acetaminophen [Tylenol] 325 mg Tablet
650 mg PO Q6HPRN PRN (Reason: headaches)
Referrals:
Enrrique Montana DO [Family Provider] -
Interventions
Interventions:
*Risk Screen - Suicide Last Done: 08/05/24 07:21
*General Assessment Last Done: 08/05/24 07:21
*Neglect/Abuse Screening Last Done: 08/05/24 07:21
Discharge Date and Time
Print Language: CHINESE
[2024-08-05 08:39] LABS: ALT (SGPT) 59 U/L (0-35); AST (SGOT) 64 U/L (14-36); Albumin 4.3 g/dl (3.5-5.0); Alkaline Phosphatase 160 U/L (38-126); Blood Urea Nitrogen 31 mg/dl (7-17); Calcium 9.6 mg/dl (8.4-10.2); Carbon Dioxide 31 mmol/L (22-30); Chloride 97 mmol/L (98-107); Glucose 111 mg/dl (70-99); Potassium 4.7 mmol/L (3.5-5.1); Sodium 140 mmol/L (135-145); Total Bilirubin 0.9 mg/dl (0.2-1.3); Total Protein 7.2 g/dl (6.3-8.2); eGFR > 60.00
--- NOTE | 2024-08-05 10:49 | HPS.HSE ---
Family Physician
-
Family Physician: Enrrique Montana
Chief Complaint
-
Fall out of bed
History of Present Illness
88-year-old female who fell out of bed and struck her left flank and has left flank pain. Patient had a similar episode on May 21, 2024 where she presented to the ER with an unwitnessed fall while carrying mendoza upstairs.
Medical History
Past Medical History
Past Medical History: Reports Other
Additional Past Medical History:
Migraines, atrial fibrillation, CHF, atrial fibrillation, history of bile obstruction, GERD/hiatal hernia, lymphocytic colitis,Arthritis, hypothyroidism, celiac disease?, Anemia, glaucoma, blindness in right eye, depression
Past Surgical History: Reports Other
Additional Past Surgical History:
Hysterectomy, aortic valve replacement 2015, appendectomy, parotid tumor, right ankle surgery, right meniscus surgery, prolapsed vaginal surgery, melanoma right thigh surgery, right cataract surgery, bowel resection 2013
Social History
Tobacco: Non-smoker
Alcohol: None
Drug: None
Family History
Family History: Not pertinent
Allergies / Home Medications
Allergies reflects when Allergies were last updated in [facility].
Home Medications with original date entered in [facility]
Allergy/Medication List:
Allergies
Allergy/AdvReac Type Severity Reaction Status Date / Time
amlodipine Allergy lower Verified 08/05/24 07:26
extremity
edema
cefazolin sodium [From [facility]] Allergy trachea Verified 08/05/24 07:26
swelling
Home Medications
lorazepam 1 mg tablet 1 mg PO TID Sleep 01/03/21
propranolol 10 mg tablet 5 mg PO DAILY ocular migraines 01/03/21
furosemide 40 mg tablet 40 mg PO BID Fluid retention/Swelling 10/11/22
potassium chloride 20 mEq tablet,extended release 20 meq PO BID Electrolyte Repletion 06/11/23
levothyroxine 50 mcg tablet (Synthroid) 50 mcg PO DAILY@0600 12/27/23
omeprazole 20 mg capsule,delayed release 20 mg PO DAILY Gastrointestinal Issue 12/27/23
apixaban 2.5 mg tablet (Eliquis) 2.5 mg PO BID #60 tabs 01/01/24
bimatoprost 0.01 % eye drops (Lumigan) 1 drp BOTH EYES HS 02/04/24
digoxin 62.5 mcg (0.0625 mg) tablet 62.5 mcg PO MOWEFR 06/02/24
acetaminophen 325 mg tablet (Tylenol) 650 mg PO Q6HPRN PRN headaches 08/05/24
escitalopram oxalate 10 mg tablet (Lexapro) 10 mg PO HS 08/05/24
Review of Systems
-
History Source: Patient
Respiratory: Denies Trouble Breathing
Cardiac: Reports Other (lateral rib pain on left inferior); Denies Chest Pain
Physical Exam
Vital Signs
Vital Signs
Temp Pulse Resp BP Pulse Ox
97.6 F 99 12 94/60 95
08/05/24 07:21 08/05/24 10:15 08/05/24 10:15 08/05/24 10:00 08/05/24 10:15
Physical Exam
General: Conversant and Pain
Respiratory: Decreased Breath Sounds (right base)
Cardiac: S1/S2, Irregular Rhythm and Murmur (apex )
GI: Soft, Non Tender and Normal Bowel Sounds
Musculoskeletal: No Edema
Neuro: AO x 3 and Nonfocal/grossly intact
Laboratory Results
-
08/05/24 08:10
08/05/24 08:10
Laboratory Results
Total Bilirubin 0.9 mg/dl (0.2-1.3) 08/05/24 08:10
AST 64 U/L (14-36) H 08/05/24 08:10
ALT 59 U/L (0-35) H 08/05/24 08:10
Alkaline Phosphatase 160 U/L (38-126) H 08/05/24 08:10
Data Reviewed
-
CT Scan: Report Reviewed by me (Chest-healing left posterior ninth rib fracture, likely loculated small right pleural effusion with accompanying right lower lobe consolidation could represent atelectasis or pneumonia. Right lower lobe mass cannot
be excluded. Cardiomegaly. Slightly prominent caliber central pulmonary arteries b) and Other (CT of the head-no acute changes. Diffuse cortical atrophy with nonspecific white matter changes.)
Medical Tests (Nuc Med, Echo, EKG etc): Image Personally Visualized and interpreted (EKG-atrial flutter with variable block, left posterior fascicular block. Septal infarct age undetermined. Inferior ischemia)
Impression/Plan
-
IMPRESSION/PLAN:
Transesophageal echo 12/31/2023-normal LV size, LV systolic function, mild concentric LVH, EF 65%, normal RV size and function. Severely dilated left atrium, severely dilated right atrium, thickened calcific mitral valve leaflets. Calcific chondral
and subchondral structures. Moderate mitral annular calcification. Moderate MS. Severe MR. Bioprosthetic aortic valve functioning well. Mild eccentric AI. Mild to moderate TR.
# Fall-from bed-mechanical
History of previous fall and healing rib injury.
Patient has pain on the left lateral rib area I will add lidocaine patch
# Acute hypoxic respiratory insufficiency
Small right pleural effusion with accompanying right lower lobe consolidation
Check USS
Patient does not have any signs of pneumonia I would not continue antibiotics
# Paroxysmal atrial fibrillation with cardioversion 12/31/2023 and also 03/11/2024
Continue digoxin, Eliquis not on amiodarone anymore
# Anemia-check iron studies
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
She was not felt to be a candidate for MitraClip
# Hypothyroidism-continue Synthroid
# CHF-chronic HFpEF-continue Lasix with potassium
# Celiac disease diagnosed 12/25/2023 by EGD and biopsy
# Ocular migraine-on propranolol
# GERD/hiatal hernia-continue PPI
# Depression-continue Lexapro
# Chronically elevated LFTs-needs outpatient GI follow-up
# Glaucoma-continue Lumigan eyedrops
# Wet macular degeneration
# History of melanoma
# Small bowel obstruction secondary to adhesions, s/p partial small bowel resection/[facility], 03/2014 at
# DVT prophylaxis-continue Eliquis
# CODE STATUS- Spoke to son He is not sure. So keep as a full code.
D/W SOn
D/W RN
[2024-08-05] MEDS: ZOSYN 100 IV (11:15)
[2024-08-05 11:49] LABS: Troponin I 0.012 ng/ml
[2024-08-05 17:00] LABS: Troponin I 0.021 ng/ml
[2024-08-05] MEDS: ATIVAN 1 MG PO ×2 (18:15→22:39)
[2024-08-05] MEDS: LASIX 40 MG PO (18:15)
[2024-08-05] MEDS: MORPHINE SULFATE 1 MG IV (18:22)
[2024-08-05] MEDS: ELIQUIS 2.5 MG PO (19:42)
[2024-08-05] MEDS: KCL 20 MEQ PO (19:42)
[2024-08-05] MEDS: TYLENOL 1000 MG PO (22:38)
[2024-08-05] MEDS: LEXAPRO 10 MG PO (22:38)
[2024-08-05] MEDS: XALATAN OPHTHALMIC SOLUTION 1 DROP BOTH EYES (22:39)
[2024-08-05 23:42] LABS: Troponin I 0.029 ng/ml
[2024-08-06] VITALS (10 sets, daily range): BP systolic 91–114; BP diastolic 55–67; PULSE 79; O2SAT 91; BMI 15.8
[2024-08-06] MEDS: SYNTHROID 50 MCG PO (06:11)
[2024-08-06 07:45] LABS: Hematocrit 31.1 % (37.0-47.0); Hemoglobin 9.9 g/dL (12.0-16.0); Mean Corp Hgb Conc. 31.8 g/dL (33.0-37.0); Mean Corpuscular Hgb 30.9 pg (27.0-31.0); Mean Corpuscular Volume 97.2 fL (81.0-99.0); Mean Platelet Volume 10.5 fL (7.4-10.4); Platelet Count 150 10^3/uL (130-400); Red Cell Dist. Width 15.1 % (11.5-14.5); White Blood Cell Count 4.9 10^3/uL (4.8-10.8)
[2024-08-06 08:07] LABS: Blood Urea Nitrogen 29 mg/dl (7-17); Calcium 8.8 mg/dl (8.4-10.2); Carbon Dioxide 34 mmol/L (22-30); Chloride 96 mmol/L (98-107); Estimated Creatinine Clearance 32 ml/min; Glucose 91 mg/dl (70-99); Magnesium 1.9 mg/dl (1.6-2.3); Potassium 4.6 mmol/L (3.5-5.1); Sodium 140 mmol/L (135-145); eGFR > 60.00
[2024-08-06] MEDS: LASIX 40 MG PO ×2 (08:33→15:42)
[2024-08-06] MEDS: KCL 20 MEQ PO ×2 (08:33→20:03)
[2024-08-06] MEDS: PROTONIX 40 MG PO (08:33)
[2024-08-06] MEDS: INDERAL 5 MG PO (08:33)
[2024-08-06] MEDS: ELIQUIS 2.5 MG PO ×2 (08:34→20:03)
[2024-08-06] MEDS: ATIVAN 1 MG PO ×3 (08:34→22:48)
[2024-08-06] MEDS: TYLENOL 1000 MG PO ×3 (08:35→22:48)
[2024-08-06 08:57] LABS: Vitamin B12 490 pg/ml (239-931)
--- NOTE | 2024-08-06 10:57 | PTOTSP ---
Speech Therapy Swallowing Assessment
Oral/pharyngeal swallow deemed within functional limits without overt signs of aspiration or pharyngeal stasis. Possible esophageal dysphagia given belching and history of GERD.
Recommend
1. Continue Regular solids and thin liquids
2. Meds with liquid or as best tolerated.
3. Reflux precautions.
Skilled ST NOT indicated.
[2024-08-06 12:44] LABS: Iron < 20 ug/dl (37-170)
[2024-08-06 12:52] LABS: Total Iron Binding Capacity 361 ug/dl (265-497)
[2024-08-06] MEDS: VIBRAMYCIN 100 MG PO ×2 (13:08→20:03)
[2024-08-06 13:09] LABS: Ferritin 52.7 ng/ml (11.1-264.0)
--- NOTE | 2024-08-06 14:01 | CM ---
Pt seen at bedside. Pt lives alone in a 1STH w/ 4 steps to enter.
Prev. independent w/ walker. Has raised toilet seat, shower chairs and rails in the home for additional support
Denies SNF hx
Had [facility] in the past
Address, point of contact and insurance verified
PCP: Dr. Giselle Montana
Pharmacy: [facility]
CM discussed PT/OT rec. of SNF. Pt agreeable and was provided PAC list to explore SNF choices
CM asked pt if she would like for her son to be consulted as well re SNF, she declined this
Will send SNF referrals once pt decides on choices
Plan: SNF at d/c
--- NOTE | 2024-08-06 14:22 | W.PN.HOSP.TC ---
Today's Communication/Plan
-
PT evaluation noted. Medically stable for discharge to rehab
Assessment / Plan
Assessment / Plan
88-year-old female with a fall
CVS: S1-S2 normal
Chest: Decreased at right base, left rib tenderness
Abdomen: Soft, NT / Bowel sounds present
Extremities: No edema
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
Transesophageal echo 12/31/2023-normal LV size, LV systolic function, mild concentric LVH, EF 65%, normal RV size and function. Severely dilated left atrium, severely dilated right atrium, thickened calcific mitral valve leaflets. Calcific chondral
and subchondral structures. Moderate mitral annular calcification. Moderate MS. Severe MR. Bioprosthetic aortic valve functioning well. Mild eccentric AI. Mild to moderate TR.
# Fall-from bed-mechanical
History of previous fall and healing rib injury.
Patient has pain on the left lateral rib area
Patient's refusing to try tramadol, lidocaine patch or oxycodone. She wants morphine. I made her aware that we cannot keep giving her IV morphine without her trying other treatments.
# Acute hypoxic respiratory insufficiency
Off oxygen
Small right pleural effusion with accompanying right lower lobe consolidation-treat as pneumonia with a course of doxycycline
USS on a small amount of fluid
Speech evaluation noted. No risk of aspiration
# Paroxysmal atrial fibrillation with cardioversion 12/31/2023 and also 03/11/2024
Continue digoxin, Eliquis not on amiodarone anymore
# Anemia-check iron studies
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
She was not felt to be a candidate for MitraClip
# Hypothyroidism-continue Synthroid
# CHF-chronic HFpEF-continue Lasix with potassium
# Celiac disease diagnosed 12/25/2023 by EGD and biopsy
# Ocular migraine-on propranolol
# GERD/hiatal hernia-continue PPI
# Depression-continue Lexapro
# Chronically elevated LFTs-needs outpatient GI follow-up
# Glaucoma-continue Lumigan eyedrops
# Wet macular degeneration
# History of melanoma
# Small bowel obstruction secondary to adhesions, s/p partial small bowel resection/[facility], 03/2014 at
# DVT prophylaxis-continue Eliquis
# CODE STATUS-DNR per patient preference. Son also agrees
D/W Son. He is aware that DNR. Since that is her choice he and agrees with the plan.
D/W RN
I made the patient aware that she cannot keep asking for morphine. She has to try other modalities of pain management prior to taking morphine. At this point she does not think lidocaine, tramadol or oxycodone works and is requesting morphine.
Anticipated Discharge: Within 24 hours
Subjective/Interval History
-
Date of Service: August 06, 2024
Objective Data
-
Labs:
Laboratory Results
08/06/24
07:05
WBC 4.9
Hgb 9.9 L
Hct 31.1 L
Plt Count 150
Sodium 140
Potassium 4.6
Chloride 96 L
Carbon Dioxide 34 H
BUN 29 H
Creatinine 0.8
Glucose 91
Calcium 8.8
Vital Signs:
Vital Signs
Temp Pulse Resp BP Pulse Ox
97.6 F 74 22 91/55 92
08/06/24 11:05 08/06/24 11:05 08/06/24 11:05 08/06/24 11:05 08/06/24 11:05
I&O
08/05/24 08/06/24 08/07/24
06:59 06:59 06:59
Intake Total 200 / 200
Balance 200 / 200
[2024-08-06] MEDS: LEXAPRO 10 MG PO (22:48)
[2024-08-06] MEDS: XALATAN OPHTHALMIC SOLUTION 1 DROP BOTH EYES (23:05)
[2024-08-07] VITALS (7 sets, daily range): BP systolic 111–125; BP diastolic 57–75; PULSE 72; O2SAT 100; BMI 15.8
[2024-08-07] MEDS: SYNTHROID 50 MCG PO (05:26)
[2024-08-07] MEDS: ATIVAN 1 MG PO ×3 (08:55→22:53)
[2024-08-07] MEDS: LASIX 40 MG PO ×2 (08:55→15:34)
[2024-08-07] MEDS: INDERAL 5 MG PO (08:55)
[2024-08-07] MEDS: PROTONIX 40 MG PO (08:55)
[2024-08-07] MEDS: ELIQUIS 2.5 MG PO ×2 (08:55→22:53)
[2024-08-07] MEDS: KCL 20 MEQ PO ×2 (08:55→22:53)
[2024-08-07] MEDS: VIBRAMYCIN 100 MG PO (08:55)
[2024-08-07] MEDS: TYLENOL 1000 MG PO ×3 (08:56→23:31)
[2024-08-07] MEDS: LANOXIN 62.5 MCG PO (12:06)
--- NOTE | 2024-08-07 14:03 | W.PN.HOSP.TC ---
Today's Communication/Plan
-
CXR
Wean O2
Assessment / Plan
Assessment / Plan
88-year-old female with a fall
CVS: S1-S2 normal
Chest: Decreased at right base, left rib tenderness, rales left base
Abdomen: Soft, NT / Bowel sounds present
Extremities: No edema
Transesophageal echo 12/31/2023-normal LV size, LV systolic function, mild concentric LVH, EF 65%, normal RV size and function. Severely dilated left atrium, severely dilated right atrium, thickened calcific mitral valve leaflets. Calcific chondral
and subchondral structures. Moderate mitral annular calcification. Moderate MS. Severe MR. Bioprosthetic aortic valve functioning well. Mild eccentric AI. Mild to moderate TR.
# Fall-from bed-mechanical
History of previous fall and healing rib injury.
Patient has pain on the left lateral rib area
Patient's refusing to try tramadol, lidocaine patch or oxycodone. She wants morphine. I made her aware that we cannot keep giving her IV morphine without her trying other treatments.
# Acute hypoxic respiratory insufficiency
Was Off oxygen, now back on
Small right pleural effusion with accompanying right lower lobe consolidation-treat as pneumonia with a course of Augmentin ( Has had Zosyn in the past per pharmacy)
USS on a small amount of fluid
Speech evaluation noted. OK for regular diet
Rpt CXR
# Paroxysmal atrial fibrillation with cardioversion 12/31/2023 and also 03/11/2024
Continue digoxin, Eliquis, not on amiodarone anymore
# Anemia-check iron studies
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
She was not felt to be a candidate for MitraClip
# Hypothyroidism-continue Synthroid
# CHF-chronic HFpEF-continue Lasix with potassium
# Celiac disease diagnosed 12/25/2023 by EGD and biopsy
# Ocular migraine-on propranolol
# GERD/hiatal hernia-continue PPI
# Depression-continue Lexapro
# Chronically elevated LFTs-needs outpatient GI follow-up
# Glaucoma-continue Lumigan eyedrops
# Wet macular degeneration
# History of melanoma
# Small bowel obstruction secondary to adhesions, s/p partial small bowel resection/[facility], 03/2014 at
# DVT prophylaxis-continue Eliquis
# CODE STATUS-DNR per patient preference. Son also agrees
D/W RN
I made the patient aware that she cannot keep asking for morphine. She has to try other modalities of pain management prior to taking morphine. At this point she does not think lidocaine, tramadol or oxycodone works and is requesting morphine.
Anticipated Discharge: Within 24 hours
Subjective/Interval History
-
Date of Service: August 07, 2024
Objective Data
-
Vital Signs:
Vital Signs
Temp Pulse Resp BP Pulse Ox
97.7 F 68 16 115/68 91
08/07/24 07:00 08/07/24 12:06 08/07/24 11:00 08/07/24 11:00 08/07/24 11:00
I&O
08/06/24 08/07/24 08/08/24
06:59 06:59 06:59
Intake Total 200 / 200 740 / 740
Balance 200 / 200 740 / 740
[2024-08-07] MEDS: XALATAN OPHTHALMIC SOLUTION 1 DROP BOTH EYES (22:53)
[2024-08-07] MEDS: AUGMENTIN 875 MG/125 MG 1 TABLET PO (22:53)
[2024-08-07] MEDS: LEXAPRO 10 MG PO (22:56)
[2024-08-08 03:30] VITALS: BP 112/66
[2024-08-08 06:00] VITALS: BMI 15.9
[2024-08-08] MEDS: SYNTHROID 50 MCG PO (06:01)
--- NOTE | 2024-08-08 06:25 | W.PN.HOSP.TC ---
Today's Communication/Plan
-
cont abx
wean O2 as tolerated
pain control
PT/OT
Discharge planning SNF rehab
Assessment / Plan
Assessment / Plan
Physical Exam
General: No acute distress appears comfortable at this time
HEENT: normocephalic atraumatic hard of hearing on nasal cannula oxygen supplementation
CVS: S1-S2 normal
Chest: Decreased at right base, left rib tenderness, rales left base
Abdomen: Soft, NT / Bowel sounds present
Extremities: No edema
Neuro: Awake Alert Conversant Coherent
Psych: Calm
88-year-old female with a fall
Transesophageal echo 12/31/2023-normal LV size, LV systolic function, mild concentric LVH, EF 65%, normal RV size and function. Severely dilated left atrium, severely dilated right atrium, thickened calcific mitral valve leaflets. Calcific chondral
and subchondral structures. Moderate mitral annular calcification. Moderate MS. Severe MR. Bioprosthetic aortic valve functioning well. Mild eccentric AI. Mild to moderate TR.
# Fall-from bed-mechanical
History of previous fall and healing rib injury.
Patient has pain on the left lateral rib area
reports nausea w/ tramadol and concern w/ oversedation oxycodone.
Discussed w/ patient plan for low dose prn oxycodone and morphine for severe breakthrough pain. Patient agreeable, pain regimen updated accordingly
# Acute hypoxic respiratory insufficiency
Was Off oxygen, now back on
CXR appreciated Small right pleural effusion with accompanying right lower lobe consolidation-treat as pneumonia with a course of Augmentin ( Has had Zosyn in the past per pharmacy)
USS on a small amount of fluid
Speech evaluation noted. OK for regular diet
# Paroxysmal atrial fibrillation with cardioversion 12/31/2023 and also 03/11/2024
Continue digoxin, Eliquis, not on amiodarone anymore
# Anemia
#Iron studies appreciated Severe Iron Deficiency and likely Anemia of Chronic Disease
IV iron supplementation, to convert to oral supplementation on discharge
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
She was not felt to be a candidate for MitraClip
# Hypothyroidism-continue Synthroid
# CHF-chronic HFpEF-continue Lasix with potassium
# Celiac disease diagnosed 12/25/2023 by EGD and biopsy
# Ocular migraine-on propranolol
# GERD/hiatal hernia-continue PPI
# Depression-continue Lexapro
# Chronically elevated LFTs-needs outpatient GI follow-up
# Glaucoma-continue Lumigan eyedrops
# Wet macular degeneration
# History of melanoma
# Small bowel obstruction secondary to adhesions, s/p partial small bowel resection/[facility], 03/2014 at
# DVT prophylaxis-continue Eliquis
# CODE STATUS-DNR
I spent a total of 50 minutes with the patient or on the floor. More than 50% of this time involved counseling and coordination of care.
Anticipated Discharge: 24 - 48 hours
Subjective/Interval History
-
Date of Service: August 08, 2024
no acute distress appears comfortable at this time. Remains oxygen dependent. Continues to endorse left flank pain. Refusing tramadol, reports nausea with this medication. Refusing oxycodone due to concern oversedation.
Objective Data
-
Labs:
Laboratory Results
08/08/24
06:05
WBC Pending
Hgb Pending
Hct Pending
Plt Count Pending
Sodium Pending
Potassium Pending
Chloride Pending
Carbon Dioxide Pending
BUN Pending
Creatinine Pending
Glucose Pending
Calcium Pending
Vital Signs:
Vital Signs
Temp Pulse Resp BP Pulse Ox
97.4 F 76 16 112/66 99
08/08/24 03:30 08/08/24 03:30 08/08/24 03:30 08/08/24 03:30 08/08/24 03:30
I&O
08/06/24 08/07/24 08/08/24
06:59 06:59 06:59
Intake Total 200 / 200 740 / 740 780 / 780
Balance 200 / 200 740 / 740 780 / 780
[2024-08-08 07:00] VITALS: BP 104/21
[2024-08-08 07:32] LABS: Hematocrit 32.8 % (37.0-47.0); Hemoglobin 10.4 g/dL (12.0-16.0); Mean Corp Hgb Conc. 31.7 g/dL (33.0-37.0); Mean Corpuscular Volume 97.9 fL (81.0-99.0); Mean Platelet Volume 10.9 fL (7.4-10.4); Platelet Count 153 10^3/uL (130-400); Red Blood Cell Count 3.35 10^6/uL (4.20-5.40); Red Cell Dist. Width 15.1 % (11.5-14.5); White Blood Cell Count 4.8 10^3/uL (4.8-10.8)
[2024-08-08 07:46] LABS: Blood Urea Nitrogen 27 mg/dl (7-17); Carbon Dioxide 39 mmol/L (22-30); Chloride 95 mmol/L (98-107); Estimated Creatinine Clearance 36 ml/min; Glucose 96 mg/dl (70-99); Potassium 4.8 mmol/L (3.5-5.1); Sodium 140 mmol/L (135-145); eGFR > 60.00
[2024-08-08] MEDS: LASIX 40 MG PO ×2 (09:21→16:46)
[2024-08-08] MEDS: PROTONIX 40 MG PO (09:21)
[2024-08-08] MEDS: INDERAL 5 MG PO (09:21)
[2024-08-08] MEDS: KCL 20 MEQ PO ×2 (09:21→21:06)
[2024-08-08] MEDS: AUGMENTIN 875 MG/125 MG 1 TABLET PO ×2 (09:21→21:06)
[2024-08-08] MEDS: ATIVAN 1 MG PO ×3 (09:21→21:13)
[2024-08-08] MEDS: ELIQUIS 2.5 MG PO ×2 (09:21→21:07)
[2024-08-08] MEDS: TYLENOL 1000 MG PO ×3 (09:22→23:17)
[2024-08-08 11:00] VITALS: BP 121/67
[2024-08-08] MEDS: FERRLECIT 110 MG IV (14:51)
[2024-08-08 15:00] VITALS: BP 123/74
--- NOTE | 2024-08-08 17:20 | PTCARENOTE ---
per tele protocol pt no loner requiring tele monitoring. Sr Sheu ordered to discontinue it
[2024-08-08] MEDS: XALATAN OPHTHALMIC SOLUTION 1 DROP BOTH EYES (21:07)
[2024-08-08] MEDS: LEXAPRO 10 MG PO (21:13)
[2024-08-08 23:18] VITALS: BP 104/61
[2024-08-09] MEDS: SYNTHROID 50 MCG PO (05:38)
[2024-08-09 06:00] VITALS: BMI 16.0
--- NOTE | 2024-08-09 07:12 | W.PN.HOSP.TC ---
Today's Communication/Plan
-
cont Augmentin
wean O2 supplementation as tolerated
PT/OT
discharge planning SNF rehab
repeat CXR in AM Saturday
pain control
Encourage Incentive Spirometer use
Assessment / Plan
Assessment / Plan
Physical Exam
General: No acute distress appears comfortable at this time
HEENT: normocephalic atraumatic hard of hearing on nasal cannula oxygen supplementation
CVS: S1-S2 normal
Chest: Decreased at right base, left rib tenderness, rales/crackles left base
Abdomen: Soft, NT / Bowel sounds present
Extremities: No edema
Neuro: Awake Alert Conversant Coherent
Psych: Calm
88-year-old female with a fall
Transesophageal echo 12/31/2023-normal LV size, LV systolic function, mild concentric LVH, EF 65%, normal RV size and function. Severely dilated left atrium, severely dilated right atrium, thickened calcific mitral valve leaflets. Calcific chondral
and subchondral structures. Moderate mitral annular calcification. Moderate MS. Severe MR. Bioprosthetic aortic valve functioning well. Mild eccentric AI. Mild to moderate TR.
# Fall-from bed-mechanical
History of previous fall and healing rib injury.
Patient has pain on the left lateral rib area
On scheduled Tylenol
reports nausea w/ tramadol and concern w/ oversedation oxycodone.
Discussed w/ patient plan for low dose prn oxycodone and morphine for severe breakthrough pain. Patient agreeable, pain regimen updated accordingly. Has not required however
# Acute hypoxic respiratory insufficiency
Was Off oxygen, now back on
CXR appreciated Small right pleural effusion with accompanying right lower lobe consolidation-treat as pneumonia with a course of Augmentin ( Has had Zosyn in the past per pharmacy)
USS on a small amount of fluid
Speech evaluation noted. OK for regular diet
Repeat CXR in AM 08/10
# Paroxysmal atrial fibrillation with cardioversion 12/31/2023 and also 03/11/2024
Continue digoxin, Eliquis, not on amiodarone anymore
# Anemia
#Iron studies appreciated Severe Iron Deficiency and likely Anemia of Chronic Disease
IV iron supplementation, to convert to oral supplementation on discharge
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
She was not felt to be a candidate for MitraClip
# Hypothyroidism-continue Synthroid
# CHF-chronic HFpEF-continue Lasix with potassium
# Celiac disease diagnosed 12/25/2023 by EGD and biopsy
# Ocular migraine-on propranolol
# GERD/hiatal hernia-continue PPI
# Depression-continue Lexapro
# Chronically elevated LFTs-needs outpatient GI follow-up
# Glaucoma-continue Lumigan eyedrops
# Wet macular degeneration
# History of melanoma
# Small bowel obstruction secondary to adhesions, s/p partial small bowel resection/WES, 03/2014 at
# DVT prophylaxis-continue Eliquis
# CODE STATUS-DNR
I spent a total of 40 minutes with the patient or on the floor. More than 50% of this time involved counseling and coordination of care.
Anticipated Discharge: 24 - 48 hours
Subjective/Interval History
-
Date of Service: August 09, 2024
Patient reports pain relatively controlled at this time with scheduled Tylenol. Has not required prn oxycodone or morphine. Remains on oxygen supplementation.
Objective Data
-
Labs:
Laboratory Results
08/09/24
06:00
WBC Pending
Hgb Pending
Hct Pending
Plt Count Pending
Sodium Pending
Potassium Pending
Chloride Pending
Carbon Dioxide Pending
BUN Pending
Creatinine Pending
Glucose Pending
Calcium Pending
Vital Signs:
Vital Signs
Temp Pulse Resp BP Pulse Ox
98.3 F 82 17 104/61 97
08/08/24 23:18 08/08/24 23:18 08/08/24 23:18 08/08/24 23:18 08/08/24 15:00
I&O
08/08/24 08/09/24 08/10/24
06:59 06:59 06:59
Intake Total 900 / 900 1190 / 1190
Balance 900 / 900 1190 / 1190
[2024-08-09 07:42] LABS: Hematocrit 33.9 % (37.0-47.0); Hemoglobin 10.5 g/dL (12.0-16.0); Mean Corpuscular Hgb 30.1 pg (27.0-31.0); Mean Corpuscular Volume 97.1 fL (81.0-99.0); Mean Platelet Volume 10.4 fL (7.4-10.4); Platelet Count 167 10^3/uL (130-400); Red Blood Cell Count 3.49 10^6/uL (4.20-5.40); Red Cell Dist. Width 15.1 % (11.5-14.5); White Blood Cell Count 5.5 10^3/uL (4.8-10.8)
[2024-08-09 07:55] VITALS: BP 136/71
[2024-08-09 08:06] LABS: Blood Urea Nitrogen 21 mg/dl (7-17); Carbon Dioxide 38 mmol/L (22-30); Chloride 94 mmol/L (98-107); Estimated Creatinine Clearance 37 ml/min; Glucose 98 mg/dl (70-99); Magnesium 1.7 mg/dl (1.6-2.3); Phosphorus 3.3 mg/dl (2.5-4.5); Potassium 4.5 mmol/L (3.5-5.1); Sodium 136 mmol/L (135-145); eGFR > 60.00
[2024-08-09] MEDS: INDERAL 5 MG PO (09:22)
[2024-08-09] MEDS: TYLENOL 1000 MG PO ×3 (09:22→22:59)
[2024-08-09] MEDS: PROTONIX 40 MG PO (09:22)
[2024-08-09] MEDS: LASIX 40 MG PO ×2 (09:22→15:54)
[2024-08-09] MEDS: ATIVAN 1 MG PO ×3 (09:22→21:01)
[2024-08-09] MEDS: AUGMENTIN 875 MG/125 MG 1 TABLET PO ×2 (09:22→19:52)
[2024-08-09] MEDS: ELIQUIS 2.5 MG PO ×2 (09:22→19:52)
[2024-08-09] MEDS: KCL 20 MEQ PO ×2 (09:22→19:53)
--- NOTE | 2024-08-09 13:13 | CM ---
Addendum entered by Celia Jones 08/09/24 13:39:
Per Hospitalist, patient will be made inpatient status. Family aware, requesting referrals to [facility], [facility], and [facility].
Original Note:
CM met with patient and daughter bedside. CM discussed recommendations of SNF, [facility], would be private pay for SNF. Daughter reports patient cannot afford to private pay, inquiring if patient meets inpatient
criteria, TT to Hospitalist for update. Family reports patient has not been to rehab in the past, patient is agreeable to SNF. CM will continue to follow for all discharge planning needs.
Plan; SNF recommendation, unable to afford private pay.
[2024-08-09] MEDS: FERRLECIT 110 MG IV (14:40)
[2024-08-09 15:28] VITALS: BP 102/62
[2024-08-09] MEDS: XALATAN OPHTHALMIC SOLUTION 1 DROP BOTH EYES (21:01)
[2024-08-09] MEDS: LEXAPRO 10 MG PO (21:01)
[2024-08-09 22:57] VITALS: BP 117/71
[2024-08-09] MEDS: MORPHINE SULFATE 1 MG IV (23:50)
[2024-08-10 06:00] VITALS: BMI 15.5
[2024-08-10] MEDS: SYNTHROID 50 MCG PO (06:23)
--- NOTE | 2024-08-10 06:28 | W.PN.HOSP.TC ---
Today's Communication/Plan
-
cont abx
pain control, oxycodone as needed to be attempted first before providing morphine for severe breakthrough pain if still necessary
encourage incentive spirometer
wean O2 as tolerated
cont PT/OT
Assessment / Plan
Assessment / Plan
Physical Exam
General: No acute distress appears comfortable at this time
HEENT: normocephalic atraumatic hard of hearing on nasal cannula oxygen supplementation
CVS: S1-S2 normal
Chest: Decreased at right base, left rib tenderness, rales/crackles left base
Abdomen: Soft, NT / Bowel sounds present
Extremities: No edema
Neuro: Awake Alert Conversant Coherent
Psych: Calm
88-year-old female with a fall
Transesophageal echo 12/31/2023-normal LV size, LV systolic function, mild concentric LVH, EF 65%, normal RV size and function. Severely dilated left atrium, severely dilated right atrium, thickened calcific mitral valve leaflets. Calcific chondral
and subchondral structures. Moderate mitral annular calcification. Moderate MS. Severe MR. Bioprosthetic aortic valve functioning well. Mild eccentric AI. Mild to moderate TR.
# Fall-from bed-mechanical
History of previous fall and healing rib injury.
Patient has pain on the left lateral rib area
On scheduled Tylenol
reports nausea w/ tramadol and concern w/ oversedation oxycodone.
cont low dose prn oxycodone and morphine for severe breakthrough pain (oxycodone to be attempted first before providing morphine)
# Acute hypoxic respiratory insufficiency
Was Off oxygen, now back on
CXR appreciated Small right pleural effusion with accompanying right lower lobe consolidation-treat as pneumonia with a course of Augmentin ( Has had Zosyn in the past per pharmacy)
USS on a small amount of fluid
Speech evaluation noted. OK for regular diet
Repeat CXR in AM 08/10 Mon
# Paroxysmal atrial fibrillation with cardioversion 12/31/2023 and also 03/11/2024
Continue digoxin, Eliquis, not on amiodarone anymore
# Anemia
#Iron studies appreciated Severe Iron Deficiency and likely Anemia of Chronic Disease
IV iron supplementation, to convert to oral supplementation on discharge
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
She was not felt to be a candidate for MitraClip
# Hypothyroidism-continue Synthroid
# CHF-chronic HFpEF-continue Lasix with potassium
# Celiac disease diagnosed 12/25/2023 by EGD and biopsy
# Ocular migraine-on propranolol
# GERD/hiatal hernia-continue PPI
# Depression-continue Lexapro
# Chronically elevated LFTs-needs outpatient GI follow-up
# Glaucoma-continue Lumigan eyedrops
# Wet macular degeneration
# History of melanoma
# Small bowel obstruction secondary to adhesions, s/p partial small bowel resection/WES, 03/2014 at
# DVT prophylaxis-continue Eliquis
# CODE STATUS-DNR
discussed with patient and patient's son Espinoza.
I spent a total of 40 minutes with the patient or on the floor. More than 50% of this time involved counseling and coordination of care.
Anticipated Discharge: 24 - 48 hours
Subjective/Interval History
-
Date of Service: August 10, 2024
No acute distress appears comfortable. stable respiratory status though remains on 2L NC.
Objective Data
-
Labs:
Laboratory Results
08/10/24
06:19
WBC Pending
Hgb Pending
Hct Pending
Plt Count Pending
Sodium Pending
Potassium Pending
Chloride Pending
Carbon Dioxide Pending
BUN Pending
Creatinine Pending
Glucose Pending
Calcium Pending
Vital Signs:
Vital Signs
Temp Pulse Resp BP Pulse Ox
98.3 F 80 18 117/71 100
08/09/24 22:57 08/09/24 22:57 08/09/24 22:57 08/09/24 22:57 08/09/24 22:57
I&O
08/08/24 08/09/24 08/10/24
06:59 06:59 06:59
Intake Total 900 / 900 1190 / 1190 270 / 270
Balance 900 / 900 1190 / 1190 270 / 270
[2024-08-10 07:00] VITALS: BP 125/75
[2024-08-10 07:30] LABS: Hemoglobin 10.6 g/dL (12.0-16.0); Mean Corp Hgb Conc. 31.2 g/dL (33.0-37.0); Mean Corpuscular Hgb 29.4 pg (27.0-31.0); Mean Corpuscular Volume 94.4 fL (81.0-99.0); Mean Platelet Volume 10.3 fL (7.4-10.4); Platelet Count 183 10^3/uL (130-400); Red Cell Dist. Width 15.1 % (11.5-14.5); White Blood Cell Count 4.6 10^3/uL (4.8-10.8)
[2024-08-10 08:52] LABS: Blood Urea Nitrogen 18 mg/dl (7-17); Calcium 9.3 mg/dl (8.4-10.2); Carbon Dioxide 39 mmol/L (22-30); Chloride 91 mmol/L (98-107); Estimated Creatinine Clearance 31 ml/min; Glucose 86 mg/dl (70-99); Magnesium 1.7 mg/dl (1.6-2.3); Phosphorus 3.7 mg/dl (2.5-4.5); Potassium 4.8 mmol/L (3.5-5.1); Sodium 138 mmol/L (135-145); eGFR > 60.00
[2024-08-10] MEDS: KCL 20 MEQ PO ×2 (08:53→20:57)
[2024-08-10] MEDS: PROTONIX 40 MG PO (08:53)
[2024-08-10] MEDS: INDERAL 5 MG PO (08:54)
[2024-08-10] MEDS: AUGMENTIN 875 MG/125 MG 1 TABLET PO ×2 (08:54→20:57)
[2024-08-10] MEDS: LASIX 40 MG PO ×2 (08:54→15:07)
[2024-08-10] MEDS: TYLENOL 1000 MG PO ×3 (08:55→23:32)
[2024-08-10] MEDS: ELIQUIS 2.5 MG PO ×2 (08:55→20:57)
[2024-08-10] MEDS: ATIVAN 1 MG PO ×3 (09:30→22:01)
[2024-08-10] MEDS: LANOXIN 62.5 MCG PO (13:16)
[2024-08-10] MEDS: FERRLECIT 110 MG IV (13:18)
[2024-08-10] MEDS: MORPHINE SULFATE 1 MG IV (13:19)
[2024-08-10 15:00] VITALS: BP 120/79
[2024-08-10 16:38] VITALS: BP 135/75; PULSE 82; O2SAT 95
[2024-08-10] MEDS: XALATAN OPHTHALMIC SOLUTION 1 DROP BOTH EYES (22:01)
[2024-08-10] MEDS: LEXAPRO 10 MG PO (22:01)
[2024-08-10 23:30] VITALS: BP 123/69
[2024-08-11] MEDS: SYNTHROID 50 MCG PO (05:21)
[2024-08-11 06:00] VITALS: BMI 15.3
--- NOTE | 2024-08-11 07:45 | W.PN.HOSP.TC ---
Today's Communication/Plan
-
Medically stable for discharge pending snf rehab placement
Assessment / Plan
Assessment / Plan
Physical Exam
General: No acute distress appears comfortable at this time
HEENT: normocephalic atraumatic hard of hearing
CVS: S1-S2 normal
Chest: Decreased at right base, left rib tenderness, rales/crackles left base, stable respiratory status on room air
Abdomen: Soft, NT / Bowel sounds present
Extremities: No edema
Neuro: Awake Alert Conversant Coherent
Psych: Calm
88-year-old female with a fall
Transesophageal echo 12/31/2023-normal LV size, LV systolic function, mild concentric LVH, EF 65%, normal RV size and function. Severely dilated left atrium, severely dilated right atrium, thickened calcific mitral valve leaflets. Calcific chondral
and subchondral structures. Moderate mitral annular calcification. Moderate MS. Severe MR. Bioprosthetic aortic valve functioning well. Mild eccentric AI. Mild to moderate TR.
# Fall-from bed-mechanical
History of previous fall and healing rib injury.
Patient has pain on the left lateral rib area
On scheduled Tylenol
reports nausea w/ tramadol and concern w/ oversedation oxycodone.
cont low dose prn oxycodone and morphine for severe breakthrough pain (oxycodone to be attempted first before providing morphine)
# Acute hypoxic respiratory insufficiency
CXR appreciated Small right pleural effusion with accompanying right lower lobe consolidation-treat as pneumonia with a course of Augmentin ( Has had Zosyn in the past per pharmacy)
USS on a small amount of fluid
Speech evaluation noted. OK for regular diet
Repeat CXR in AM 08/10 Mon appreciated:
1. Mild cardiomegaly. Mild cephalization of the pulmonary vasculature suggestive of mild pulmonary vascular congestion.
2. Small bilateral pleural effusions.
3. Hazy opacities at each lung base, suggestive of pneumonia or subsegmental atelectasis.
encourage incentive spirometer use
weaned off oxygen supplementation on room air stable respiratory status
08/12 last day of Augment for 5 days treatment
# Paroxysmal atrial fibrillation with cardioversion 12/31/2023 and also 03/11/2024
Continue digoxin, Eliquis, not on amiodarone anymore
# Anemia
#Iron studies appreciated Severe Iron Deficiency and likely Anemia of Chronic Disease
IV iron supplementation x3, converted to oral iron to continue on discharge
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
She was not felt to be a candidate for MitraClip
# Hypothyroidism-continue Synthroid
# CHF-chronic HFpEF-continue Lasix with potassium
# Celiac disease diagnosed 12/25/2023 by EGD and biopsy
# Ocular migraine-on propranolol
# GERD/hiatal hernia-continue PPI
# Depression-continue Lexapro
# Chronically elevated LFTs-needs outpatient GI follow-up
# Glaucoma-continue Lumigan eyedrops
# Wet macular degeneration
# History of melanoma
# Small bowel obstruction secondary to adhesions, s/p partial small bowel resection/WES, 03/2014 at
# DVT prophylaxis-continue Eliquis
# CODE STATUS-DNR
Medically stable for discharge SNF rehab pending placement
discussed with patient and patient's son Rich.
I spent a total of 40 minutes with the patient or on the floor. More than 50% of this time involved counseling and coordination of care.
Anticipated Discharge: Within 24 hours
Subjective/Interval History
-
Date of Service: August 11, 2024
weaned off oxygen supplementation. stable respiratory status on room air.
Objective Data
-
Labs:
Laboratory Results
08/11/24
07:38
WBC Pending
Hgb Pending
Hct Pending
Plt Count Pending
Sodium Pending
Potassium Pending
Chloride Pending
Carbon Dioxide Pending
BUN Pending
Creatinine Pending
Glucose Pending
Calcium Pending
Vital Signs:
Vital Signs
Temp Pulse Resp BP Pulse Ox
97.6 F 86 16 123/69 99
08/10/24 23:30 08/10/24 23:30 08/10/24 23:30 08/10/24 23:30 08/11/24 03:32
I&O
08/10/24 08/11/24 08/12/24
06:59 06:59 06:59
Intake Total 270 / 270 720 / 720
Balance 270 / 270 720 / 720
[2024-08-11 08:12] LABS: Hematocrit 31.8 % (37.0-47.0); Mean Corp Hgb Conc. 31.4 g/dL (33.0-37.0); Mean Corpuscular Hgb 29.7 pg (27.0-31.0); Mean Corpuscular Volume 94.4 fL (81.0-99.0); Mean Platelet Volume 10.4 fL (7.4-10.4); Platelet Count 175 10^3/uL (130-400); Red Blood Cell Count 3.37 10^6/uL (4.20-5.40); White Blood Cell Count 3.9 10^3/uL (4.8-10.8)
[2024-08-11 09:08] LABS: Blood Urea Nitrogen 16 mg/dl (7-17); Calcium 9.3 mg/dl (8.4-10.2); Carbon Dioxide 38 mmol/L (22-30); Chloride 92 mmol/L (98-107); Estimated Creatinine Clearance 35 ml/min; Glucose 94 mg/dl (70-99); Magnesium 1.7 mg/dl (1.6-2.3); Phosphorus 3.8 mg/dl (2.5-4.5); Potassium 4.8 mmol/L (3.5-5.1); Sodium 137 mmol/L (135-145); eGFR > 60.00
[2024-08-11] MEDS: AUGMENTIN 875 MG/125 MG 1 TABLET PO ×2 (09:29→20:34)
[2024-08-11] MEDS: TYLENOL 1000 MG PO ×3 (09:29→23:06)
[2024-08-11] MEDS: LASIX 40 MG PO ×2 (09:30→15:44)
[2024-08-11] MEDS: KCL 20 MEQ PO ×2 (09:30→20:34)
[2024-08-11] MEDS: ATIVAN 1 MG PO ×3 (09:30→22:15)
[2024-08-11] MEDS: PROTONIX 40 MG PO (09:30)
[2024-08-11] MEDS: ELIQUIS 2.5 MG PO ×2 (09:30→20:34)
[2024-08-11] MEDS: INDERAL 5 MG PO (09:31)
[2024-08-11 09:44] VITALS: BP 129/71
--- NOTE | 2024-08-11 12:13 | CM ---
Addendum entered by Rosario Austin 08/11/24 16:34:
Patient gave verbal permission to speak with jesus Davis.
Daughter Susan phone number [phone].
Addendum entered by Rosario Austin 08/11/24 14:37:
TT from [facility], accepted for skilled rehab tomorrow.
Per MD tentative d/c tomorrow.
Per TC to son, acceptable facility. VM left for jesus Davis.
[facility]
Report# [phone]

Original Note:
Spoke with patient bedside re skilled facilities.
Patient agreeable to [facility], however patient asked me to speak with jesus Davis.
Susan would like CM to reach out to [facility], [facility] and [facility]. (referrals placed with no response)
TC to [facility], no beds.
TC to [facility] they will look for bed availability for tomorrow.
Left VM with [facility].
Plan: Skilled rehab once medically stable and bed available.
[2024-08-11] MEDS: MORPHINE SULFATE 1 MG IV ×2 (12:29→23:12)
[2024-08-11] MEDS: FEOSOL 325 MG PO (12:30)
[2024-08-11 15:00] VITALS: BP 105/61
[2024-08-11 19:09] VITALS: BP 112/63
[2024-08-11] MEDS: XALATAN OPHTHALMIC SOLUTION 1 DROP BOTH EYES (22:16)
[2024-08-11] MEDS: LEXAPRO 10 MG PO (22:16)
[2024-08-11 23:32] VITALS: BP 119/66
--- NOTE | 2024-08-11 23:47 | PTCARENOTE ---
Patient stating 25/ 10 pain to left ribs and refusing to take Oxycodone. call specialist [employer] [employer] notified and aware that IV Morphine given for pain.
[2024-08-12 06:00] VITALS: BMI 15.9
[2024-08-12] MEDS: SYNTHROID 50 MCG PO (06:05)
[2024-08-12 06:58] LABS: Hemoglobin 10.6 g/dL (12.0-16.0); Mean Corp Hgb Conc. 32.1 g/dL (33.0-37.0); Mean Corpuscular Hgb 30.9 pg (27.0-31.0); Mean Corpuscular Volume 96.2 fL (81.0-99.0); Mean Platelet Volume 10.3 fL (7.4-10.4); Platelet Count 180 10^3/uL (130-400); Red Blood Cell Count 3.43 10^6/uL (4.20-5.40); Red Cell Dist. Width 15.3 % (11.5-14.5); White Blood Cell Count 4.7 10^3/uL (4.8-10.8)
[2024-08-12 07:23] LABS: Blood Urea Nitrogen 20 mg/dl (7-17); Calcium 9.6 mg/dl (8.4-10.2); Carbon Dioxide 38 mmol/L (22-30); Chloride 92 mmol/L (98-107); Estimated Creatinine Clearance 36 ml/min; Glucose 106 mg/dl (70-99); Magnesium 1.8 mg/dl (1.6-2.3); Phosphorus 3.5 mg/dl (2.5-4.5); Sodium 137 mmol/L (135-145); eGFR > 60.00
[2024-08-12 07:29] LABS: Potassium 4.4 mmol/L (3.5-5.1)
--- NOTE | 2024-08-12 08:54 | PN.CDI ---
CDI
- -
CDI:
Physician Documentation Request
Admit Date: 08/09/24 13:45
Dear Doctor Vincent,
08/06- assessment/notes states 'BMI assessment underweight (<18.5)... Patient meets ASPEN criteria for severe protein calorie malnutrition of chronic illness due to the loss of over 20% BW over the past year and due to muscle loss at the
clavicle and at the temporal locations.... Muscle loss over clavicle severe, Temporal severe '
Based on the above information and your assessment, which of the following most accurately represents the patient's nutritional status?
Severe protein calorie malnutrition
Other (please specify)
[place] Criteria ([facility] Hospitalist 2017)
2 or more criteria must be present for either
non severe or severe malnutrition
Note that the criteria differs related to the
presence of an acute or chronic illness
Acute Illness Chronic Illness
Energy Intake Non Severe: <75% for >7 days Non Severe: <75% for >1 month
Severe: <50% for >5 days Severe: <75% for >1 month
Weight Loss Non Severe: 1-2% over 1 week Non Severe: 5% over 1 month
5% over 1 month 7.5% over 3 months
7.5% over 3 months 10% over 6 months
1 year N/A 20% over 1 year
Severe: >2% over 1 week Severe: >5% over 1 month
>5% over 1 month >7.5% over 3 months
>7.5% over 3 months >10% over 6 months
1 year N/A >20% over 1 year
Body Fat Non Severe: Mild Decrease Non Severe: Mild Loss
Severe: Moderate Decrease Severe: Severe Loss
Muscle Mass Non Severe: Mild Decrease Non Severe: Mild Loss
Severe: Moderate Decrease Severe: Severe Loss
Fluid Accumulation Non Severe: Mild Accumulation Non Severe: Mild Accumulation
Severe: Moderate to severe Severe: Moderate to severe
accumulation accumulation
Reduced Life Manager Strength Non Severe: N/A Non Severe: N/A
Severe: Measurably reduced Severe: Measurably reduced
Use of terms such as suspected, likely, concern for, or probable (associated with a specific diagnosis that is being evaluated, monitored, or treated as if it exists) are acceptable and can be coded in the inpatient setting, when documented at the
time of discharge.
Thank you,
Lindsey Stevenson RN, BSN
CDI Specialist
tiger text
Please use your independent medical judgment in providing your response.
[2024-08-12] MEDS: PROTONIX 40 MG PO (08:59)
[2024-08-12] MEDS: ELIQUIS 2.5 MG PO ×2 (08:59→20:10)
[2024-08-12] MEDS: INDERAL 5 MG PO (09:00)
[2024-08-12] MEDS: KCL 20 MEQ PO ×2 (09:00→20:10)
[2024-08-12] MEDS: TYLENOL 1000 MG PO (09:00)
[2024-08-12] MEDS: AUGMENTIN 875 MG/125 MG 1 TABLET PO ×2 (09:00→20:10)
[2024-08-12] MEDS: FEOSOL 325 MG PO (09:00)
[2024-08-12] MEDS: LASIX 40 MG PO ×2 (09:01→15:33)
[2024-08-12] MEDS: ATIVAN 1 MG PO ×3 (09:02→21:54)
--- NOTE | 2024-08-12 09:20 | W.PN.HOSP.TC ---
Today's Communication/Plan
-
Discharge SNF rehab held d/t uncontrolled pain (still requiring IV pain med) and fail
cont pain control
fall precautions
wean O2 as tolerated
PT/OT
Assessment / Plan
Assessment / Plan
Physical Exam
General: No acute distress appears comfortable at this time
HEENT: normocephalic atraumatic hard of hearing
CVS: S1-S2 normal
Chest: Decreased at right base, left rib tenderness, rales/crackles left base, stable respiratory status on room air
Abdomen: Soft, NT / Bowel sounds present
Extremities: No edema
Neuro: Awake Alert Conversant Coherent
Psych: Calm
88-year-old female with a fall
Transesophageal echo 12/31/2023-normal LV size, LV systolic function, mild concentric LVH, EF 65%, normal RV size and function. Severely dilated left atrium, severely dilated right atrium, thickened calcific mitral valve leaflets. Calcific chondral
and subchondral structures. Moderate mitral annular calcification. Moderate MS. Severe MR. Bioprosthetic aortic valve functioning well. Mild eccentric AI. Mild to moderate TR.
# Fall-from bed-mechanical
#Fall 08/12/24 fell from bed attempting to reach her phone and distant table.
CT head and left ribs X-ray noted not acute abn's
History of previous fall and healing rib injury.
Patient has pain on the left lateral rib area, lidocaine patch applied
On scheduled Tylenol
reports nausea w/ tramadol and concern w/ oversedation oxycodone.
cont low dose prn oxycodone and morphine for severe breakthrough pain (oxycodone to be attempted first before providing morphine)
# Acute hypoxic respiratory insufficiency
CXR appreciated Small right pleural effusion with accompanying right lower lobe consolidation-treat as pneumonia with a course of Augmentin ( Has had Zosyn in the past per pharmacy)
USS on a small amount of fluid
Speech evaluation noted. OK for regular diet
Repeat CXR in AM 08/10 Mon appreciated:
1. Mild cardiomegaly. Mild cephalization of the pulmonary vasculature suggestive of mild pulmonary vascular congestion.
2. Small bilateral pleural effusions.
3. Hazy opacities at each lung base, suggestive of pneumonia or subsegmental atelectasis.
encourage incentive spirometer use
weaned off oxygen supplementation on room air stable respiratory status
08/12 last day of Augment for 5 days treatment
# Paroxysmal atrial fibrillation with cardioversion 12/31/2023 and also 03/11/2024
Continue digoxin, Eliquis, not on amiodarone anymore
# Anemia
#Iron studies appreciated Severe Iron Deficiency and likely Anemia of Chronic Disease
IV iron supplementation x3, converted to oral iron to continue on discharge
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
She was not felt to be a candidate for MitraClip
# Hypothyroidism-continue Synthroid
# CHF-chronic HFpEF-continue Lasix with potassium
# Celiac disease diagnosed 12/25/2023 by EGD and biopsy
# Ocular migraine-on propranolol
# GERD/hiatal hernia-continue PPI
# Depression-continue Lexapro
# Chronically elevated LFTs-needs outpatient GI follow-up
# Glaucoma-continue Lumigan eyedrops
# Wet macular degeneration
# History of melanoma
# Small bowel obstruction secondary to adhesions, s/p partial small bowel resection/WES, 03/2014 at
# DVT prophylaxis-continue Eliquis
# CODE STATUS-DNR
discussed with patient and patient's son Rich.
I spent a total of 40 minutes with the patient or on the floor. More than 50% of this time involved counseling and coordination of care.
Anticipated Discharge: Within 24 hours
Subjective/Interval History
-
Date of Service: August 12, 2024
No acute distress. Back on nasal cannula. Had a fall while reaching for her phone on distant table.
Objective Data
-
Labs:
Laboratory Results
08/12/24
06:23
WBC 4.7 L
Hgb 10.6 L
Hct 33.0 L
Plt Count 180
Sodium 137
Potassium 4.4
Chloride 92 L
Carbon Dioxide 38 H
BUN 20 H
Creatinine 0.7
Glucose 106 H
Calcium 9.6
Vital Signs:
Vital Signs
Temp Pulse Resp BP Pulse Ox
98.0 F 86 16 119/66 95
08/11/24 23:32 08/11/24 23:32 08/11/24 23:32 08/11/24 23:32 08/11/24 23:32
I&O
08/11/24 08/12/24 08/13/24
06:59 06:59 06:59
Intake Total 720 / 720 1200 / 1200
Balance 720 / 720 1200 / 1200
--- NOTE | 2024-08-12 09:41 | CM ---
Per MD, pt can d/c tomorrow once transition to oral pain medication. Pt cont. IV morphine
CM spoke w/ daughter, Susan to update. Susan confirmed pt will need WC van for transport, agreeable to out of pocket payment. Acute Care phone number provided.
Transport form on chart.
CM updated [facility], agreeable to accept pt tomorrow
Pt updated at bedside
[facility]
Report# [phone]

Plan: [facility] via wheelchair van
[2024-08-12] MEDS: ROXICODONE 2.5 MG PO (11:30)
[2024-08-12] MEDS: LIDOCAINE 4% PATCH 1 PATCH TOPICAL (11:31)
[2024-08-12] MEDS: LANOXIN 62.5 MCG PO (11:33)
[2024-08-12 12:50] VITALS: BP 118/70
--- NOTE | 2024-08-12 13:24 | PTCARENOTE ---
Called to room by PCT , patient laying on floor on left side of her body, stated she 'was trying to get her cell phone' (cell phone noted to be on her bedside table) . Patient suffered small skin tear right calf, otherwise no injury. Assisted
into chair . Hospitalist notified and in to examine. Chair alarm intact.
--- NOTE | 2024-08-12 13:44 | WOUNDNOTE ---
WOC RN NOTE: WC consulted for right kolb tear. Spoke to SHOSHANA Maynard who already applied steri strips to well approximated wound. Contacted hospitalist to cancel consult.
[2024-08-12 14:55] VITALS: O2SAT 99
[2024-08-12 15:20] VITALS: BP 115/57
[2024-08-12] MEDS: LEXAPRO 10 MG PO (21:54)
[2024-08-12] MEDS: XALATAN OPHTHALMIC SOLUTION 1 DROP BOTH EYES (21:55)
[2024-08-12 23:00] VITALS: BP 139/70
[2024-08-12] MEDS: TYLENOL PO (23:39)
[2024-08-13] MEDS: SYNTHROID 50 MCG PO (05:56)
[2024-08-13 06:00] VITALS: BMI 15.3
--- NOTE | 2024-08-13 07:24 | W.PN.HOSP.TC ---
Addendum entered and electronically signed by Deshaun Kaur MD 08/14/24 07:54:
Severe protein calorie malnutrition
Original Note:
Today's Communication/Plan
-
discharge
Assessment / Plan
Assessment / Plan
Physical Exam
General: No acute distress appears comfortable at this time, frail, cachectic
HEENT: normocephalic atraumatic hard of hearing
CVS: S1-S2 normal
Chest: Clear to auscultation, left rib tenderness, stable respiratory status on 2L nasal cannula
Abdomen: Soft, NT / Bowel sounds present
Extremities: No edema
Neuro: Awake Alert Conversant Coherent
Psych: Calm
88-year-old female with a fall
Transesophageal echo 12/31/2023-normal LV size, LV systolic function, mild concentric LVH, EF 65%, normal RV size and function. Severely dilated left atrium, severely dilated right atrium, thickened calcific mitral valve leaflets. Calcific chondral
and subchondral structures. Moderate mitral annular calcification. Moderate MS. Severe MR. Bioprosthetic aortic valve functioning well. Mild eccentric AI. Mild to moderate TR.
# Fall-from bed-mechanical
#Fall 08/12/24 fell from bed attempting to reach her phone and distant table.
CT head and left ribs X-ray noted not acute abn's
History of previous fall and healing rib injury.
Patient has pain on the left lateral rib area, lidocaine patch applied
On scheduled Tylenol
reports nausea w/ tramadol and concern w/ oversedation oxycodone.
cont low dose prn oxycodone and morphine for severe breakthrough pain (oxycodone to be attempted first before providing morphine)
patient tolerating 2.5 mg oxycodone prn well
# Acute hypoxic respiratory insufficiency
CXR appreciated Small right pleural effusion with accompanying right lower lobe consolidation-treat as pneumonia with a course of Augmentin ( Has had Zosyn in the past per pharmacy)
USS on a small amount of fluid
Speech evaluation noted. OK for regular diet
Repeat CXR in AM 08/10 Mon appreciated:
1. Mild cardiomegaly. Mild cephalization of the pulmonary vasculature suggestive of mild pulmonary vascular congestion.
2. Small bilateral pleural effusions.
3. Hazy opacities at each lung base, suggestive of pneumonia or subsegmental atelectasis.
encourage incentive spirometer use
intermittently weaned off oxygen supplementation, remains dependent 2L on discharge.
completed 5 days Augmentin
# Paroxysmal atrial fibrillation with cardioversion 12/31/2023 and also 03/11/2024
Continue digoxin, Eliquis, not on amiodarone anymore
# Anemia
#Iron studies appreciated Severe Iron Deficiency and likely Anemia of Chronic Disease
IV iron supplementation x3, converted to oral iron to continue on discharge
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
She was not felt to be a candidate for MitraClip
# Hypothyroidism-continue Synthroid
# CHF-chronic HFpEF-continue Lasix with potassium
# Celiac disease diagnosed 12/25/2023 by EGD and biopsy
# Ocular migraine-on propranolol
# GERD/hiatal hernia-continue PPI
# Depression-continue Lexapro
# Chronically elevated LFTs-needs outpatient GI follow-up
# Glaucoma-continue Lumigan eyedrops
# Wet macular degeneration
# History of melanoma
# Small bowel obstruction secondary to adhesions, s/p partial small bowel resection/WES, 03/2014 at
# DVT prophylaxis-continue Eliquis
# CODE STATUS-DNR
Medically stable for discharge SNF rehab with outpatient follow up recommendations.
discussed with patient and patient's son Espinoza
Total Time Preparing Discharge __40 minutes including examination of the patient, summary of the hospital stay, instructions for continuing care to all relevant caregivers; and preparation of discharge records, prescriptions, and referral
forms if necessary.
Anticipated Discharge: Today
Subjective/Interval History
-
Date of Service: August 13, 2024
Seen and examined at bedside in no acute distress resting comfortably in bed. Remains dependent on oxygen albeit low dose 2L. Continues to endorse left sided ribs pain tolerable with current oral pain regimen.
Objective Data
-
Vital Signs:
Vital Signs
Temp Pulse Resp BP Pulse Ox
98.9 F 71 18 139/70 96
08/12/24 23:00 08/12/24 23:00 08/12/24 23:00 08/12/24 23:00 08/12/24 23:00
I&O
08/12/24 08/13/24 08/14/24
06:59 06:59 06:59
Intake Total 1200 / 1200 1200 / 1200
Balance 1200 / 1200 1200 / 1200
[2024-08-13 07:35] VITALS: BP 123/74
[2024-08-13] MEDS: ATIVAN 1 MG PO ×2 (11:02→16:27)
[2024-08-13] MEDS: ROXICODONE 2.5 MG PO ×2 (11:05→17:04)
[2024-08-13] MEDS: LIDOCAINE 4% PATCH 1 PATCH TOPICAL (11:06)
[2024-08-13] MEDS: PROTONIX 40 MG PO (11:06)
[2024-08-13] MEDS: FEOSOL 325 MG PO (11:07)
[2024-08-13] MEDS: KCL 20 MEQ PO (11:07)
[2024-08-13] MEDS: ELIQUIS 2.5 MG PO (11:07)
[2024-08-13] MEDS: TYLENOL 1000 MG PO ×2 (11:07→16:27)
[2024-08-13] MEDS: LASIX 40 MG PO ×2 (11:07→16:28)
--- NOTE | 2024-08-13 14:13 | W.DCSUMMARY ---
Discharge Summary
Discharge Data
Date of Admission: 08/09/24
Date of Discharge: 08/13/24
-
Pending Results: No
Discharge Plan
-
Patient Disposition: Fdc/SNF
Discharge Diagnosis/Procedures: Mechanical Fall
Acute Hypoxic Respiratory Insufficiency (requires 2L Oxygen supplementation at this time)
Pneumonia
Paroxysmal atrial fibrillation
Anemia
Severe Iron Deficiency and likely Anemia of Chronic Disease
Valvular heart disease-history of bioprosthetic aortic valve replacement
Severe mitral regurgitation
Hypothyroidism
Heart Failure with Preserved Ejection Fraction
Celiac disease
Ocular migraine
GERD/hiatal hernia
Depression
Persistent Mild Transaminitis
Glaucoma
Wet macular degeneration
History of melanoma
History partial small bowel resection due to small bowel obstruction
Condition: Fair
Diet: Other diet
Additional Diets: Gluten Free Diet
Activity: As tolerated
Driving Restrictions: No driving
Bathing Restrictions: None
Blood Work: Repeat CBC and CMP with primary care provider in 1 week of discharge.
Iron studies with primary care provider in 1 month of discharge.
Others Tests: Repeat CXR with primary care provider in 1 month of discharge.
Other Services: PT and OT
Activity Restrictions/Additional Instructions:
Please follow up with primary care provider in 1 week of discharge and GI in 1 month of discharge.
Iron prescribed for iron deficiency.
Oxycodone prescribed as needed for moderate to severe pain
Laxative as needed also prescribed.
Please take medications as prescribed/recommended and follow up with primary care provider and/or other healthcare provider involved in your care for refills and/or further adjustment to your medication regimen as necessary.
Referrals:
Enrrique Montana DO [Family Provider] - in one week
Natalio Buckley MD [Active] - in one month
Prescriptions:
New
ferrous sulfate [FeroSul] 325 mg (65 mg iron) Tablet
325 mg PO DAILY 30 Days Qty: 30 0RF
lidocaine 4 % Adhesive Patch,Medicated
1 patch topical DAILY Qty: 10 0RF
Rx Instructions:
left ribs pain
sennosides-docusate sodium 8.6-50 mg Tablet
1 tab PO BID PRN (Reason: Constipation) Qty: 14 0RF
oxycodone 5 mg Tablet
2.5 mg PO BIDPRN PRN (Reason: mod severe pain) Qty: 5 0RF
Continued
propranolol 10 MG tablet
5 mg PO DAILY
lorazepam 1 MG tablet
1 mg PO TID
furosemide 40 MG tablet
40 mg PO BID
potassium chloride 20 mEq tablet extended release
20 meq PO BID
omeprazole 20 mg capsule,delayed release(DR/EC)
20 mg PO DAILY
levothyroxine [Synthroid] 50 mcg tablet
50 mcg PO DAILY@0600
Lumigan 0.01 % Drops
1 drp BOTH EYES HS
digoxin 62.5 mcg (0.0625 mg) Tablet
62.5 mcg PO MOWEFR
escitalopram oxalate [Lexapro] 10 mg Tablet
10 mg PO HS
acetaminophen [Tylenol] 325 mg Tablet
650 mg PO Q6HPRN PRN (Reason: headaches)
Eliquis 2.5 mg tablet
2.5 mg PO BID
Discharge Orders:
Discharge Patient (As Directed); Ordered 08/13/24
Ordered By: Deshaun Kaur
Discharge Date and Time
Print Language: POLISH
--- NOTE | 2024-08-13 14:42 | CM ---
Per hospitalist, pt can d/c to SNF. Will d/c w/ O2
Pt will transport via ambulance- Currently 2L O2
Transport scheduled w/ 5:30/6pm hand picker time
CM spoke w/ daughter to update
CM updated [facility]
IMM reviewed, pt given copy. Copy placed into chart
[facility]
Report# [phone]

Plan: [facility] via ambulance
[2024-08-13 15:20] VITALS: BP 119/60
[2024-08-13] MEDS: INDERAL 5 MG PO (16:27)
== END 2024-08-13 18:55 | DRG 193 ==
LOC: 4 WEST ACU 13:45
PROVIDERS: ADMITTING PHYSICIAN Hospitalist; ATTENDING PHYSICIAN Internal Medicine; EMERGENCY PHYSICIAN Student in an Organized Health Care Education/Training Program; FAMILY PHYSICIAN Family Medicine
DX: J18.9 Pneumonia, unspecified organism (principal); E43 Unspecified severe protein-calorie malnutrition; I50.32 Chronic diastolic (congestive) heart failure; K56.50 Intestinal adhesions [bands], unspecified as to partial versus complete obstruction; Z68.1 Body mass index [BMI] 19.9 or less, adult; R06.89 Other abnormalities of breathing; R09.02 Hypoxemia; I48.0 Paroxysmal atrial fibrillation; D63.8 Anemia in other chronic diseases classified elsewhere; E03.9 Hypothyroidism, unspecified; G43.109 Migraine with aura, not intractable, without status migrainosus; K21.9 Gastro-esophageal reflux disease without esophagitis; K44.9 Diaphragmatic hernia without obstruction or gangrene; F32.A Depression, unspecified; H40.9 Unspecified glaucoma; H35.3290 Exudative age-related macular degeneration, unspecified eye, stage unspecified; Z79.01 Long term (current) use of anticoagulants
CPT/HCPCS: 70450; 71046; 71101; 71250; 76604; 80048; 80053; 82607; 82728; 83540; 83550; 83735; 84100; 84484; 85025; 85027; 92610; 93005; 96365; 96375; 97116; 97163; 97166; 97530; 99285; J2916